=== PATIENT | female | born 1960 | race Caucasian/White ===

== ENCOUNTER → 2016-10-29 | Outpatient (CLI) | payer OTHER ==
--- NOTE | 2016-10-29 12:28 | XR ---
EXAMINATION TYPE: XR KUB DATE OF EXAM: 10/29/2016 12:15 PM CLINICAL HISTORY: Left-sided flank pain. History of bilateral kidney stones. TECHNIQUE: 2 supine KUB images of the abdomen are obtained. COMPARISON: CT abdomen and pelvis November 24, 2015. FINDINGS: Multiple bilateral renal calculi are redemonstrated with at least 15 calculi noted bilatera lly varying in sizes and shapes predominantly small all measuring under 5 mm. Rounded densities in bi lateral pelvis are consistent with phleboliths, right greater than left. There is overall nonobstructive bowel gas pattern. Visualized osseous structures are intact. Visualiz ed lung bases are clear. IMPRESSION: Extensive bilateral nephrolithiasis redemonstrated.
== END | disposition home or self-care (01) ==
LOC: RADXRMAIN 11:59
PROVIDERS: ATTEND Urology
DX: N20.0 Calculus of kidney (principal)
CPT/HCPCS: 74000

== ENCOUNTER → 2017-02-15 | Outpatient (CLI) | payer OTHER ==
[2017-02-15 12:25] LABS: Appearance,Urine Clear (Clear); Bilirubin,Urine Negative (Negative); Glucose,Urine (UA) Negative (Negative); Ketones,Urine Negative (Negative); Leukocyte Esterase,Urine Large (Negative); Mucus,Urine Rare /hpf; Nitrite,Urine Negative (Negative); PH, Urine 6.5 (5.0-8.0); Particle Count 1079; Protein,Urine Negative (Negative); RBC,Urine 18 /hpf (0-5); UA Billing (MACRO vs. MICRO) MICRO; Urobilinogen,Urine <2.0 mg/dL (<2.0); WBC,Urine 44 /hpf (0-5)
--- NOTE | 2017-02-18 09:32 | XR ---
EXAMINATION TYPE: XR abdomen 1V DATE OF EXAM ORDERED: 02/15/2017 HISTORY: N20.0 kidney stones. COMPARISON: Previous study dated 10/29/2016. FINDINGS: There is extensive nephrolithiasis present bilaterally. These are not as well-visualized as on the previous examination. The largest on the left measures approximately 4 cm. All other remainin g stones appear smaller than this. There are multiple phleboliths within the pelvis. The abdominal ga s pattern is normal.. IMPRESSION: STABLE, EXTENSIVE NEPHROLITHIASIS.
== END | disposition home or self-care (01) ==
LOC: LABWHC1 11:06
PROVIDERS: ATTEND Urology
DX: N20.0 Calculus of kidney (principal)
CPT/HCPCS: 74000; 81001

== ENCOUNTER → 2017-05-19 | Outpatient (CLI) | payer OTHER ==
[2017-05-19 10:24] LABS: Basophils % (A) 0 %; Eosinophils # (A) 0.3 k/uL (0-0.7); Eosinophils % (A) 4 %; HCT 43.9 % (34.0-46.0); HDW 2.52; HGB 14.3 gm/dL (11.4-16.0); Luc # (Auto) 0.11; Luc % (Auto) 2; Lymphocytes # (A) 1.8 k/uL (1.0-4.8); Lymphocytes % (A) 29 %; MCH 30.7 pg (25.0-35.0); MCHC 32.6 g/dL (31.0-37.0); MCV 94.4 fL (80.0-100.0); Mean Platelet Volume 9.4; Monocytes # (A) 0.4 k/uL (0-1.0); Monocytes % (A) 7 %; Neutrophils # (A) 3.6 k/uL (1.3-7.7); Neutrophils % (A) 58 %; RBC 4.66 m/uL (3.80-5.40); RDW 12.9 % (11.5-15.5); WBC 6.2 k/uL (3.8-10.6); WBC (Perox) 6.54
[2017-05-19 10:42] LABS: ALT 35 U/L (9-52); AST 20 U/L (14-36); Alkaline Phosphatase 78 U/L (38-126); Anion Gap 6 mmol/L; Blood Urea Nitrogen 16 mg/dL (7-17); Calcium 9.9 mg/dL (8.4-10.2); Carbon Dioxide 30 mmol/L (22-30); Chloride 107 mmol/L (98-107); Cholesterol 213 mg/dL (<200); Glucose 97 mg/dL (74-99); HDL Cholesterol 59 mg/dL (40-60); Non-African American GFR(MDRD) >60 (>60 ml/min/1.73 sqM); Potassium 5.7 mmol/L (3.5-5.1); Sodium 143 mmol/L (137-145); Total Bilirubin 0.5 mg/dL (0.2-1.3); Total Protein 6.6 g/dL (6.3-8.2)
--- NOTE | 2017-05-20 10:57 | MM ---
Reason for exam: additional evaluation requested from prior study. Last mammogram was performed 3 years and 5 months ago. History: Patient has history of breast cancer at age 50. Family history of breast cancer in maternal cousin at age 40. Malignant left breast needle localization of both breasts, November 04, 2010. Malignant left breast needle localization of both breasts, November 04, 2010. Mastectomy of the left breast. Physical Findings: Nurse did not find any significant physical abnormalities on exam. MG Diagnostic Mammo RT w CAD CC and MLO view(s) were taken of the right breast. Prior study comparison: December 03, 2013, right diagnostic mammogram w/CAD. December 01, 2012, right diagnostic mammogram w/CAD. The breast tissue is heterogeneously dense. This may lower the sensitivity of mammography. There is no discrete abnormality. No significant new findings when compared with previous films. These results were verbally communicated with the patient and result sheet given to the patient on 05/19/17. ASSESSMENT: Negative, BI-RAD 1 RECOMMENDATION: Follow-up diagnostic mammogram of the right breast in 1 year.
== END | disposition home or self-care (01) ==
LOC: RADMAMWWP 09:07
PROVIDERS: ATTEND Family Medicine
DX: Z08 Encounter for follow-up examination after completed treatment for malignant neoplasm (principal); Z85.3 Personal history of malignant neoplasm of breast; Z00.00 Encounter for general adult medical examination without abnormal findings
CPT/HCPCS: 80061; 80053; 84443; 85025; 82306; 36415; G0206

== ENCOUNTER → 2017-05-26 | Outpatient (CLI) | payer OTHER ==
--- NOTE | 2017-05-26 11:44 | US ---
EXAMINATION TYPE: US kidneys/renal and bladder DATE OF EXAM: 05/26/2017 COMPARISON: CT abdomen and pelvis November 24, 2015 CLINICAL HISTORY: N20.0 Kidney stone. History of kidney stones EXAM MEASUREMENTS: Right Kidney: 9.5 x 3.2 x 3.6 cm Left Kidney: 10.6 x 4.9 x 4.3 cm Right Kidney: cystic area upper pole = 1.0 x 0.7 x 1.0cm appears simple, possibly new from recent CTS was not identified, multiple dense echogenic areas (stones) noted Left Kidney: multiple dense echogenic areas noted (stones) Bladder: appears wnl Bilateral Jets seen: yes There is no evidence for hydronephrosis at this point in time. No nephrolithiasis is seen. No frandy s are identified. The urinary bladder is anechoic. Bilateral ureteral jets are seen. IMPRESSION: Persistent multiple renal calculi bilaterally without hydronephrosis. Underlying medullary nephrocalc inosis is likely present. Clinical correlation advised.
== END | disposition home or self-care (01) ==
LOC: RADUSWWP 09:02
PROVIDERS: ATTEND Family Medicine
DX: N20.0 Calculus of kidney (principal)
CPT/HCPCS: 76770

== ENCOUNTER → 2017-12-26 | Outpatient (CLI) | payer OTHER ==
--- NOTE | 2017-12-26 14:05 | US ---
EXAMINATION TYPE: US abdomen complete DATE OF EXAM: 12/26/2017 COMPARISON: CT 08/11/2016 CLINICAL HISTORY: 57-year-old female RUQ Pain R10.11. Pt states liver lesion seen on CT, pt following -up/ States LUQ pain, history of renal stones Technique: Multiple sonographic images of the abdomen are obtained. FINDINGS: Liver Length: 16.9 cm Gallbladder Wall: 0.1 cm CBD: 0.4 cm Spleen: 9.1 cm Right Kidney: 9.4 x 3.3 x 4.4 cm Left Kidney: 10.6 x 4.2 x 4.2 cm Pancreas: Tail obscured by overlying bowel gas; visualized portions show no gross abnormality. Liver: Two echogenic lesions within right lobe of liver, 1)= anterior to right kidney 2.5 x 1.3 x 2. 5 cm 2)= at dome= 2.5 x 2.3 x 2.0 cm Gallbladder: wnl Evidence for sonographic Li's sign: No CBD: wnl Spleen: wnl Right Kidney: No evidence of hydro, multiple renal calculi as seen on previous, Cyst upper pole as s een on previous= 1.2 x 1.0 x 1.0 cm. Cortical thinning suggesting underlying chronic medical renal di sease. Left Kidney: No evidence of hydronephrosis. Suggestion of multiple calculi as seen on previous measu ring up to 4 mm. Upper IVC: wnl Abd Aorta: wnl IMPRESSION: 1. 2 echogenic lesions within the right liver lobe measuring 2.5 cm each, relatively stable from the CT of 08/11/2016 and most suggestive of benign hemangiomas. 2. Bilateral nephrolithiasis without hydronephrosis. Atrophic right kidney.
== END | disposition home or self-care (01) ==
LOC: RADUSWWP 13:14
PROVIDERS: ATTEND Family Medicine
DX: N20.0 Calculus of kidney (principal); N26.1 Atrophy of kidney (terminal); K76.9 Liver disease, unspecified
CPT/HCPCS: 76700

== ENCOUNTER → 2018-11-15 | Outpatient (CLI) | payer OTHER ==
--- NOTE | 2018-11-15 14:34 | BD ---
EXAMINATION TYPE: Axial Bone Density DATE OF EXAM: 11/15/2018 COMPARISON: NONE CLINICAL HISTORY: screening Height: 5'2 Weight: 108 FRAX RISK QUESTIONS: History of Fracture in Adulthood: y Secondary Osteoporosis: Current Tobacco Use: n RISK FACTORS HISTORY OF: History of Wrist Fracture: rt When: 2018 Diet low in dairy products/other sources of calcium: y Postmenopausal woman: y MEDICATIONS: Additional History: breast cancer left , 2009. EXAM MEASUREMENTS: Bone mineral densitometry was performed using the [employer] System. Bone mineral density as measured about the Lumbar spine is: ----- L1-L4(G/cm2): 0.781 T Score Values are as follows: ----- L2: -3.4 ----- L3: -3.3 ----- L4: -3.2 ----- L1-L4: -3.3 Bone mineral density about the R hip (g/cm2): 0.726 Bone mineral density about the L hip (g/cm2): 0.711 T Score values are as follows: -----R Neck: -2.2 -----L Neck: -2.4 -----R Total: -2.6 -----L Total: -2.7 IMPRESSION: Osteoporosis (T Score less than -2.5). There is increased fracture risk and therapy is usually indicated based on age. Re-Screen 1-2 years. NOTE: T-SCORE=SD OF THE YOUNG ADULT MEAN.
== END ==
LOC: RADBDWWP 12:42
PROVIDERS: ATTEND Family Medicine
DX: M81.0 Age-related osteoporosis without current pathological fracture (principal)
CPT/HCPCS: 77080

== ENCOUNTER 2019-05-17 23:48 | Emergency (ER) | payer OTHER ==
[2019-05-18 00:54] LABS: Basophils # (A) 0.1 k/uL (0-0.2); Basophils % (A) 1 %; Eosinophils # (A) 0.5 k/uL (0-0.7); Eosinophils % (A) 4 %; HCT 37.9 % (34.0-46.0); Lymphocytes # (A) 2.6 k/uL (1.0-4.8); Lymphocytes % (A) 22 %; MCH 28.8 pg (25.0-35.0); MCHC 31.7 g/dL (31.0-37.0); MCV 91.1 fL (80.0-100.0); Mean Platelet Volume 7.9; Monocytes # (A) 0.5 k/uL (0-1.0); Monocytes % (A) 4 %; Neutrophils # (A) 8.3 k/uL (1.3-7.7); Neutrophils % (A) 69 %; Platelet Count 291 k/uL (150-450); RBC 4.16 m/uL (3.80-5.40); RDW 13.9 % (11.5-15.5); WBC 12.2 k/uL (3.8-10.6)
[2019-05-18 01:00] LABS: Albumin 3.9 g/dL (3.5-5.0); Calcium 9.4 mg/dL (8.4-10.2); Potassium 4.2 mmol/L (3.5-5.1); Total Bilirubin 0.1 mg/dL (0.2-1.3); Total Protein 6.4 g/dL (6.3-8.2)
--- NOTE | 2019-05-18 01:08 | ED ---
Abdominal Pain HPI - General Chief Complaint: Abdominal Pain Stated Complaint: poss kidney stone Time Seen by Provider: 05/18/19 00:13 Source: patient Mode of arrival: ambulatory Limitations: no limitations - History of Present Illness MD Complaint: flank pain Onset/Timin -: month(s) Location: R flank Radiation: RLQ Migration to: no migration Severity: moderate Quality: sharp Consistency: colicky Improves With: nothing Worsens With: nothing Associated Symptoms: denies other symptoms - Related Data Allergies Allergy/AdvReac Type Severity Reaction Status Date / Time No Known Allergies Allergy Verified 05/18/19 00:09 Review of Systems ROS Statement: Those systems with pertinent positive or pertinent negative responses have been documented in the HPI. ROS Other: All systems not noted in ROS Statement are negative. Constitutional: Denies: fever, chills Respiratory: Denies: cough, dyspnea Cardiovascular: Denies: chest pain, palpitations Gastrointestinal: Reports: as per HPI, abdominal pain. Denies: nausea, vomiting, diarrhea, constipation Genitourinary: Denies: dysuria, frequency, hematuria, discharge Musculoskeletal: Denies: back pain Skin: Denies: rash Neurological: Denies: headache Past Medical History Past Medical History: Cancer, Eye Disorder Additional Past Medical History / Comment(s): kidney stones , skin caner, Hepatitis C ( years ago ) History of Any Multi-Drug Resistant Organisms: None Reported Past Surgical History: Breast Surgery Additional Past Surgical History / Comment(s): cyst , lithotripsy, stents placed and removed. Past Psychological History: No Psychological Hx Reported Smoking Status: Former smoker Past Alcohol Use History: None Reported Past Drug Use History: None Reported General Exam Limitations: no limitations General appearance: alert, in no apparent distress Head exam: Present: atraumatic, normocephalic Eye exam: Present: normal appearance. Absent: scleral icterus, conjunctival injection Respiratory exam: Present: normal lung sounds bilaterally. Absent: respiratory distress, wheezes, rales, rhonchi, stridor Cardiovascular Exam: Present: regular rate, normal rhythm, normal heart sounds. Absent: systolic murmur, diastolic murmur, rubs, gallop GI/Abdominal exam: Present: soft. Absent: distended, tenderness, guarding, rebound, rigid, mass Extremities exam: Present: normal inspection, normal capillary refill. Absent: pedal edema, calf tenderness Back exam: Present: normal inspection, CVA tenderness (R). Absent: CVA tenderness (L) Neurological exam: Present: alert, normal gait Skin exam: Present: warm, dry, intact, normal color. Absent: rash Course Vital Signs 05/18/19 05/18/19 05/18/19 00:02 01:39 03:06 Temperature 97.2 F L 98.6 F Pulse Rate 84 65 63 Respiratory 16 18 17 Rate Blood Pressure 158/98 104/70 107/77 O2 Sat by Pulse 98 97 99 Oximetry Medical Decision Making - Medical Decision Making Reviewed the results with the patient, who then requested that we page her urologist Dr. Kulwant Holt from the [facility] urology department. I did speak with the hospital service unit operator and was informed that a doctor Lia is covering tonight and they did page. Discussed further care with the patient, and she states that she does not see the urologist here in town. She would like to follow with her physician and again there patient had not returned call at this point. The patient states she is tired of waiting and would like to go home and rest. We discussed appropriate further care and follow-up. He does state that she started a course of antibiotics today taking the first dose of ciprofloxacin before she came here. She will continue the course, and follow with her urologist. - Lab Data Result diagrams: 05/18/19 00:35 05/18/19 00:35 Lab Results 05/18/19 05/18/19 05/18/19 Range/Units 00:35 00:35 00:43 WBC 12.2 H (3.8-10.6) k/uL RBC 4.16 (3.80-5.40) m/uL Hgb 12.0 (11.4-16.0) gm/dL Hct 37.9 (34.0-46.0) % MCV 91.1 (80.0-100.0) fL MCH 28.8 (25.0-35.0) pg MCHC 31.7 (31.0-37.0) g/dL RDW 13.9 (11.5-15.5) % Plt Count 291 (150-450) k/uL Neutrophils % 69 % Lymphocytes % 22 % Monocytes % 4 % Eosinophils % 4 % Basophils % 1 % Neutrophils # 8.3 H (1.3-7.7) k/uL Lymphocytes # 2.6 (1.0-4.8) k/uL Monocytes # 0.5 (0-1.0) k/uL Eosinophils # 0.5 (0-0.7) k/uL Basophils # 0.1 (0-0.2) k/uL Sodium 141 (137-145) mmol/L Potassium 4.2 (3.5-5.1) mmol/L Chloride 104 (98-107) mmol/L Carbon Dioxide 27 (22-30) mmol/L Anion Gap 10 mmol/L BUN 20 H (7-17) mg/dL Creatinine 0.88 (0.52-1.04) mg/dL Est GFR (CKD-EPI)AfAm 84 (>60 ml/min/1.73 sqM) Est GFR (CKD-EPI)NonAf 73 (>60 ml/min/1.73 sqM) Glucose 123 H (74-99) mg/dL Calcium 9.4 (8.4-10.2) mg/dL Total Bilirubin 0.1 L (0.2-1.3) mg/dL AST 20 (14-36) U/L ALT 16 (9-52) U/L Alkaline Phosphatase 80 (38-126) U/L Total Protein 6.4 (6.3-8.2) g/dL Albumin 3.9 (3.5-5.0) g/dL Amylase 127 H (30-110) U/L Lipase 140 (23-300) U/L Urine Color Yellow Urine Appearance Cloudy H (Clear) Urine pH 6.5 (5.0-8.0) Ur Specific [place] 1.012 (1.001-1.035) Urine Protein Trace H (Negative) Urine Glucose (UA) Negative (Negative) Urine Ketones Negative (Negative) Urine Blood Moderate H (Negative) Urine Nitrite Negative (Negative) Urine Bilirubin Negative (Negative) Urine Urobilinogen <2.0 (<2.0) mg/dL Ur Leukocyte Esterase Large H (Negative) Urine RBC 152 H (0-5) /hpf Urine WBC 168 H (0-5) /hpf Ur Squamous Epith Cells 4 (0-4) /hpf Urine Bacteria Rare H (None) /hpf Urine Mucus Rare H (None) /hpf Disposition Clinical Impression: Kidney stone Disposition: HOME SELF-CARE Condition: Fair Instructions (If sedation given, give patient instructions): Kidney Stones (ED) Is patient prescribed a controlled substance at d/c from ED?: No Referrals: Clint Gallardo MD [Primary Care Provider] - 1-2 days
[2019-05-18 01:09] LABS: Appearance,Urine Cloudy (Clear); Bacteria,Urine Rare /hpf; Bilirubin,Urine Negative (Negative); Blood,Urine Moderate (Negative); Color,Urine Yellow; Glucose,Urine (UA) Negative (Negative); Ketones,Urine Negative (Negative); Leukocyte Esterase,Urine Large (Negative); Mucus,Urine Rare /hpf; Nitrite,Urine Negative (Negative); PH, Urine 6.5 (5.0-8.0); Protein,Urine Trace (Negative); RBC,Urine 152 /hpf (0-5); Specific Gravity,Urine 1.012 (1.001-1.035); Squamous Epithelial Cell,Urine 4 /hpf (0-4); Urobilinogen,Urine <2.0 mg/dL (<2.0); WBC,Urine 168 /hpf (0-5)
--- NOTE | 2019-05-18 02:08 | CT ---
EXAM: CT Abdomen and Pelvis Without Intravenous Contrast CLINICAL HISTORY: Right flank pain. TECHNIQUE: Axial computed tomography images of the abdomen and pelvis without intravenous contrast. CTDI is 6.4 mGy and DLP is 301.2 mGy-cm. This CT exam was performed using one or more of the following dose reduction techniques: automated exposure control, adjustment of the mA and/or kV according to patient size, and/or use of iterative reconstruction technique. COMPARISON: 08/11/2016. FINDINGS: Limitations: Limited evaluation of the viscera due to lack of intravenous contrast administration. Lung bases: Minimal subsegmental atelectasis within the inferior lingula region. Pleural space: No pleural effusions. Heart: Small pericardial effusion. ABDOMEN: Liver: Unremarkable. Gallbladder and bile ducts: Unremarkable. No calcified stones. No ductal dilation. Pancreas: Unremarkable. No ductal dilation. Spleen: Unremarkable. No splenomegaly. Adrenals: Probable 0.6 cm adenoma of the right adrenal gland. Kidneys and ureters: Diffuse and numerous nonobstructing calculi throughout the right kidney is again noted, similar to the previous study. Diffuse nonobstructing calculi throughout the left kidney is noted, again similar to the previous study. No hydronephrosis bilaterally. 0. 65 cm calculus is noted at the junction of the proximal to mid right ureter, best seen on series 201 image 60. 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 Two 0.3 cm nonobstructing calculi in the distal left ureter also noted. Stomach and bowel: Unremarkable. No obstruction. No mucosal thickening. PELVIS: Appendix: No findings to suggest acute appendicitis. Bladder: Unremarkable. No stones. Reproductive: Unremarkable as visualized. ABDOMEN and PELVIS: Intraperitoneal space: Unremarkable. No free air. No significant fluid collection. Bones/joints: Mild to moderate degenerative disc disease of the spinal column. Mild to moderate osteoarthritic changes about the sacroiliac joints. No acute fracture. No dislocation. Soft tissues: Unremarkable. Vasculature: Numerous pelvic phleboliths are noted similar to the previous study. Lymph nodes: Unremarkable. No enlarged lymph nodes. IMPRESSION: No hydronephrosis. Numerous bilateral nonobstructing renal calculi. The possibility of nephrocalcinosis should be considered. Proximal right ureteral calculus as discussed above. Bilateral distal calculi in both ureters. Please see above discussion. The bladder is grossly unremarkable. No inflammatory changes.
[2019-05-18] MEDS: TAMSULOSIN 0.4 MG CAP.ER.24H PO STA (03:03)
[2019-05-18 03:16] VITALS: BP 107/77; PULSE 63; RESP 17; TEMP 98.6
== END 2019-05-18 03:32 | disposition home or self-care (01) ==
LOC: EC 23:48
DX: N20.0 Calculus of kidney (principal); F17.200 Nicotine dependence, unspecified, uncomplicated; Z85.828 Personal history of other malignant neoplasm of skin; Z86.19 Personal history of other infectious and parasitic diseases; Z98.890 Other specified postprocedural states
CPT/HCPCS: 36415; 74176; 80053; 81001; 82150; 83690; 85025; 99284

== ENCOUNTER → 2019-05-25 | Outpatient (CLI) | payer OTHER | END | disposition home or self-care (01) | LOC: LABWHC1 14:46 | PROVIDERS: ATTEND Urology | DX: Z01.812 Encounter for preprocedural laboratory examination (principal); N20.0 Calculus of kidney; N20.1 Calculus of ureter | CPT/HCPCS: 36415; 87086; 93005 ==

== ENCOUNTER → 2019-10-10 | Outpatient (CLI) | payer OTHER ==
[2019-10-10 10:18] VITALS: BP 111/73; PULSE 64; RESP 18; TEMP 98
--- NOTE | 2019-10-10 11:13 | P.HPOB ---
History of Present Illness H&P Date: 10/10/19 Chief Complaint: The patient is here for her routine gynecologic exam and ma mmogram. This is a 59-year-old 032 with an LMP of 2009. The patient is here to reestablish with this office. She is status post tubal ligation. It has been about 5 years since her last pelvic exam. She states she believes she had a yeast infection after taking antibiotics a few weeks ago. She was treated with a pill, but she states she still feels slightly irritated and symptoms are not completely gone. She is otherwise without complaints and denies any postmenopausal bleeding. She recently got back together with her ex- after 2 years of being apart. She states he had been with somebody else during the 2 years apart. Review of Systems The patient's weight has been stable over the last year. She denies respiratory, cardiac, or G.I. problems. Past Medical History Past Medical History: Cancer, Eye Disorder, Renal Disease Additional Past Medical History / Comment(s): Left breast cancer 2009, kidney stones , skin cancer, glaucoma, Hepatitis C (treated years ago), and osteoporosis 2018. 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 History of Any Multi-Drug Resistant Organisms: None Reported Past Surgical History: Breast Surgery Additional Past Surgical History / Comment(s): Right salpingo-oophorectomy 2009(benign), lithotripsy, stents placed and removed for kidney stones. Colonoscopy 2014(next after 5yr per pt). Past Psychological History: No Psychological Hx Reported, Anxiety Smoking Status: Former smoker Past Alcohol Use History: None Reported Additional Past Alcohol Use History / Comment(s): Quit smoking in 2019. Previous heavy alcohol use as a teenager. Past Drug Use History: None Reported Additional History: She has been twice. She has been back with her second ex- on and off. 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 - Past Family History Father Family Medical History: Cancer Additional Family Medical History / Comment(s): Lung cancer. Maternal cousin Family Medical History: Cancer Additional Family Medical History / Comment(s): Breast cancer. Medications and Allergies Home Medications Medication Instructions Recorded Confirmed Type No Known Home Medications 10/10/19 10/10/19 History Allergies Allergy/AdvReac Type Severity Reaction Status Date / Time No Known Allergies Allergy Verified 10/10/19 10:13 Exam Vital Signs Temp Pulse Resp BP Pulse Ox 10/10/19 10:16 98.0 F 64 18 111/73 100 Intake and Output 10/09/19 10/10/19 10/10/19 22:59 06:59 14:59 Other: Weight 49.895 kg Height 5 feet 3 inches, weight 110 pounds, BMI 19.5. This is a well-developed well-nourished white female who is alert and oriented times 3 in no acute distress. HEENT: Within normal limits. NECK: Supple without mass or thyromegaly. CHEST AND LUNGS: Clear to auscultation. HEART: Regular rate and rhythm. BREASTS: Right breast is without mass or discharge. Left side is consistent with previous left mastectomy. There are no masses or tenderness. AXILLARY EXAM: Negative for adenopathy. BACK: Negative for CVA tenderness. ABDOMEN: Soft, nontender, without palpable masses. PELVIC EXAM: Normal external genitalia with mild to moderate atrophy. Cervix and vagina appear normal with mild atrophy. There is no unusual discharge. There is no evidence of prolapse. The uterus is midposition, nongravid size and nontender. There are no palpable adnexal masses or tenderness. RECTAL EXAM: Rectovaginal exam is negative for mass or tenderness and is negative for occult blood. EXTREMITIES: Nontender. IMPRESSION: 1. 59-year-old menopausal female with normal gynecologic exam. 2. Slight vulvar irritation and pruritus after treatment for yeast infection with Diflucan weeks ago without any significant physical findings at this time. Possible residual symptoms or possible persistent Candidiasis. 3. Recent sexual activity with her ex- after she knows that he has been with other sexual partners. High-risk sexual activity. 4. History of osteoporosis per the patient and she is declining medication for this. 5. History of left breast cancer status post mastectomy. No evidence of recurrence on exam today. PLAN: 1. Pap smear was performed. 2. Self breast awareness was discussed with the patient. 3. Diagnostic right mammogram will be done today. 4. GC and Chlamydia testing was obtained from the cervix. Affirm nucleic acid testing was obtained from the vagina. This will include testing for Trichomonas, Gardnerella, and Elise. STD blood testing recommended to the patient and she is declining blood tests. 5. Osteoporosis management was discussed. I have stressed the importance of adequate calcium, vitamin D and regular exercise. Recommended amounts of calcium and vitamin D were also discussed. I have also recommended that she consider treatment for the osteoporosis with medicine. She was offered this by a bone specialist last year when she was diagnosed with osteoporosis. She declined medications at that time and again is declining medications. She understands that she is at an increased risk for bone fracture with the diagnosis of osteoporosis. 6. She believes her colonoscopy is due and have recommended that she proceed having this done. She can have this done through her primary care physician. 7. STD prevention was discussed. I have stressed the importance of limiting sexual partners and to avoid sexual partners who have multiple sexual partners. I have recommended that she use condoms if she is sexually active. 8. She was advised to return in one year for her annual well woman exam.
--- NOTE | 2019-10-10 11:37 | MM ---
Reason for exam: additional evaluation requested from prior study. Last mammogram was performed 2 years and 5 months ago. History: Patient has history of breast cancer at age 50. Family history of breast cancer in maternal cousin at age 40. Malignant left breast needle localization of both breasts, November 04, 2010. Malignant left breast needle localization of both breasts, November 04, 2010. Mastectomy of the left breast. Physical Findings: Dr. Hayes did breast exam. MG Diagnostic Mammo RT w CAD CC and MLO view(s) were taken of the right breast. Prior study comparison: May 19, 2017, right breast MG diagnostic mammo RT w CAD. December 03, 2013, right diagnostic mammogram w/CAD. The breast tissue is heterogeneously dense. This may lower the sensitivity of mammography. No suspicious abnormality. No significant new findings when compared with previous films. These results were verbally communicated with the patient and result sheet given to the patient on 10/10/19. ASSESSMENT: Negative, BI-RAD 1 RECOMMENDATION: Follow-up diagnostic mammogram of the right breast in 1 year.
[2019-10-11 04:38] LABS: Gardnerella Positive (Negative); Source Vagina; Trichomonas Negative (Negative)
[2019-10-11 15:03] LABS: C. trachomatis,PCR Negative (Neg,Equiv); Chlamydia trachomatis Source Cervix; N. gonorrhoeae,PCR Negative (Neg,Equiv); Neisseria Source Cervix
== END ==
LOC: WWCWWP 10:06
PROVIDERS: ATTEND Obstetrics & Gynecology
DX: Z08 Encounter for follow-up examination after completed treatment for malignant neoplasm (principal); L29.2 Pruritus vulvae; Z11.3 Encounter for screening for infections with a predominantly sexual mode of transmission; Z85.3 Personal history of malignant neoplasm of breast
CPT/HCPCS: 77065; 87480; 87491; 87510; 87591; 87660

== ENCOUNTER → 2019-11-16 | Outpatient (CLI) | payer OTHER ==
[2019-11-16 07:13] LABS: Basophils % (A) 0 %; Eosinophils # (A) 0.3 k/uL (0-0.7); Eosinophils % (A) 4 %; HCT 44.2 % (34.0-46.0); HGB 13.8 gm/dL (11.4-16.0); Lymphocytes # (A) 1.9 k/uL (1.0-4.8); Lymphocytes % (A) 27 %; MCH 29.2 pg (25.0-35.0); MCHC 31.1 g/dL (31.0-37.0); MCV 93.8 fL (80.0-100.0); Mean Platelet Volume 10.4; Monocytes # (A) 0.5 k/uL (0-1.0); Monocytes % (A) 7 %; Neutrophils # (A) 4.2 k/uL (1.3-7.7); Neutrophils % (A) 61 %; Platelet Count 159 k/uL (150-450); RBC 4.71 m/uL (3.80-5.40); RDW 12.9 % (11.5-15.5)
[2019-11-16 07:22] LABS: Albumin 4.3 g/dL (3.5-5.0); Calcium 9.4 mg/dL (8.4-10.2); Potassium 4.3 mmol/L (3.5-5.1); Total Bilirubin 0.3 mg/dL (0.2-1.3); Total Protein 6.8 g/dL (6.3-8.2)
--- NOTE | 2019-11-16 08:07 | US ---
EXAMINATION TYPE: US abdomen complete DATE OF EXAM: 11/16/2019 COMPARISON: Abdominal ultrasound dated 12/26/2017 CLINICAL HISTORY: R10.19 Abdominal pain. RUQ pain for 1 month, vomiting EXAM MEASUREMENTS: Liver Length: 12.7 cm Gallbladder Wall: 0.3 cm CBD: 0.4 cm Spleen: 10.6 cm Right Kidney: 9.6 x 3.7 x 4.2 cm Left Kidney: 9.6 x 4.2 x 3.7 cm Pancreas: Tail obscured by overlying bowel gas Liver: Redemonstration of 2 hyperechoic masses are at the first measures 2.6 x 1.9 x 2.0cm (previousl y measured 2.5 x 1.3 x 2.5 cm anterior to the right kidney) and 2.2 x 2.6 x 2.1cm (previously measure d 2.5 x 2.3 x 2.0 cm at the hepatic dome) Gallbladder: no evidence of stones Evidence for sonographic Li's sign: no CBD: wnl Spleen: wnl Right Kidney: multiple stones noted with largest = 1.2cm, cystic areas noted = 1.1cm upper pole and 1.1cm mid Left Kidney: multiple stones noted with largest = 1.0cm Upper IVC: wnl Abd Aorta: wnl The liver contains 2 masses as described above. The intrahepatic portion of the IVC and proximal abdo alberto aorta are within normal limits. There is no evidence of cholelithiasis. Common bile duct is u nremarkable. The visualized portions of the pancreas are homogenous. The spleen is unremarkable. K idneys are symmetric and free of hydronephrosis. No renal lesions are seen. IMPRESSION: 1. There are changes in measurement size of the hyperechoic hepatic masses that could reflect technic al differences and obliquity of imaging. However given some interval growth from the prior of 2018 mo re definitive characterization with three-phase enhanced CT or MR abdomen is recommended. 2. Bilateral renal calculi measuring up to 1.2 cm on the right and 1.0 cm on the left. 3. No sonographic evidence of cholelithiasis nor acute cholecystitis in this patient with right upper quadrant pain and vomiting.
== END | disposition home or self-care (01) ==
LOC: RADUSWWP 06:43
PROVIDERS: ATTEND Family Medicine
DX: N20.0 Calculus of kidney (principal); R16.0 Hepatomegaly, not elsewhere classified; Z00.00 Encounter for general adult medical examination without abnormal findings
CPT/HCPCS: 76700; 80053; 80061; 82306; 85025

== ENCOUNTER → 2020-01-14 | Outpatient (CLI) | payer OTHER ==
--- NOTE | 2020-01-14 19:45 | MR ---
EXAMINATION TYPE: MR liver wo/w con DATE OF EXAM: 01/14/2020 COMPARISON: Ultrasound 11/16/2019 HISTORY: Rt side abdominal pain CONTRAST: Standard multiplanar, multisequence MRI departmental protocol utilizing 5 mL intravenous Gadavist jolynn olinium contrast. FINDINGS: Near the dome of the liver there is a peripherally enhancing lesion noted measuring 2.2 cm which comp letely fills in on delayed images and is compatible with hemangioma. A second lesion near the central portion of the liver left hepatic lobe medial segment demonstrates similar characteristics although does not completely fill in and is also felt to reflect cavernous hemangioma. Additional 8.5 mm lesio n is noted within the periphery of the posterior segment right hepatic lobe. No additional lesions se en with certainty. The gallbladder is free of cholelithiasis. Pancreas spleen and adrenal glands are unremarkable. Renal cysts are noted bilaterally. IMPRESSION: Findings compatible with hepatic cavernous hemangiomas.
== END | disposition home or self-care (01) ==
LOC: RADMRIMAIN 14:36
PROVIDERS: ATTEND Internal Medicine Gastroenterology
DX: K76.9 Liver disease, unspecified (principal)
CPT/HCPCS: 74183; A9585

== ENCOUNTER → 2021-07-22 | Outpatient (CLI) | payer OTHER ==
--- NOTE | 2021-07-22 12:09 | MM ---
Reason for exam: additional evaluation requested from prior study. Last mammogram was performed 1 year and 9 months ago. History: Patient is postmenopausal, has history of breast cancer at age 50, and history of other cancer. Family history of breast cancer in maternal cousin at age 40. Malignant left breast needle localization of both breasts, November 04, 2010. Malignant left breast needle localization of both breasts, November 04, 2010. Mastectomy of the left breast. Took hormonal contraceptives for 1 year. Physical Findings: Nurse did not find any significant physical abnormalities on exam. MG Diagnostic Mammo RT w CAD CC, MLO, LM, and spot compression CC view(s) were taken of the right breast. Prior study comparison: October 10, 2019, right breast MG diagnostic mammo RT w CAD. May 19, 2017, right breast MG diagnostic mammo RT w CAD. The breast tissue is heterogeneously dense. This may lower the sensitivity of mammography. Lateral asymmetric density appear more defined but disperses on additional views. These results were verbally communicated with the patient and result sheet given to the patient on 07/22/21. ASSESSMENT: Benign, BI-RAD 2 RECOMMENDATION: Routine screening mammogram of the right breast in 1 year.
== END | disposition home or self-care (01) ==
LOC: RADMAMWWP 11:06
PROVIDERS: ATTEND Family Medicine
DX: N64.89 Other specified disorders of breast (principal); Z85.3 Personal history of malignant neoplasm of breast
CPT/HCPCS: 77065

== ENCOUNTER 2021-11-28 14:18 | Emergency (ER) | payer OTHER ==
[2021-11-28 14:46] VITALS: BP 142/77; PULSE 56; RESP 18; TEMP 97.6
[2021-11-28] MEDS ORDERED: ORPHENADRINE 30 MG/ML 2 ML VIAL IM STA (17:06)
--- NOTE | 2021-11-28 17:14 | ED ---
General Adult HPI - General Chief complaint: Neck Pain/Injury Stated complaint: Headache Time Seen by Provider: 11/28/21 17:00 Source: patient, RN notes reviewed, old records reviewed Mode of arrival: ambulatory Limitations: no limitations - History of Present Illness Initial comments: 61-year-old female presents ambulatory with complaints of left sided neck pain that radiates up into the back of her head. She states has been present for 1 day. No pain yesterday. Denies any fevers, no nausea vomiting or diarrhea. She does have history of breast cancer over 15 years ago in complete remission. She is a smoker. -: days(s) (1) Location: neck (posterior and left trapezius) Radiation: proximal (occiput) Quality: constant, other (tightness) Consistency: constant Improves with: none Worsens with: movement Associated Symptoms: denies other symptoms Treatments Prior to Arrival: none - Related Data Home Medications Medication Instructions Recorded Confirmed Calcium Carbonate [Calcium] 600 mg PO DAILY 11/28/21 11/28/21 Cholecalciferol [Vitamin D3 (25 25 mcg PO DAILY 11/28/21 11/28/21 Mcg = 1000 Iu)] Tamsulosin [Flomax] 0.4 mg PO DAILY 11/28/21 11/28/21 Previous Rx's Medication Instructions Recorded Cyclobenzaprine [Flexeril] 5 mg PO TID PRN 3 Days #9 tablet 11/28/21 Ibuprofen [Motrin] 400 mg PO Q8HR PRN #30 tab 11/28/21 Lidocaine 5% Patch [Lidoderm 5% 1 patch TOPICAL DAILY PRN #7 patch 11/28/21 Patch] Allergies Allergy/AdvReac Type Severity Reaction Status Date / Time heparin (porcine) Allergy Swelling Verified 11/28/21 17:50 Review of Systems ROS Statement: Those systems with pertinent positive or pertinent negative responses have been documented in the HPI. ROS Other: All systems not noted in ROS Statement are negative. Past Medical History Past Medical History: Cancer, Eye Disorder, Renal Disease Additional Past Medical History / Comment(s): Left breast cancer 2009, kidney stones , skin cancer, glaucoma, Hepatitis C (treated years ago), and osteoporosis 2018. 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 History of Any Multi-Drug Resistant Organisms: None Reported Past Surgical History: Breast Surgery Additional Past Surgical History / Comment(s): Right salpingo-oophorectomy 2010(benign), lithotripsy, stents placed and removed for kidney stones. Colonoscopy 2015(next after 5yr per pt). Past Psychological History: No Psychological Hx Reported, Anxiety Past Alcohol Use History: None Reported Past Drug Use History: None Reported - Past Family History Father Family Medical History: Cancer Additional Family Medical History / Comment(s): Lung cancer. Maternal cousin Family Medical History: Cancer Additional Family Medical History / Comment(s): Breast cancer. General Exam Limitations: no limitations General appearance: alert, in no apparent distress Head exam: Present: atraumatic, normocephalic, normal inspection Eye exam: Present: normal appearance ENT exam: Present: mucous membranes moist, other (Tonsil stone right side) Expanded Throat exam: negative: tonsillar erythema, tonsillar exudate, R peritonsillar mass, L peritonsillar mass Neck exam: Present: normal inspection, tenderness (Trapezius), full ROM. Absent: meningismus, lymphadenopathy, thyromegaly Respiratory exam: Present: normal lung sounds bilaterally. Absent: respiratory distress, wheezes, rales, rhonchi, stridor, accessory muscle use, decreased elida th sounds Cardiovascular Exam: Present: bradycardia, normal heart sounds Back exam: Absent: tenderness Neurological exam: Present: alert, oriented X3, normal gait Psychiatric exam: Present: normal affect, normal mood Skin exam: Present: warm, dry, normal color. Absent: cyanosis, diaphoretic Course Vital Signs 11/28/21 14:44 Temperature 97.6 F Pulse Rate 56 L Respiratory 18 Rate Blood Pressure 142/77 O2 Sat by Pulse 95 Oximetry - Reevaluation(s) Reevaluation #1: 11/28/21 18:13 Patient states that she has a "kidney stone stuck" in her and wants to know if her urine is clear. UA was ordered. She denies dysuria, pain or fevers. Time: 18:13 Medical Decision Making - Medical Decision Making Patient complaining of left-sided neck pain worse with movement of the head to the right. She describes the pain as tight and states that she can feel a knot which is not palpable. She denies any injury. She has no fevers no nausea vomiting or diarrhea. Patient does have pain with palpation along the left sternocleidomastoideus muscle. She has no focal neurological deficits she denies headache. She is ambulatory with a steady gait. She was given Norflex and a Lidoderm patch in the emergency room. She was offered Toradol and declined. I instructed her to follow-up with her primary care doctor and return to the emergency room with any new or concerning symptoms. I did tell her that this pain may take a week or more to resolve and she used anti-inflammatories and medications as prescribed. Patient did request that we check her urine for concerns because of a recently diagnosed kidney stone. Patient left prior to results being back. Disposition Clinical Impression: Strain of neck muscle Disposition: HOME SELF-CARE Condition: Good Instructions (If sedation given, give patient instructions): Cervical Strain (ED) Additional Instructions: Use Lidoderm patches, Flexeril and Motrin as prescribed. Follow-up with your primary care doctor on Tuesday. You can also use heat to help relax your neck muscles. Return to the emergency room with any new or concerning symptoms. Prescriptions: Cyclobenzaprine [Flexeril] 5 mg PO TID PRN 3 Days #9 tablet PRN Reason: Pain Lidocaine 5% Patch [Lidoderm 5% Patch] 1 patch TOPICAL DAILY PRN #7 patch PRN Reason: Pain Ibuprofen [Motrin] 400 mg PO Q8HR PRN #30 tab PRN Reason: Pain Is patient prescribed a controlled substance at d/c from ED?: No Referrals: Edison Stroud MD [Primary Care Provider] - 1-2 days Time of Disposition: 19:19
[2021-11-28] MEDS ORDERED: LIDOCAINE 5% PATCH TOPICAL SCH (17:15)
[2021-11-28] MEDS ORDERED: KETOROLAC 15 MG/ML 1 ML VIAL IM STA (18:34)
[2021-11-28 20:23] LABS: Appearance,Urine Clear (Clear); Bacteria,Urine Rare /hpf; Bilirubin,Urine Negative (Negative); Blood,Urine Small (Negative); Color,Urine Light Yellow; Glucose,Urine (UA) Negative (Negative); Hyaline Casts,Urine 1 /lpf (0-2); Ketones,Urine Negative (Negative); Leukocyte Esterase,Urine Small (Negative); Mucus,Urine Rare /hpf; Nitrite,Urine Negative (Negative); Protein,Urine Negative (Negative); RBC,Urine 1 /hpf (0-5); Specific Gravity,Urine 1.007 (1.001-1.035); Urobilinogen,Urine <2.0 mg/dL (<2.0); WBC,Urine 5 /hpf (0-5)
== END 2021-11-28 19:12 | disposition home or self-care (01) ==
LOC: EC 14:18
DX: S16.1XXA Strain of muscle, fascia and tendon at neck level, initial encounter (principal); Z88.8 Allergy status to other drugs, medicaments and biological substances; X58.XXXA Exposure to other specified factors, initial encounter
CPT/HCPCS: 81001; 99284; 96372; J2360

== ENCOUNTER → 2021-12-04 | Outpatient (CLI) | payer OTHER ==
--- NOTE | 2021-12-04 07:39 | XR ---
EXAMINATION TYPE: XR abdomen 1V DATE OF EXAM: 12/04/2021 7:33 AM CLINICAL HISTORY: Kidney stones TECHNIQUE: Single supine KUB image of the abdomen is obtained. COMPARISON: CT abdomen and pelvis 2019. FINDINGS: Innumerable small bilateral renal calculi are redemonstrated. Overall nonobstructive bowel gas pattern. Moderate fecal prominence in the cecum. Visualized lung bas es are clear. Scattered bilateral pelvic phleboliths redemonstrated greater on the right. Osseous str uctures are intact. IMPRESSION: As above.
== END | disposition home or self-care (01) ==
LOC: RADXRMAIN 07:05
PROVIDERS: ATTEND Urology
DX: N20.0 Calculus of kidney (principal); I87.8 Other specified disorders of veins
CPT/HCPCS: 74018

== ENCOUNTER → 2021-12-04 | Outpatient (CLI) | payer OTHER ==
--- NOTE | 2021-12-04 08:37 | CT ---
EXAMINATION TYPE: CT brain wo con DATE OF EXAM: 12/04/2021 HISTORY: Lymphadenopathy. Headache with dizziness per patient. CT DLP: 1142.57 mGycm. Automated Exposure Control for Dose Reduction was Utilized. TECHNIQUE: CT scan of the head is performed without contrast. COMPARISON: None. FINDINGS: There is no acute intracranial hemorrhage or midline shift identified. Ventricles and sul ci within normal limits in size for patient's age. Some scattered areas of low attenuation throughout the deep and periventricular white matter. The globes are intact and the visualized sinuses are henok ar. Nasal septum deviated to right of midline. IMPRESSION: No acute intracranial hemorrhage or midline shift. There is [id number] nonspecifi c white matter change is favored a basis of product of chronic small vessel ischemic change in patien t of this age.
--- NOTE | 2021-12-04 19:45 | CT ---
EXAMINATION TYPE: CT soft tissue neck wo con CT DLP: 316.35 mGycm, Automated exposure control for dose reduction was used. DATE OF EXAM: 12/04/2021 7:45 AM COMPARISON: MRI neck 10/06/2011. CLINICAL INDICATION:Female, 61 years old with history of R59.0 lymphadenopathy; TECHNIQUE: Standard enhanced CT of the neck following intravenous administration of 100 cc of Isovue 300. Axial sections with coronal and sagittal reformats were obtained. FINDINGS: Brain: Visualized portions are grossly unremarkable. Orbits: Unremarkable Sinuses: Grossly unremarkable. Spaces of the neck: Clear and symmetric. Musculoskeletal: No acute osseous pathology. Mild degenerative changes throughout the cervical spine spine. Lymph nodes: Multiple nonenlarged lymph nodes are seen along both anterior chains of the neck. Vascular structures: Minimal atherosclerotic calcifications of the left carotid bifurcation. Thoracic Inlet/airway: Airway is patent. Scattered groundglass opacities are visualized in the upper lung examples include: 1Right upper lobe groundglass opacity measuring 9 mm as well as within the lef t upper lobe measuring 7 mm. Soft tissues/Thyroid: Thyroid and remainder of the soft tissues are unremarkable. IMPRESSION 1. No definite evidence for lymphadenopathy, abscess or significant abnormality. 2. Scattered ground glass opacities within the upper lungs attention on short-term follow-up imaging in 3-6 months to ensure resolution/stability.
== END | disposition home or self-care (01) ==
LOC: RADCTMAIN 06:53
PROVIDERS: ATTEND Family Medicine
DX: R91.8 Other nonspecific abnormal finding of lung field (principal); R51.9 Headache, unspecified; R42 Dizziness and giddiness; R59.0 Localized enlarged lymph nodes
CPT/HCPCS: 70450; 70490

== ENCOUNTER → 2022-04-14 | Outpatient (CLI) | payer OTHER ==
--- NOTE | 2022-04-14 19:06 | US ---
EXAMINATION TYPE: US kidneys/renal and bladder DATE OF EXAM: 04/14/2022 COMPARISON: MRI 01/14/2020 CLINICAL HISTORY: 62-year-old female R10.9 abd pel pain, Z87.442 Hx kidney stones. Pain. Hx kidney st ones, renal cyst. TECHNIQUE: Multiple sonographic images of the kidneys and bladder are obtained. FINDINGS: EXAM MEASUREMENTS: Right Kidney: 10.0 x 4.6 x 3.3 cm Left Kidney: 11.0 x 5.1 x 3.8 cm Right Kidney: Round hypoechoic lesion at the midpole measuring 2.0 cm. Round hypoechoic lesion lower pole measuring 1.5 cm. Either mild pelviectasis versus an extrarenal pelvis. No calyceal dilatation to suggest hydronephrosi s. Multiple hyperechoic foci seen, largest at upper pole: 1.2 x 1.0 x 0.5 cm. Left Kidney: Mild pelviectasis versus an extrarenal pelvis. No calyceal dilatation to suggest hydronephrosis. Tiny benign lower pole cortical cyst measuring 9 mm. Multiple echogenic foci, largest 2 measuring 8 mm each. Bladder: Appears anechoic. Bilateral Jets seen: Yes IMPRESSION: 1. Numerous bilateral renal calculi measuring up to 1.2 cm. 2. No evident hydronephrosis. 3. A couple indeterminate cortical lesions within the right kidney measuring 2.0 and 1.5 cm. These ar e round and hypoechoic, suspected cysts with internal echoes representing debris or artifact. Reasses s in 6 months.
== END | disposition home or self-care (01) ==
LOC: RADUSWWP 15:23
PROVIDERS: ATTEND Family Medicine
DX: N20.0 Calculus of kidney (principal)
CPT/HCPCS: 76770

== ENCOUNTER → 2022-05-13 | Outpatient (CLI) | payer OTHER ==
--- NOTE | 2022-05-13 16:27 | CT ---
EXAMINATION TYPE: CT abdomen pelvis wo con CT DLP: 495 mGycm, Automated exposure control for dose reduction was used. DATE OF EXAM: 05/13/2022 4:04 PM COMPARISON: Renal ultrasound 04/14/2022, CT abdomen pelvis 05/18/2019. CLINICAL INDICATION:Female, 62 years old with history of N20.0 kidney stone; Right flank pain TECHNIQUE: Standard CT of the abdomen and pelvis without IV or oral contrast. Lack of IV or oral co ntrast limits evaluation of solid and hollow organ viscera. Coronal and sagittal reformats were perfo rmed. FINDINGS: LOWER CHEST: Marginal increase in size of 6 mm right lower lobe pulmonary nodule (series 4, image 12) , previously 4 mm in 2019. Small pericardial effusion. ABDOMEN LIVER: Two stable hypoattenuating 2 cm lesions within the right hepatic lobe from 2019 and considered benign. GALLBLADDER AND BILE DUCTS: Unremarkable. PANCREAS: Unremarkable noncontrast appearance. SPLEEN: Unremarkable noncontrast appearance. ADRENAL GLANDS: Stable subcentimeter nodularity to the right adrenal gland. The left adrenal glands u nremarkable. KIDNEYS AND URETERS: No hydronephrosis. Multiple nonobstructive bilateral renal calculi redemonstrate d. Largest within the right superior pole measures up to 6 mm. Largest in the left inferior pole mauri ures up to 6 mm. No definitive ureteral calculi. Stable right renal cyst. PELVIS BLADDER: Incompletely distended but grossly unremarkable. REPRODUCTIVE: Unremarkable. ABDOMEN & PELVIS STOMACH AND BOWEL: Stomach and duodenum are unremarkable. No focal wall thickening or surrounding inf lammatory changes. Stool is present throughout the colon. No evidence of bowel obstruction. PERITONEUM: No evidence of pneumoperitoneum or free fluid. VASCULATURE: Mild atherosclerotic calcifications are present throughout the abdominal aorta and its b ranches. No evidence of aortic aneurysm. Multiple pelvic phleboliths. MUSCULOSKELETAL: No acute osseous abnormalities. Mild retrolisthesis of L1 on L2. Degenerative change s of the visualized spine most pronounced at L5-S1. No aggressive osseous lesions. LYMPH NODES: No gross evidence for lymphadenopathy. SOFT TISSUE/ABDOMINAL WALL: Small fat filled umbilical hernia. IMPRESSION: 1. No evidence for obstructive uropathy. 2. Multiple nonobstructive bilateral renal calculi redemonstrated. 3. Marginal increase in size of right lower lobe 6 mm pulmonary nodule. Follow-up CT chest examinatio n in 1 year is recommended.
== END | disposition home or self-care (01) ==
LOC: RADCTMAIN 15:46
PROVIDERS: ATTEND Urology
DX: N20.0 Calculus of kidney (principal); R91.1 Solitary pulmonary nodule
CPT/HCPCS: 74176

== ENCOUNTER → 2022-07-23 | Outpatient (CLI) | payer OTHER ==
--- NOTE | 2022-07-26 07:16 | MM ---
Reason for Exam: Screening (asymptomatic). Last screening mammogram was performed 12 month(s) ago. Patient History: Menarche at age 15. First Full-Term at age 30. Right ovary removed at age 39. Postmenopausal. Breast cancer, age 50. Other cancer. Patient used Hormonal Contraceptives for 1 year. 2011, Mastectomy on the Left side. 11/04/2010, Bilateral Malignant Excisional Biopsy. 11/04/2010, Bilateral Malignant Excisional Biopsy. Maternal cousin had breast cancer, age 40. Prior Study Comparison: 05/19/2017 Right Diagnostic Mammogram, [facility]. 10/10/2019 Right Diagnostic Mammogram, [facility]. 07/22/2021 Right Diagnostic Mammogram, [facility]. Tissue Density: Right: There are scattered fibroglandular densities. Findings: Analyzed By CAD. Single benign-appearing round calcification right breast. There is no suspicious group of microcalcifications or new suspicious mass in the right breast. Overall Assessment: Benign, BI-RAD 2 Management: Screening Mammogram of the right breast in 1 year. A clinical breast exam by your physician is recommended on an annual basis and results should be correlated with mammographic findings. Electronically signed and approved by: Juan Diego Pelaez M.D.
== END | disposition home or self-care (01) ==
LOC: RADMAMWWP 11:07
PROVIDERS: ATTEND Family Medicine
DX: Z12.31 Encounter for screening mammogram for malignant neoplasm of breast (principal); Z78.0 Asymptomatic menopausal state; Z80.3 Family history of malignant neoplasm of breast; Z90.721 Acquired absence of ovaries, unilateral
CPT/HCPCS: 77067

== ENCOUNTER 2023-10-14 04:44 | Inpatient (IN) | payer OTHER ==
[2023-10-14] MEDS: SODIUM CHLORIDE 0.9% 500 ML 500 ML IV SCH ×3 (05:04→05:48)
--- NOTE | 2023-10-14 05:24 | XR ---
EXAMINATION TYPE: XR chest 2V DATE OF EXAM: 10/14/2023 COMPARISON: Chest CT 2010 HISTORY: Fever TECHNIQUE: Frontal and lateral views of the chest are obtained. FINDINGS: There is increased opacity involving anterior-inferior right upper lobe. Left lung is pati r. No pleural effusion or pneumothorax seen. The cardiac silhouette size remains within normal limit s. The osseous structures are intact. IMPRESSION: Anterior-inferior right upper lung pneumonic infiltrate. Due to slightly masslike appear ance advised follow-up after treatment to exclude underlying mass or nodule.
[2023-10-14 05:25] LABS: ALT 26 U/L (4-34); AST 32 U/L (14-36); African American GFR (CKD) 60 (>60 ml/min/1.73 sqM); Albumin 4.1 g/dL (3.5-5.0); Alkaline Phosphatase 104 U/L (38-126); Anion Gap 11 mmol/L; Blood Urea Nitrogen 22 mg/dL (7-17); Calcium 9.8 mg/dL (8.4-10.2); Carbon Dioxide 23 mmol/L (22-30); Chloride 105 mmol/L (98-107); Glucose 151 mg/dL (74-99); Non-African American GFR(CKD) 52 (>60 ml/min/1.73 sqM); Potassium 3.8 mmol/L (3.5-5.1); Sodium 139 mmol/L (137-145); Total Bilirubin 0.5 mg/dL (0.2-1.3); Total Protein 6.9 g/dL (6.3-8.2)
[2023-10-14] MEDS ORDERED: AZITHROMYCIN 500 MG in SODIUM CHLORIDE 0.9% 250 ML IVPB STA (05:30)
[2023-10-14] MEDS ORDERED: cefTRIAXone IN SWFI 1,000 MG/10 ML SYRINGE IVP STA (05:30)
[2023-10-14 05:34] LABS: Prothrombin Time 10.6 sec (10.0-12.5)
[2023-10-14] MEDS ORDERED: RX INFO: IV CONTRAST WAS GIVEN 1 EACH MISC MISCELLANE PRN (05:35)
[2023-10-14] MEDS ORDERED: ONDANSETRON 4 MG/2 ML VIAL IVP STA (05:35)
[2023-10-14] MEDS ORDERED: PNEUMONIA PROTOCOL UTILIZED 1 EACH MISC PO PRN (05:51)
[2023-10-14] MEDS ORDERED: IPRATROPIUM-ALBUTEROL 3 ML NEB INHALATION PRN (05:51)
--- NOTE | 2023-10-14 06:03 | ED ---
General Adult HPI - General Chief complaint: Chest Pain Stated complaint: Chest Pain Time Seen by Provider: 10/14/23 04:56 Source: EMS Mode of arrival: EMS Limitations: no limitations - History of Present Illness Initial comments: Yvette is a 63-year-old female with a history of breast cancer. She is a former smoker had [id number] smoking history but quit smoking 6 months ago. Patient presents to the ER today for evaluation of pleuritic chest pain and a productive cough for 3 days. Patient reports that she started signing Dr. Stroud approximately 3 months ago and advised him that she has a chronic cough she had a chest x-ray at that time was told she had a pneumonia and was given antibiotics. She did improve for quite a while. Patient states that on Tuesday she thought she had influenza she had fever body aches and a nonproductive cough. However by Tuesday her cough became quite productive she is now coughing up thick green sputum she feels somewhat short of breath and has pain with inspiration. Patient was concerned that she is getting worse which prompted her to come to the ER for evaluation. - Related Data Home Medications Medication Instructions Recorded Confirmed Calcium Carbonate [Calcium] 600 mg PO DAILY 11/28/21 11/28/21 Cholecalciferol [Vitamin D3 (25 25 mcg PO DAILY 11/28/21 11/28/21 Mcg = 1000 Iu)] Tamsulosin [Flomax] 0.4 mg PO DAILY 11/28/21 11/28/21 Previous Rx's Medication Instructions Recorded Cyclobenzaprine [Flexeril] 5 mg PO TID PRN 3 Days #9 tablet 11/28/21 Ibuprofen [Motrin] 400 mg PO Q8HR PRN #30 tab 11/28/21 Lidocaine 5% Patch [Lidoderm 5% 1 patch TOPICAL DAILY PRN #7 patch 11/28/21 Patch] Allergies Allergy/AdvReac Type Severity Reaction Status Date / Time heparin (porcine) Allergy Swelling Verified 11/28/21 17:50 Review of Systems ROS Statement: Those systems with pertinent positive or pertinent negative responses have been documented in the HPI. ROS Other: All systems not noted in ROS Statement are negative. Past Medical History Past Medical History: Cancer, Eye Disorder, Renal Disease Additional Past Medical History / Comment(s): Left breast cancer 2009, kidney stones , skin cancer, glaucoma, Hepatitis C (treated years ago), and osteoporosis 2019. 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 History of Any Multi-Drug Resistant Organisms: None Reported Past Surgical History: Breast Surgery Additional Past Surgical History / Comment(s): Right salpingo-oophorectomy 2010(benign), lithotripsy, stents placed and removed for kidney stones. Colonoscopy 2014(next after 5yr per pt). Past Psychological History: No Psychological Hx Reported, Anxiety Past Alcohol Use History: None Reported Past Drug Use History: None Reported - Past Family History Father Family Medical History: Cancer Additional Family Medical History / Comment(s): Lung cancer. Maternal cousin Family Medical History: Cancer Additional Family Medical History / Comment(s): Breast cancer. General Exam - General Exam Comments Initial Comments: Physical Exam GENERAL: Chronically ill-appearing Appears dehydrated HENT: Normocephalic, Atraumatic. EYES: PERRL, EOMI PULMONARY: Tachypnea, decreased breath sounds on the right CARDIOVASCULAR: There is a regular rate and rhythm ABDOMEN: Soft and nontender with normal bowel sounds. SKIN: Skin is clear with no lesions or rashes and otherwise unremarkable. : Deferred NEUROLOGIC: Patient is alert and oriented x3. Moving all extremities spontaneously MUSCULOSKELETAL: Normal extremities with adequate strength and full range of motion. No lower extremity swelling or edema. No calf tenderness. PSYCHIATRIC: Normal psychiatric evaluation. Limitations: no limitations Course Vital Signs 10/14/23 10/14/23 10/14/23 04:49 05:04 05:40 Temperature 98.9 F Pulse Rate 64 75 71 Respiratory 18 18 18 Rate Blood Pressure 137/103 98/79 95/80 O2 Sat by Pulse 93 L 95 96 Oximetry 10/14/23 06:05 Temperature Pulse Rate 80 Respiratory 18 Rate Blood Pressure 130/80 O2 Sat by Pulse 95 Oximetry EKG Findings - EKG Comments: EKG Findings:: EKG was obtained due to complaint of chest pain, EKG was obtained at 4:52 AM, rate is 68 rhythm is sinus normal axis, normal intervals, [place] 135, QRS 87, QTc 345 there are no acute ST elevations or depressions there is no evidence of ischemia or infarction. Procedures - Sepsis Sepsis Focused Exam #1 Sepsis Focused Exam Date: 10/14/23 Sepsis Focused Exam Time: 06:22 Sepsis Focused Exam Complete: Yes Vital Signs & RN Notes Reviewed: Yes Capillary Refill: < 2 Seconds: Fingers, Toes Peripheral Pulses: Normal: Radial (R), Radial (L) Skin Color: Normal for Patient Respiratory Exam: decreased breath sounds (RIGHT) Cardiovascular Exam: regular rate, normal rhythm Medical Decision Making - Medical Decision Making Was pt. sent in by a medical professional or institution (, SANIA, TEACHER OF THE HEARING IMPAIRED, urgent ca re, hospital, or usp...) When possible be specific @ -No Did you speak to anyone other than the patient for history (EMS, parent, family, police, friend...)? What history was obtained from this source @ -EMS Did you review nursing and triage notes (agree or disagree)? Why? @ -I reviewed and agree with nursing and triage notes Were old charts reviewed (outside hosp., previous admission, EMS record, old EKG, old radiological studies, urgent care reports/EKG's, usp records)? Report findings @ -Previous records were reviewed Differential Diagnosis (chest pain, altered mental status, abdominal pain women, abdominal pain men, vaginal bleeding, weakness, fever, dyspnea, syncope, headache, dizziness, GI bleed, back pain, seizure, CVA, palpatations, mental health)? @ -Differential Dyspnea: Coronary syndrome, arrhythmia, tamponade, asthma, COPD, pulmonary embolism, pneu monia, pneumothorax, pulmonary effusion, anaphylaxis, diabetic ketoacidosis, flailed chest, pulmonary contusion, diaphragmatic rupture, anemia, neuromuscular, this is not meant to be an all-inclusive list. EKG interpreted by me (3pts min.). @ -As above X-rays interpreted by me (1pt min.). @ -Right middle lobe consolidation CT interpreted by me (1pt min.). @ -CT chest with right middle lobe consolidation U/S interpreted by me (1pt. min.). @ -None done What testing was considered but not performed or refused? (CT, X-rays, U/S, labs)? Why? @ -None What meds were considered but not given or refused? Why? @ -None Did you discuss the management of the patient with other professionals (prof joseph i.e. SANIA Mohamud, TEACHER OF THE HEARING IMPAIRED, lab, RT, psych nurse, forensic social worker, laborer plumbing, teacher, tourist information officer, casework specialist)? Give summary @ -No Was smoking cessation discussed for >3mins.? @ -No Was critical care preformed (if so, how long)? @ -No Were there social determinants of health that impacted care today? How? (Homelessness, low income, unemployed, alcoholism, drug addiction, transportation, low edu. Level, literacy, decrease access to med. care, [facility], rehab)? @ -No Was there de-escalation of care discussed even if they declined (Discuss DNR or withdrawal of care, Hospice)? DNR status @ -No What co-morbidities impacted this encounter? (DM, HTN, Smoking, COPD, CAD, Cancer, CVA, ARF, Chemo, Hep., AIDS, mental health diagnosis, sleep apnea, morbid obesity)? @ -Previous breast cancer, COPD Was patient admitted / discharged? Hospital course, mention meds given and route, prescriptions, significant lab abnormalities, going to OR and other pertinent info. @ -Admit The patient was seen and evaluated, history is obtained from the patient. 63-year-old former smoker with persistent cough for 1 week now productive, patient is febrile. Septic workup was initiated chest x-ray concerning for right middle lobe consolidation. 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 This plan was discussed with Dr. Stroud who agrees with plan for admission. CT of the chest was ordered upon admission to rule out any underlying mass or abscess as the patient has apparently had a right-sided pneumonia on x-ray in office 3 months ago. Undiagnosed new problem with uncertain prognosis? @ -No Drug Therapy requiring intensive monitoring for toxicity (Heparin, Nitro, Insulin, Cardizem)? @ -No Were any procedures done? @ -No Diagnosis/symptom? @ -Right middle lobe pneumonia Acute, or Chronic, or Acute on Chronic? @ -Acute Uncomplicated (without systemic symptoms) or Complicated (systemic symptoms)? @ -Complicated Side effects of treatment? @ -No Exacerbation, Progression, or Severe Exacerbation? @ -No Poses a threat to life or bodily function? How? (Chest pain, [place], [place], pneumonia, PE, COPD, DKA, ARF, appy, cholecystitis, CVA, Diverticulitis, Homicidal, Suicidal, threat to staff... and all critical care pts) @ -Yes, can advance to sepsis, septic shock and respiratory failure Diagnosis/symptom? @ -Sepsis Acute, or Chronic, or Acute on Chronic? @ -Acute Uncomplicated (without systemic symptoms) or Complicated (systemic symptoms)? @ -Complicated Side effects of treatment? @ -None Exacerbation, Progression, or Severe Exacerbation] @ -No Poses a threat to life or bodily function? @ -Yes can advance to septic shock and - Lab Data Result diagrams: 10/14/23 05:01 Lab Results 10/14/23 10/14/23 10/14/23 Range/Units 05:01 05:01 05:01 Sodium 139 (137-145) mmol/L Potassium 3.8 (3.5-5.1) mmol/L Chloride 105 (98-107) mmol/L Carbon Dioxide 23 (22-30) mmol/L Anion Gap 11 mmol/L BUN 22 H (7-17) mg/dL Creatinine 1.13 H (0.52-1.04) mg/dL Est GFR (CKD-EPI)AfAm 60 (>60 ml/min/1.73 sqM) Est GFR (CKD-EPI)NonAf 52 (>60 ml/min/1.73 sqM) Glucose 151 H (74-99) mg/dL Plasma Lactic Acid Travon 1.2 (0.7-2.0) mmol/L Calcium 9.8 (8.4-10.2) mg/dL Total Bilirubin 0.5 (0.2-1.3) mg/dL AST 32 (14-36) U/L ALT 26 (4-34) U/L Alkaline Phosphatase 104 (38-126) U/L Total Protein 6.9 (6.3-8.2) g/dL Albumin 4.1 (3.5-5.0) g/dL Influenza Type A (PCR) Not Detected (Not Detectd) Influenza Type B (PCR) Not Detected (Not Detectd) RSV (PCR) Not Detected (Not Detectd) SARS-CoV-2 (PCR) Not Detected (Not Detectd) Disposition Clinical Impression: CAP (community acquired pneumonia), Lung nodule seen on imaging study Disposition: ADMITTED IP TO [facility] Condition: Serious Is patient prescribed a controlled substance at d/c from ED?: No
--- NOTE | 2023-10-14 06:13 | CT ---
EXAMINATION TYPE: CT chest w con DATE OF EXAM: 10/14/2023 COMPARISON: Chest x-ray earlier today. CT abdomen and pelvis May 13, 2022 HISTORY: Pt. states she has been sick recently with possible flu. Pt. c/o chest discomfort from incre ased coughing- states pain feels muscular. Pt. reports increased coughing with sputum- green/yellow i n color, nausea with vomiting. Symptoms have been present x1 week. H/O LT breast CA, renal disease, s kin cancer, hepatitis C, breast surgery CT DLP: 203.2 mGycm. Automated Exposure Control for Dose Reduction was Utilized. TECHNIQUE: CT scan of the thorax is performed following with IV Contrast, patient injected with 80 m L of Isovue 300. FINDINGS: LUNGS: There are multifocal groundglass opacities in the right upper lobe with additional areas of tr iangular shaped consolidation anterior inferior right upper lobe that has air bronchograms measuring approximately 7.7 x 5.8 cm axial image 31. Some additional patchy groundglass opacities throughout th e right middle lobe are present. There is 8 x 5 mm right lower lobe nodule or less likely nodular con solidation axial image 47. This is larger from prior study. There is 3 mm posterior left basilar nodu le axial image 56. No pleural effusion or pneumothorax seen bilaterally. MEDIASTINUM: A few prominent lymph nodes in the right hilar region in the peritracheal lung with righ t tracheobronchial region are identified. There is small to moderate sized pericardial effusion measu ring up to 2.3 cm in thickness axial image 38. This is similar to most recent prior. No cardiomegaly is seen. OTHER:. There is 1.8 cm hypodense lesion in the right hepatic dome with peripheral nodular enhancemen t. There is additional 2.8 cm low dense lesion axial Image 64. Correlate with old CT abdomen and pelv is studies. Multiple small bilateral renal calculi are redemonstrated. Persistent disc space narrowin g with endplate sclerosis at the right L2-L3 level. IMPRESSION: 1. Multifocal acute infectious process is suspected as detailed above. Most dense focal consolidation with air bronchograms anterior-inferior right upper lobe is noted. Active thoracic adenopathy is see n. 2. Slowly Enlarging 8 x 5 mm right lower lobe pulmonary nodule. Follow-up advised as per Fleischner S ociety recommendations.
[2023-10-14 06:27] LABS: Basophils # (A) 0.1 k/uL (0-0.2); Basophils % (A) 1 %; Eosinophils # (A) 0.2 k/uL (0-0.7); Eosinophils % (A) 2 %; HCT 43.4 % (34.0-46.0); Lymphocytes # (A) 1.6 k/uL (1.0-4.8); Lymphocytes % (A) 16 %; MCH 31.4 pg (25.0-35.0); MCHC 34.5 g/dL (31.0-37.0); Mean Platelet Volume 10.6; Monocytes % (A) 10 %; Neutrophils % (A) 71 %; Platelet Count 208 k/uL (150-450); RBC 4.77 m/uL (3.80-5.40); RDW 12.8 % (11.5-15.5)
[2023-10-14 06:39] LABS: Partial Thromboplastin Time 18.1 sec (22.0-30.0)
[2023-10-14] MEDS: LACTATED RINGERS 1,000 ML IV SCH ×2 (08:50→20:05)
--- NOTE | 2023-10-14 11:56 | P.CNPUL ---
History of Present Illness Consult date: 10/14/23 Requesting physician: Edison Stroud Reason for consult: dyspnea, COPD Chief complaint: Nausea, vomiting, shortness of breath History of present illness: This is a very pleasant 63-year-old female patient with a known history of chronic and ongoing tobacco dependence of 50 years, stating she quit 6 months ago and suspected chronic obstructive pulmonary disease. She has a 5-day history of increasing shortness of breath cough congestion green productive sputum nausea vomiting flulike symptoms. She was not feeling much better and presented here to the emergency room early this morning for the same. X-ray revealed anteriorinferior right upper lung pneumonic infiltrate. Slightly ma sslike appearance. CT scan of the chest revealed multifocal acute infectious process with most dense focal consolidation with air bronchograms in the anterior inferior right upper lobe. Active thoracic adenopathy is seen. Slowly enlarging 8 x 5 mm right lower lobe pulmonary nodule. White count 10.0. Hemoglobin 15.0. Platelets 208. Sodium 139. Potassium 3.8. Bicarb 23. BUN 22. Creatinine 1.13. Glucose 151. Influenza, RSV and COVID-19 screens negative. She is seen today in consultation on the regular medical floor. She is apparently laying fairly comfortably in bed. She is still nauseated. She still has a loose productive cough. She has been initiated on ceftriaxone and azithromycin. She is maintaining good O2 saturations in the 90s on room air. No IV fluids. Review of Systems REVIEW OF SYSTEMS: CONSTITUTIONAL: Denies any recent significant weight loss or weight gain. EYES: Denies change in vision. EARS, NOSE, MOUTH, THROAT: Denies headaches, denies sore throat. CARDIOVASCULAR: Denies chest pain, palpitations or syncopal episodes. RESPIRATORY: Positive for shortness of breath, cough, congestion no hemoptysis. GASTROINTESTINAL: Positive for nausea, vomiting, abdominal pain GENITOURINARY: Denies hematuria, denies infections. MUSKULOSKELETAL: Denies pain, denies swelling. INTEGUMENTARY: Denies rash, denies eczema. NEUROLOGICAL: Denies recent memory loss, no recent seizure activity. PSYCHIATRIC: Denies anxiety, denies depression. HEMATOLOGIC/LYMPHATIC: Denies anemia, denies enlarged lymph nodes. Past Medical History Past Medical History: Cancer, Eye Disorder, Renal Disease Additional Past Medical History / Comment(s): Left breast cancer 2009, kidney stones , skin cancer, glaucoma, Hepatitis C (treated years ago), and osteoporosis 2018. 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 History of Any Multi-Drug Resistant Organisms: None Reported Past Surgical History: Breast Surgery Additional Past Surgical History / Comment(s): Right salpingo-oophorectomy 2009(benign), lithotripsy, stents placed and removed for kidney stones. Colonoscopy 2014(next after 5yr per pt). Past Psychological History: No Psychological Hx Reported, Anxiety Smoking Status: Former smoker Past Alcohol Use History: None Reported Additional Past Alcohol Use History / Comment(s): Quit smoking in 2019. [facility]. Past Drug Use History: None Reported - Past Family History Father Family Medical History: Cancer Additional Family Medical History / Comment(s): Lung cancer. Maternal cousin Family Medical History: Cancer Additional Family Medical History / Comment(s): Breast cancer. Medications and Allergies Home Medications Medication Instructions Recorded Confirmed Type Budesonide-Formot 160-4.5 Mcg 2 puff INHALATION RT-BID 10/14/23 10/14/23 History [Symbicort 160-4.5 Mcg Inhaler] Allergies Allergy/AdvReac Type Severity Reaction Status Date / Time heparin (porcine) Allergy Swelling Verified 10/14/23 07:12 Physical Exam Vitals: Vital Signs Temp Pulse Pulse Resp BP BP Pulse Ox 10/14/23 08:30 98.4 F 87 16 117/66 93 L 10/14/23 07:00 80 18 129/93 94 L 10/14/23 06:05 80 18 130/80 95 10/14/23 05:40 71 18 95/80 96 10/14/23 05:04 75 18 98/79 95 10/14/23 04:49 98.9 F 64 18 137/103 93 L Intake and Output 10/13/23 10/14/23 10/14/23 22:59 06:59 14:59 Other: Weight 46.72 kg 46.72 kg GENERAL EXAM: Alert, pleasant 63-year-old female, edentulous, on room air, fairly comfortable in no apparent distress. HEAD: Normocephalic. EYES: Normal reaction of pupils, equal size. NOSE: Clear with pink turbinates. THROAT: No erythema or exudates. NECK: No masses, no JVD. CHEST: No chest wall deformity. LUNGS: Equal air entry with scattered rhonchi more so on the right lung. CVS: S1 and S2 normal with no audible murmur, regular rhythm. ABDOMEN: No hepatosplenomegaly, normal bowel sounds, no guarding or rigidity. SPINE: No scoliosis or deformity SKIN: No rashes CENTRAL NERVOUS SYSTEM: No focal deficits, tone is normal in all 4 extremities. EXTREMITIES: There is no peripheral edema. No clubbing, no cyanosis. Peripheral pulses are intact. Results - Laboratory Findings CBC and BMP: 10/14/23 05:01 10/14/23 05:01 PT/INR, D-dimer PT 10.6 sec (10.0-12.5) 10/14/23 05:01 INR 1.0 (<1.2) 10/14/23 05:01 Abnormal lab findings: Abnormal Labs 10/14/23 10/14/23 05:01 05:01 APTT 18.1 L BUN 22 H Creatinine 1.13 H Glucose 151 H - Diagnostic Findings Chest x-ray: image reviewed CT scan - chest: image reviewed Assessment and Plan Assessment: Acute hypoxemic respiratory failure secondary to an acute community-acquired pneumonia. Dense focal consolidation with air bronchograms in the anteriorinferior right upper lobe. Active thoracic adenopathy seen Right lower lobe pulmonary nodule slowly enlarging measuring 8 x 5 mm. Will require follow-up in the outpatient setting Acute exacerbation of chronic obstructive pulmonary disease secondary to above Chronic and ongoing tobacco dependence of greater than 50 years, quit 6 months ago Plan: The patient was seen and evaluated CT scan of the chest, chest x-ray, labs and medications reviewed Add lactated Ringer's at 100 MLS per hour Add DuoNeb inhalations as needed Continue ceftriaxone and Rocephin Will need outpatient follow-up including PFTs and follow-up CT scans of the chest We will continue to follow and make further recommendations based on her clinical status I have personally seen and examined the patient, performed the documentation and the assessment and plan as written. Number of minutes spent on the visit: 20.
[2023-10-14 15:07] VITALS: BMI 18.2
--- NOTE | 2023-10-14 19:46 | HP ---
HISTORY AND PHYSICAL CHIEF COMPLAINT: Shortness of breath and right-sided chest pain. HISTORY OF PRESENT ILLNESS: This is another admission for this 63-year-old white female with a history of COPD. She also has a right upper lobe atelectasis and suspected mass. She presented to the emergency room with chest pain and shortness of breath. She has had no hemoptysis, fever, chills, etc. REVIEW OF SYSTEMS: Otherwise unremarkable. She has had a fairly good appetite. Past medical history, family history, and personal and social histories are all otherwise unremarkable and noncontributory except that she is allergic to statins, Repatha, and Ultram. CURRENT MEDICATIONS: 1. Singulair. 2. Symbicort. 3. Albuterol. 4. Ibuprofen. She has had a history of breast cancer and she no longer smokes. PHYSICAL EXAMINATION: VITAL SIGNS: She is afebrile. Blood pressure is 118/74 with a pulse 78. GENERAL: She appeared to be pale, slight, and chronically ill. HEAD, EARS, EYES, NOSE, MOUTH AND THROAT: Normal. CHEST: Demonstrated decreased breath sounds due to her emphysema. There are scattered rales and rhonchi. CARDIAC: Demonstrated tachycardia. ABDOMEN: Soft, nontender. EXTREMITIES: Normal. NEUROLOGIC: She is intact. ASSESSMENT: She is admitted to the hospital with diagnoses of: 1. Chest pain. 2. Chronic obstructive pulmonary disease. 3. Right upper lobe pneumonitis. 4. Probable right upper lobe neoplasm. PLAN: 1. Bedrest. 2. IV fluids. 3. Antibiotics. 4. Updrafts. 5. Repeat CT of the chest. MMODL / IJN: [id number] /
[2023-10-14] MEDS: ACETAMINOPHEN TAB 325 MG TAB PO PRN (20:04)
[2023-10-15] MEDS: LACTATED RINGERS 1,000 ML IV SCH ×2 (02:41→16:18)
--- NOTE | 2023-10-15 10:14 | P.PN ---
Subjective Progress Note Date: 10/15/23 This is a very pleasant 63-year-old female patient with a known history of chronic and ongoing tobacco dependence of 50 years, stating she quit 6 months ago and suspected chronic obstructive pulmonary disease. She has a 5-day history of increasing shortness of breath cough congestion green productive spu latha nausea vomiting flulike symptoms. She was not feeling much better and presented here to the emergency room early this morning for the same. X-ray revealed anteriorinferior right upper lung pneumonic infiltrate. Slightly masslike appearance. CT scan of the chest revealed multifocal acute infectious process with most dense focal consolidation with air bronchograms in the anterior inferior right upper lobe. Active thoracic adenopathy is seen. Slowly enlarging 8 x 5 mm right lower lobe pulmonary nodule. White count 10.0. Hemoglobin 15.0. Platelets 208. Sodium 139. Potassium 3.8. Bicarb 23. BUN 22. Creatinine 1.13. Glucose 151. Influenza, RSV and COVID-19 screens negative. She is seen today in consultation on the regular medical floor. She is apparently laying fairly comfortably in bed. She is still nauseated. She still has a loose productive cough. She has been initiated on ceftriaxone and azithromycin. She is maintaining good O2 saturations in the 90s on room air. No IV fluids. The patient is seen today October 15, 2023 in follow-up on the regular medical floor. She is currently resting comfortably in bed. Awake and alert in no acute distress. She is maintaining good O2 saturations in the 90s on room air. Her procalcitonin was 3.63. She is continued on azithromycin and ceftriaxone. She has lactated Ringer's at 100 MLS per hour. She has a loose productive cough. Sputum cultures pending. No new labs today. Objective - Vital Signs Vital signs: Vital Signs Temp 98.3 F 10/15/23 07:00 Pulse 64 10/15/23 07:00 Resp 16 10/15/23 07:00 BP 116/64 10/15/23 07:00 Pulse Ox 96 10/15/23 10:04 FiO2 Intake & Output 10/14/23 10/15/23 10/15/23 18:59 06:59 18:59 Intake Total 222 Balance 222 Weight 46.72 kg Intake: Oral 222 Other: # Voids 1 - Exam GENERAL EXAM: Alert, pleasant 63-year-old female, on room air, comfortable in no apparent distress. HEAD: Normocephalic. EYES: Normal reaction of pupils, equal size. NOSE: Clear with pink turbinates. THROAT: No erythema or exudates. NECK: No masses, no JVD. CHEST: No chest wall deformity. LUNGS: Equal air entry with bilateral scattered rhonchi. CVS: S1 and S2 normal with no audible murmur, regular rhythm. ABDOMEN: No hepatosplenomegaly, normal bowel sounds, no guarding or rigidity. SPINE: No scoliosis or deformity SKIN: No rashes CENTRAL NERVOUS SYSTEM: No focal deficits, tone is normal in all 4 extremities. EXTREMITIES: There is no peripheral edema. No clubbing, no cyanosis. Peripheral pulses are intact. - Labs CBC & Chem 7: 10/14/23 05:01 10/14/23 05:01 Labs: Abnormal Lab Results - Last 24 Hours (Table) 10/14/23 Range/Units 05:01 Procalcitonin 3.63 H (0.02-0.09) ng/mL Assessment and Plan Assessment: Acute hypoxemic respiratory failure secondary to an acute community-acquired pneumonia. Procalcitonin 3.63. Dense focal consolidation with air bronchograms in the anteriorinferior right upper lobe. Active thoracic adenopathy seen Right lower lobe pulmonary nodule slowly enlarging measuring 8 x 5 mm. Will require follow-up in the outpatient setting Acute exacerbation of chronic obstructive pulmonary disease secondary to above Chronic and ongoing tobacco dependence of greater than 50 years, quit 6 months ago Plan: The patient was seen and evaluated Medications reviewed Continue the current treatment plan Follow-up chest x-ray in a.m. We will continue to follow I have personally seen and examined the patient, performed the documentation and the assessment and plan as written. Number of minutes spent on the visit: 10.
[2023-10-15] MEDS ORDERED: guaiFENesin-DM 100-10MG/5ML 10 ML CUP PO PRN (10:43)
[2023-10-15] MEDS: AZITHROMYCIN 500 MG in SODIUM CHLORIDE 0.9% 250 ML IVPB SCH (11:28)
[2023-10-15] MEDS: HYDROCORTISONE 1% CREAM 454 GM JAR TOPICAL SCH ×3 (11:28→20:06)
--- NOTE | 2023-10-15 12:46 | P.CONS ---
History of Present Illness - Reason for Consult Consult date: 10/15/23 lung nodule Requesting physician: Edison Stroud - Chief Complaint SOB - History of Present Illness Ms. Small is a very pleasant 63 yo female with long standing history of smoking who is here for increased SOB and productive cough for the past 5 days. Work up [facility] CXR and CT lung showed RUL opacity consistent for pneumonia. Labs including CBC/CMP with normal CBC, WBC 10, Cr 1.13, and procalcitonin elevation. COVID/flu/RSV negative. CT also with slightly increased RLL nodule at 8x5mm now [place] 6mm [place] [address] AP, 4mm in 2019 [address] AP, and not mentioned on report of CT AP from 2013. No prior CT chest on file. we were consulted for further evaluation of her growing lung nodule. Patient has been doing relatively well up until about a week ago when she started having nausea, vomiting, fevers, and productive cough. She eventually presented to the hospital for worsening shortness of breath in addition to her symptoms. Feeling slightly better on antibiotics however continues to have vomiting. Admits to significant weight loss, 1020 pounds over the last week. Prior to a week ago she has felt well without any specific complaints. No prior episodes of pneumonia. No prior CTs of the chest. She does have a history of left-sided breast cancer status post lumpectomy with lymph node resection in . States she did not receive chemotherapy or radiation. She is not following with oncology at this time however had her surgery at [facility] and was following there for a few years after her surgery. No current smoking. She does have a history of smoking for 50 years, quit about 6 months ago. She says that she is due for her mammogram and Pap smear however she is up-to-date on her colonoscopy which was negative. She was getting her mammograms regularly. Denies any routine breast exams. She does have a significant family history of malignancy however she does not know the types of malignancies. Her father, paternal grandfather, and paternal grandmother had some type of cancer that spread to the bones. She also has cousins that she thinks have cancer. She does not know the details of these malignancies however. Past Medical History Past Medical History: Cancer, Eye Disorder, Renal Disease Additional Past Medical History / Comment(s): Left breast cancer 2009, kidney stones , skin cancer, glaucoma, Hepatitis C (treated years ago), and oste oporosis 2018. PAST [employer] HISTORY: She has no history of STDs. History of Any Multi-Drug Resistant Organisms: None Reported Past Surgical History: Breast Surgery Additional Past Surgical History / Comment(s): Right salpingo-oophorectomy 2010(benign), lithotripsy, stents placed and removed for kidney stones. Colonoscopy 2014(next after 5yr per pt). Past Psychological History: No Psychological Hx Reported, Anxiety Smoking Status: Former smoker Past Alcohol Use History: None Reported Additional Past Alcohol Use History / Comment(s): Quit smoking in 2019. Previous heavy alcohol use as a teenager. Past Drug Use History: None Reported - Past Family History Father Family Medical History: Cancer Additional Family Medical History / Comment(s): Lung cancer. Maternal cousin Family Medical History: Cancer Additional Family Medical History / Comment(s): Breast cancer. Medications and Allergies Home Medications Medication Instructions Recorded Confirmed Type Budesonide-Formot 160-4.5 Mcg 2 puff INHALATION RT-BID 10/14/23 10/14/23 History [Symbicort 160-4.5 Mcg Inhaler] Allergies Allergy/AdvReac Type Severity Reaction Status Date / Time heparin (porcine) Allergy Swelling Verified 10/14/23 07:12 Physical Exam Vitals: Vital Signs Temp Pulse Resp BP Pulse Ox 10/15/23 10:04 96 10/15/23 07:00 98.3 F 64 16 116/64 92 L 10/15/23 05:51 96 10/15/23 02:00 98.5 F 77 16 111/64 94 L 10/14/23 19:50 99.8 F H 87 16 112/72 93 L 10/14/23 15:00 99.6 F 96 16 106/63 93 L Patient appears to be in no acute distress. No jaundice. No respiratory distress. She does seem a little nauseous however and was sitting up on the side of the bed with her trash can next to her. She did appear more comfortable after our discussion. Results CBC & Chem 7: 10/14/23 05:01 10/14/23 05:01 Labs: Abnormal Lab Results - Last 24 Hours (Table) 10/14/23 Range/Units 05:01 Procalcitonin 3.63 H (0.02-0.09) ng/mL Chest x-ray: report reviewed CT scan - chest: report reviewed Assessment and Plan Assessment: Pneumonia COPD exacerbation Lung nodule, growing Plan: Ms. Small is a very pleasant 63 yo female with long standing history of smoking who is here for increased SOB and productive cough for the past 5 days. Work up [facility] CXR and CT lung showed RUL opacity consistent for pneumonia and slightly increased lung nodule. - History of breast cancer, treated in at [facility], per patient with surgery alone in no chemotherapy or radiation; will need to obtain records of this - Increasing lung nodule, need to rule out early stage malignancy - Recommend PET scan OP after pt's acute illness resolves, in 1 month, to assess nodule activity - Pulmonary evaluation, biopsy if active on PET - Counseled on smoking cessation and praised on stopping 6 months ago, encouraged to continue to abstain from this - Encouraged her to proceed with her screening mammogram and Pap smear that are due - Doubt that her acute illness for the past week including her weight loss is related to malignancy however more likely to be related to pneumonia and infection Discussed with pt and she is agreeable. All questions answered.
--- NOTE | 2023-10-15 19:34 | PN ---
PROGRESS NOTE DATE OF SERVICE: 10/15/2023 CHIEF COMPLAINT: Pneumonitis and possible right upper lobe neoplasm. HISTORY OF PRESENT ILLNESS: This lady is doing fairly well, but she has had a lot of difficulty with coughing. She has had no hemoptysis, fever, chills, etc. PHYSICAL EXAMINATION: CHEST: Fairly clear with decreased breath sounds in the right upper lobe anteriorly and posteriorly. She is pale. CARDIAC: Normal. ABDOMEN: Soft. Nontender. IMPRESSION: 1. Right upper lobe pneumonitis. 2. Possible right upper lobe neoplasm. 3. Left lower lobe lung mass. 4. Chronic obstructive pulmonary disease. PLAN: 1. Consult with Oncology. 2. Cough syrup or cough suppressants. 3. Hydrocortisone cream for her rash. MMODL / IJN: [id number] /
[2023-10-15] MEDS: SYMBICORT 160-4.5 MCG INHALER INHALATION SCH (20:17)
[2023-10-16] MEDS: LACTATED RINGERS 1,000 ML IV SCH ×3 (00:49→20:20)
--- NOTE | 2023-10-16 07:55 | XR ---
EXAMINATION TYPE: XR chest 1V portable DATE OF EXAM: 10/16/2023 HISTORY: Shortness of breath. COMPARISON: October 14, 2023 TECHNIQUE: Single view of the chest is submitted. FINDINGS: Demonstrated are scattered senescent parenchymal change. Slight progression of infiltrate right midlung zone with air bronchograms seen. The heart is stable. Hilar and mediastinal structures are within normal limits. Degenerative changes are seen of the dorsal spine. IMPRESSION: 1. Slight progression of infiltrate right midlung zone with air bronchograms seen.
--- NOTE | 2023-10-16 08:21 | P.PN ---
Subjective Progress Note Date: 10/16/23 Principal diagnosis: Shortness of breath. This is a very pleasant 63-year-old female patient with a known history of chronic and ongoing tobacco dependence of 50 years, stating she quit 6 months ago and suspected chronic obstructive pulmonary disease. She has a 5-day history of increasing shortness of breath cough congestion green productive sputum nausea vomiting flulike symptoms. She was not feeling much better and presented here to the emergency room early this morning for the same. X-ray revealed anteriorinferior right upper lung pneumonic infiltrate. Slightly mas slike appearance. CT scan of the chest revealed multifocal acute infectious process with most dense focal consolidation with air bronchograms in the anterior inferior right upper lobe. Active thoracic adenopathy is seen. Slowly enlarging 8 x 5 mm right lower lobe pulmonary nodule. White count 10.0. Hemoglobin 15.0. Platelets 208. Sodium 139. Potassium 3.8. Bicarb 23. BUN 22. Creatinine 1.13. Glucose 151. Influenza, RSV and COVID-19 screens negative. She is seen today in consultation on the regular medical floor. She is apparently laying fairly comfortably in bed. She is still nauseated. She still has a loose productive cough. She has been initiated on ceftriaxone and azithromycin. She is maintaining good O2 saturations in the 90s on room air. No IV fluids. The patient is seen today October 15, 2023 in follow-up on the regular medical floor. She is currently resting comfortably in bed. Awake and alert in no acute distress. She is maintaining good O2 saturations in the 90s on room air. Her procalcitonin was 3.63. She is continued on azithromycin and ceftriaxone. She has lactated Ringer's at 100 MLS per hour. She has a loose productive cough. Sputum cultures pending. No new labs today. Progress note dated October 16, 2023. The patient is seen today in room 616. The patient feels like she is improved. She is currently on room air. She is getting lactated Ringer's at 100 cc an hour. Thus far, all culture data is negative. Her chest x-ray is the same or slightly worse. I did mention to her that sometimes her chest x-ray will lag behind the clinical improvement of the patient. The patient continues on antibiotics. I did mention to the patient, that she will need to follow-up with me in the office, for a follow-up chest x-ray, and pulmonary function testing. She has never seen a lung doctor before. No new labs today. Chest x-ray from today is reviewed. Objective - Vital Signs Vital signs: Vital Signs Temp 98.6 F 10/16/23 07:00 Pulse 57 L 10/16/23 07:00 Resp 15 10/16/23 07:00 BP 117/69 10/16/23 07:00 Pulse Ox 93 L 10/16/23 07:00 FiO2 Intake & Output 10/15/23 10/16/23 10/16/23 18:59 06:59 18:59 Other: # Voids 2 1 # Bowel Movements 0 - Exam No acute distress, oriented 3. Currently on room air. HEENT examination is grossly unremarkable. Mucous membranes are moist. No oral lesions. Neck supple. Full range of motion. No adenopathy thyromegaly or neck vein distention. Cardiovascular examination reveals regular rhythm rate. S1-S2 normal. No S3 or S4. No discernible murmur noted. Heart rate 57 bpm. Lungs reveal scattered bilateral rhonchi, right greater than left. No wheezes or crackles. Breath sounds equal. Room air saturation is 93%. Abdomen soft bowel sounds are heard. No masses or tenderness. Extremities are intact. No cyanosis clubbing or edema. Skin is without rash or lesion. Neurologic examination is brief but nonfocal. - Labs CBC & Chem 7: 10/14/23 05:01 10/14/23 05:01 Labs: Microbiology - Last 24 Hours (Table) 10/15/23 09:33 Gram Stain - Preliminary Sputum 10/14/23 05:01 Blood Culture - Preliminary Blood 10/14/23 04:40 Blood Culture - Preliminary Blood Assessment and Plan Assessment: Acute hypoxemic respiratory failure secondary to an acute community-acquired pneumonia. Procalcitonin 3.63. Dense focal consolidation with air bronchograms in the anteriorinferior right upper lobe. Right lower lobe pulmonary nodule slowly enlarging measuring 8 x 5 mm. Acute exacerbation of chronic obstructive pulmonary disease secondary to above. Chronic and ongoing tobacco dependence of greater than 50 years, quit 6 months ago. Plan: Plan dated October 16, 2023. The patient will require at least another day here in the hospital. After hospitalization, the patient will follow-up in the office, for a follow-up chest x-ray, and pulmonary function testing. The patient's chest x-ray, today, is a bit worse, but I did mention to the patient, that sometimes the x-ray will lag behind the clinical improvement of the patient. The patient quit smoking 6 months ago. Labs, x-rays, and medications are reviewed. She is on appropriate medications. Will continue to follow make recommendations along the way. Prognosis is guarded. Time with Patient: Less than 30
[2023-10-16] MEDS: HYDROCORTISONE 1% CREAM 454 GM JAR TOPICAL SCH ×4 (09:21→20:21)
[2023-10-16] MEDS: ACETAMINOPHEN TAB 325 MG TAB PO PRN (09:59)
[2023-10-16] MEDS: AZITHROMYCIN 500 MG in SODIUM CHLORIDE 0.9% 250 ML IVPB SCH (10:00)
[2023-10-16] MEDS: SYMBICORT 160-4.5 MCG INHALER INHALATION SCH ×2 (10:03→20:37)
--- NOTE | 2023-10-16 22:55 | PN ---
PROGRESS NOTE DATE OF SERVICE: 10/16/2023 CHIEF COMPLAINT: Right upper lobe pneumonitis. HISTORY OF PRESENT ILLNESS: This lady is feeling a little bit better. She is a little bit less short of breath. Coughing less. PHYSICAL EXAMINATION: CHEST: Demonstrates fairly good breath sounds with scattered rales and rhonchi. IMPRESSION: 1. Right upper lobe pneumonitis with possible underlying neoplasm. 2. Left lower lobe nodule. PLAN: Continue to manage pneumonitis. Oncology and Pulmonology will work her up further for her lung abnormalities after she is discharged. MMODL / IJN: [id number] /
[2023-10-17] MEDS: LACTATED RINGERS 1,000 ML IV SCH (05:41)
[2023-10-17] MEDS: SYMBICORT 160-4.5 MCG INHALER INHALATION SCH (08:00)
[2023-10-17] MEDS: HYDROCORTISONE 1% CREAM 454 GM JAR TOPICAL SCH (08:14)
[2023-10-17 08:49] VITALS: BP 112/67; PULSE 54; RESP 16; TEMP 98.7
[2023-10-17] MEDS: AZITHROMYCIN 500 MG in SODIUM CHLORIDE 0.9% 250 ML IVPB SCH (09:37)
[2023-10-17] MEDS: ACETAMINOPHEN TAB 325 MG TAB PO PRN (10:11)
--- NOTE | 2023-10-17 12:57 | XR ---
EXAMINATION TYPE: XR chest 1V portable DATE OF EXAM: 10/17/2023 12:45 PM CLINICAL INDICATION:Female, 63 years old with history of pneumonia; [facility] COMPARISON: Chest radiographs from 10/16/2023. TECHNIQUE: XR chest 1V portable Frontal view of the chest. FINDINGS: Lungs/Pleura: Right midlung airspace opacities. There is no evidence of pleural effusion, left focal consolidation, or pneumothorax. Pulmonary vascularity: Unremarkable. Heart/mediastinum: Cardiomediastinal silhouette is unremarkable. Musculoskeletal: No acute osseous pathology. Other findings: None IMPRESSION: Right midlung airspace opacities. Not significantly changed from 10/16/2023.
--- NOTE | 2023-10-17 15:54 | P.PN ---
Subjective Progress Note Date: 10/17/23 This is a very pleasant 63-year-old female patient with a known history of chronic and ongoing tobacco dependence of 50 years, stating she quit 6 months ago and suspected chronic obstructive pulmonary disease. She has a 5-day history of increasing shortness of breath cough congestion green productive sp utum nausea vomiting flulike symptoms. She was not feeling much better and presented here to the emergency room early this morning for the same. X-ray revealed anteriorinferior right upper lung pneumonic infiltrate. Slightly masslike appearance. CT scan of the chest revealed multifocal acute infectious process with most dense focal consolidation with air bronchograms in the anterior inferior right upper lobe. Active thoracic adenopathy is seen. Slowly enlarging 8 x 5 mm right lower lobe pulmonary nodule. White count 10.0. Hemoglobin 15.0. Platelets 208. Sodium 139. Potassium 3.8. Bicarb 23. BUN 22. Creatinine 1.13. Glucose 151. Influenza, RSV and COVID-19 screens negative. She is seen today in consultation on the regular medical floor. She is apparently laying fairly comfortably in bed. She is still nauseated. She still has a loose productive cough. She has been initiated on ceftriaxone and azithromycin. She is maintaining good O2 saturations in the 90s on room air. No IV fluids. The patient is seen today October 15, 2023 in follow-up on the regular medical f lisa. She is currently resting comfortably in bed. Awake and alert in no acute distress. She is maintaining good O2 saturations in the 90s on room air. Her procalcitonin was 3.63. She is continued on azithromycin and ceftriaxone. She has lactated Ringer's at 100 MLS per hour. She has a loose productive cough. Sputum cultures pending. No new labs today. On today's evaluation of 10/17/2022, the patient is feeling well. No specific complaints. She is on room air oxygen. Note that the patient was hospitalized for a right lung pneumonia the patient had an extensive right midlung airspace opacity that has not shown any significant change on today's chest x-ray compared to the chest x-ray that was obtained earlier. Nevertheless, the patient is clinically improved.Cultures are negative the white cell count at time of admission was 10 and procalcitonin level is at 3.6. The patient was treated with broad-spectrum antibiotics and the patient is going to be discharged today on oral antibiotics. The patient will be offered Keflex. The patient is a chronic smoker. Outpatient follow-up will be needed regarding the right lung consolidation. Based on the CAT scan findings, this is most consistent with pneumonia over malignancy. Objective - Vital Signs Vital signs: Vital Signs Temp 98.7 F 10/17/23 07:00 Pulse 74 10/17/23 08:09 Resp 16 10/17/23 07:00 BP 112/67 10/17/23 07:00 Pulse Ox 93 L 10/17/23 07:00 FiO2 Intake & Output 10/16/23 10/17/23 10/17/23 18:59 06:59 18:59 Intake Total 237 Balance 237 Intake: Oral 237 Other: # Voids 3 1 # Bowel Movements 1 - Exam No acute distress, oriented 3. Currently on room air. HEENT examination is grossly unremarkable. Mucous membranes are moist. No oral lesions. Neck supple. Full range of motion. No adenopathy thyromegaly or neck vein di stention. Cardiovascular examination reveals regular rhythm rate. S1-S2 normal. No S3 or S4. No discernible murmur noted. Heart rate 57 bpm. Lungs reveal scattered bilateral rhonchi, right greater than left. No wheezes or crackles. Breath sounds equal. Room air saturation is 93%. Abdomen soft bowel sounds are heard. No masses or tenderness. Extremities are intact. No cyanosis clubbing or edema. Skin is without rash or lesion. Neurologic examination is brief but nonfocal. - Labs CBC & Chem 7: 10/14/23 05:01 10/14/23 05:01 Labs: Microbiology - Last 24 Hours (Table) 10/15/23 09:33 Gram Stain - Final Sputum Sputum Culture - Final 10/14/23 05:01 Blood Culture - Preliminary Blood 10/14/23 04:40 Blood Culture - Preliminary Blood Assessment and Plan Plan: Acute hypoxemic respiratory failure secondary to an acute community-acquired pneumonia. Procalcitonin 3.63. Dense focal consolidation with air bronchograms in the anteriorinferior right upper lobe. Right lower lobe pulmonary nodule slowly enlarging measuring 8 x 5 mm. Acute exacerbation of chronic obstructive pulmonary disease secondary to above. Chronic and ongoing tobacco dependence of greater than 50 years, quit 6 months ago. Plan Clinically the patient is improved. The patient is being discharged today by medicine to be treated on an outpatient basis with oral antibiotics. The patient will need a follow-up x-ray in 2 to 3 weeks to assess progression/improvement of the right lung consolidation. If no improvement, bronchoscopy would be indicated. The patient has made a commitment not to smoke patient is currently on room air oxygen. Rates are being done to discharge the patient with an outpatient follow-up.
[2023-10-17] MEDS ORDERED: CEPHALEXIN 500 MG CAP PO SCH (16:00)
--- NOTE | 2023-10-17 20:18 | DS ---
DISCHARGE SUMMARY CHIEF COMPLAINT: Fever and chills, cough, and right upper lobe pneumonitis. HISTORY OF PRESENT ILLNESS AND PHYSICAL EXAM: Details of this lady's history and physical can be found in the initial workup. COURSE IN THE HOSPITAL: After admission, she was placed on bedrest, started intravenous fluids, updrafts, and IV inhaled steroids as well as antibiotics. Her chest slowly improved and her cough subsided along with her shortness of breath. While in the hospital, she was seen by Oncology because of possible neoplasm on the right upper lobe and a nodule in the left lower lobe. She was doing well and felt she could be discharged on the and she will be set up with a nebulizer at home. She will come into the office in next few days and she will also be referred to Oncology for followup as well. FINAL DIAGNOSES: 1. Right upper lobe pneumonitis. 2. Possible neoplasm of the right upper lobe. 3. Left lower lobe nodule. 4. Chronic obstructive pulmonary disease. OPERATIONS: None. CONSULTATIONS: Oncology and Pulmonology. She is improved. MMODL / AMBROSEN: [id number] /
[2023-10-18] MEDS ORDERED: methylPREDNISolone 4 MG TAB TAPER PO SCH (09:00)
== END 2023-10-17 14:05 | disposition home or self-care (01) | DRG 139 ==
LOC: EC 04:44 → 6NMEDSUR 05:51 → OBSVTOIN 10-17 08:12
PROVIDERS: ADMIT Family Medicine; ATTEND Family Medicine
DX: J18.9 Pneumonia, unspecified organism (principal); J44.0 Chronic obstructive pulmonary disease with (acute) lower respiratory infection; J44.1 Chronic obstructive pulmonary disease with (acute) exacerbation; J96.01 Acute respiratory failure with hypoxia; J98.11 Atelectasis; Z87.891 Personal history of nicotine dependence; C34.11 Malignant neoplasm of upper lobe, right bronchus or lung; R59.0 Localized enlarged lymph nodes; Z90.79 Acquired absence of other genital organ(s); H40.9 Unspecified glaucoma; Z90.721 Acquired absence of ovaries, unilateral; M81.0 Age-related osteoporosis without current pathological fracture; Z79.51 Long term (current) use of inhaled steroids; Z80.1 Family history of malignant neoplasm of trachea, bronchus and lung; Z80.3 Family history of malignant neoplasm of breast; Z85.3 Personal history of malignant neoplasm of breast; Z85.828 Personal history of other malignant neoplasm of skin; Z87.442 Personal history of urinary calculi; Z86.19 Personal history of other infectious and parasitic diseases; Z79.899 Other long term (current) drug therapy; Z88.5 Allergy status to narcotic agent; Z88.8 Allergy status to other drugs, medicaments and biological substances; Z92.21 Personal history of antineoplastic chemotherapy; Z92.3 Personal history of irradiation
CPT/HCPCS: 36415; 71045; 71046; 71260; 80053; 83605; 84145; 85025; 85610; 85730; 87040; 87070; 87205; 87636; 93005; 94640; 94760; 96365; 96375; 99285

== ENCOUNTER → 2023-11-17 | Outpatient (CLI) | payer OTHER ==
--- NOTE | 2023-11-21 15:19 | PE ---
EXAMINATION TYPE: PET CT fusion skull to thigh DATE OF EXAM: 11/17/2023 COMPARISON: CT abdomen and pelvis May 13, 2022. Chest CT October 14, 2023 HISTORY: Solitary pulmonary nodule TECHNIQUE: Following the intravenous administration of 12.14 mCi of F-18 FDG, whole body images are performed from the skull base to the midthigh. Images are reviewed on the computer in the coronal, a xial, and sagittal planes. Reconstructed rotating images are created on independent workstation and reviewed on the computer. A localization and attenuation correction CT is performed in conjunction with the PET scan. Blood glucose level equals 96. SCAN: Initial Scan FINDINGS: SKULL BASE AND NECK: No areas of abnormally increased hypermetabolic uptake CHEST, MEDIASTINUM, AND HILAR REGION: Persistent masslike consolidation in the anterior right midlung has mild hypermetabolic uptake, Max SUV is 4.38. Areas of groundglass opacity adjacent to this are r edemonstrated. Persistent 1.2 x 0.5 cm right upper lobe pulmonary nodule axial image 73 with max SUV of 5.03. Stable 6 mm right lower lobe pulmonary nodule axial image 117 without abnormal hypermetaboli c uptake. Some hypermetabolic uptake right hilar region corresponding to subcentimeter lymph node axial image 8 7, max SUV is 5.29. Enlarged right tracheobronchial 1.5 cm lymph node axial image 81 with max SUV of 6.03. No additional areas of abnormal hypermetabolic uptake. ABDOMEN AND PELVIS: No hypermetabolic adrenal masses. Normal excretion. No areas of abnormal hypermet abolic uptake. OSSEOUS STRUCTURES: No areas of abnormal hypermetabolic uptake. OTHER CT: Nasal septum is deviated to right of midline. Small to moderate-size pericardial effusion i s redemonstrated. Left breast is surgically absent. Surgical clips in the left axilla are again seen. Multiple renal calculi redemonstrated bilaterally. There is disc space narrowing at L1-L2 and L5-S1 levels redemonstrated. IMPRESSION: Findings are nonspecific but neoplastic process cannot be excluded. Abnormal right lung h ypermetabolic uptake with abnormal hypermetabolic uptake in the mediastinum and right hilar region.
== END | disposition home or self-care (01) ==
LOC: RADPETMAIN 07:37
PROVIDERS: ATTEND Internal Medicine Hematology & Oncology
DX: R91.1 Solitary pulmonary nodule (principal)
CPT/HCPCS: 78815; A9552

== ENCOUNTER → 2024-01-03 | Outpatient (CLI) | payer OTHER ==
[2024-01-03 14:59] VITALS: BP 129/76; PULSE 79; RESP 17; TEMP 97.9
--- NOTE | 2024-01-03 15:06 | P.HPOB ---
History of Present Illness H&P Date: 01/03/24 Chief Complaint: The patient is here for her routine gynecologic exam and ma mmogram. This is a 63-year-old -0-3-2 with an LMP of 2009. Patient is without gynecologic complaints. Denies any postmenopausal bleeding. Review of Systems She has gained about 6 pounds since she was last here in 2020. She denies respiratory or, cardiac, or GI problems. : She states she has a kidney stone and has a doctor she sees for this. Past Medical History Past Medical History: Cancer, Eye Disorder, Renal Disease Additional Past Medical History / Comment(s): Left breast cancer 2009, kidney stones , skin cancer, glaucoma, Hepatitis C (treated years ago), and osteoporosis 2019. Followed for a pulmonary nodule. 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 History of Any Multi-Drug Resistant Organisms: None Reported Past Surgical History: Breast Surgery Additional Past Surgical History / Comment(s): Right salpingo-oophorectomy 2009(benign), lithotripsy, stents placed and removed for kidney stones. Colonoscopy 2014(next after 5yr per pt). Past Psychological History: No Psychological Hx Reported, Anxiety Smoking Status: Former smoker Past Alcohol Use History: Rare (0-2 drinks per year.) Additional Past Alcohol Use History / Comment(s): Quit smoking in 2019. Previous heavy alcohol use as a teenager. Past Drug Use History: None Reported Additional History: She has been twice. She periodically sees her second ex- on and off. 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 - Past Family History Father Family Medical History: Cancer Additional Family Medical History / Comment(s): Lung cancer. Maternal cousin Family Medical History: Cancer Additional Family Medical History / Comment(s): Breast cancer. Medications and Allergies Home Medications Medication Instructions Recorded Confirmed Type Budesonide-Formot 160-4.5 Mcg 2 puff INHALATION RT-BID 10/14/23 01/03/24 History [Symbicort 160-4.5 Mcg Inhaler] Ipratropium-Albuterol Nebulize 3 ml INHALATION RT-Q4H PRN #120 10/17/23 01/03/24 Rx [Duoneb 0.5 mg-3 mg/3 ml Soln] each Allergies Allergy/AdvReac Type Severity Reaction Status Date / Time heparin (porcine) Allergy Swelling Verified 01/03/24 14:14 Exam Vital Signs Temp Pulse Resp BP Pulse Ox 01/03/24 14:15 97.9 F 79 17 129/76 96 Intake and Output 01/02/24 01/03/24 01/03/24 22:59 06:59 14:59 Other: Weight 52.617 kg Height 5 feet 3 inches, weight 116 pounds, BMI 20.5. This is a well-developed well-nourished white female who is alert and oriented times 3 in no acute distress. HEENT: Within normal limits. NECK: Supple without mass or thyromegaly. CHEST AND LUNGS: Clear to auscultation. HEART: Regular rate and rhythm. BREASTS: Are without mass or discharge. Left chest is consistent with previous left mastectomy. This is well-healed and there are no masses or tenderness. AXILLARY EXAM: Negative for adenopathy. BACK: Negative for CVA tenderness. ABDOMEN: Soft, nontender, without palpable masses. PELVIC EXAM: Normal external genitalia with mild to moderate atrophy. Cervix and vagina appear normal with mild to moderate atrophy. There is no unusual discharge. There is no evidence of prolapse. The uterus is midposition, nongravid size and nontender. There are no palpable adnexal masses or tenderness. RECTAL EXAM: Rectovaginal exam is negative for mass or tenderness and is negative for occult blood. EXTREMITIES: Nontender. IMPRESSION: 1. 63-year-old menopausal female status post previous RSO for benign reasons, with normal gynecologic exam. 2. History of osteoporosis and the patient has refused treatment for this in the past. 3. History of left breast cancer status post mastectomy, with no evidence of recurrence on exam today. PLAN: 1. Pap smear cotest was performed. 2. Self breast awareness was discussed with the patient. We have also discussed symptoms associated with inflammatory breast cancer. 3. Screening mammogram was done today. 4. Osteoporosis management was discussed. I have stressed the importance of adequate calcium, vitamin D and regular exercise. Recommended amounts of calcium and vitamin D were also discussed. She has refused treatment for osteoporosis in the past. We have discussed how she is at a significantly greater risk for bone fracture and how medication can strengthen bones and decrease the risk for bone fracture. She is still not interested in taking medication for this. She was given information on osteoporosis and on Fosamax. If she changes her mind, she was instructed to call to let me know, or to discuss this with her PCP. At this time I do not find that repeating the bone density test will give any additional useful information. I am recommending that she take prescription medication for her osteoporosis. She is to also try to do what ever she can to avoid falling. 5. She was advised to return in one year for her annual well woman exam.
== END ==
LOC: WWCWWP 13:15
PROVIDERS: ATTEND Obstetrics & Gynecology
DX: Z12.31 Encounter for screening mammogram for malignant neoplasm of breast (principal); Z78.0 Asymptomatic menopausal state; Z81.0 Family history of intellectual disabilities; Z90.89 Acquired absence of other organs; Z88.8 Allergy status to other drugs, medicaments and biological substances; Z87.891 Personal history of nicotine dependence
CPT/HCPCS: 77063; 77067

== ENCOUNTER → 2024-03-01 | Outpatient (CLI) | payer OTHER ==
--- NOTE | 2024-03-03 18:43 | CT ---
EXAMINATION TYPE: CT chest wo con DATE OF EXAM: 03/01/2024 COMPARISON: CT chest 10/14/2023 HISTORY: lung nodule CT DLP: 290 mGycm, Automated exposure control for dose reduction was used. CONTRAST: Performed injected with 0 mL of Isovue 300. TECHNIQUE: Axial images were obtained at 1 mm thick sections. Reconstructed images are reviewed on [employer] computer in the coronal plane. FINDINGS: Portion of the thyroid visualized is normal. 1.1 cm nodules in the upper right lobe. Series 3 image 145. There is a consolidation in the right mid dle lobe. There is a 1.5 cm pretracheal lymph node present. Additional 1.3 cm pretracheal node is present. Naylor bcarinal lymph node is present measuring 1.2 cm. The ascending aorta diameter at the level of the justo n pulmonary artery is 3.4 cm. The main pulmonary artery diameter at the bifurcation is 2.5 cm. A mod erate pericardial effusion is present. Limited CT sections are obtained through the upper abdomen. Extensive cortical calcifications are wit hin the bilateral kidneys. Obstructing not identified within the [id number]. IMPRESSION: 1. Consolidation right middle lobe present previously. Neoplasm should be considered. 2. Nodule right upper lobe. 3. Enlarged pretracheal lymphadenopathy and subcarinal lymphadenopathy
== END | disposition home or self-care (01) ==
LOC: RADCTMAIN 12:40
PROVIDERS: ATTEND Internal Medicine Critical Care Medicine
DX: R91.1 Solitary pulmonary nodule (principal); R59.1 Generalized enlarged lymph nodes
CPT/HCPCS: 71250

== ENCOUNTER → 2024-03-07 | Outpatient (CLI) | payer OTHER ==
--- NOTE | 2024-03-07 13:07 | XR ---
EXAMINATION TYPE: XR KUB DATE OF EXAM: 03/07/2024 HISTORY: Pain Comparison: None.Single KUB is submitted for interpretation. Findings: Right renal calculi: Innumerable right-sided renal calculi seen the largest identified within the low er pole measuring 7 mm. Right ureteral calculi: None Visualized. Left renal calculi: Innumerable left-sided renal calculi seen the largest identified within the lowe r pole measuring 8 mm. Left ureteral calculi: None Visualized. Pelvic calcifications: Multiple Bowel gas pattern is unremarkable. No free air. No mass effects. IMPRESSION: 1. As above
[2024-03-07 15:25] LABS: Appearance,Urine Clear (Clear); Bilirubin,Urine Negative (Negative); Blood,Urine Large (Negative); Color,Urine Yellow (Yellow); Ketones,Urine Negative (Negative); Nitrite,Urine Negative (Negative); PH, Urine 5.5; Specific Gravity,Urine 1.013 (1.001-1.030); Urobilinogen,Urine 0.2 E.U./DL
[2024-03-07 15:35] LABS: Bacteria,Urine None Seen (None Seen)
== END | disposition home or self-care (01) ==
LOC: RADXRMAIN 10:31
PROVIDERS: ATTEND Urology
DX: N20.0 Calculus of kidney (principal)
CPT/HCPCS: 74018; 81001; 87086

== ENCOUNTER 2024-05-03 12:00 | Day surgery (SDC) | payer OTHER ==
[2024-05-03] MEDS ORDERED: PROPOFOL 10 MG/ML 20 ML VIAL IV ONE (12:20)
[2024-05-03] MEDS ORDERED: SUCCINYLCHOLINE CHLORIDE 200 MG/10 ML VIAL IV ONE (12:20)
[2024-05-03] MEDS ORDERED: LACTATED RINGERS 1,000 ML BAG ONE (12:20)
[2024-05-03] MEDS ORDERED: LIDOCAINE 4% LTA KIT (4 ML) TOPICAL ONE (12:20)
[2024-05-03] MEDS ORDERED: NEOSTIGMINE 1 MG/ML 10 ML VIAL ONE (12:20)
[2024-05-03] MEDS ORDERED: LIDOCAINE 1% INJ 10MG/ML (20 ML MDV) ONE (12:20)
[2024-05-03] MEDS ORDERED: GLYCOPYRROLATE 0.2 MG/ML 2 ML VIAL ONE (12:20)
[2024-05-03] MEDS ORDERED: ROCURONIUM 10 MG/ML (5 ML VIAL) IV ONE (12:20)
[2024-05-03] MEDS ORDERED: PHENYLEPHRINE 10 MG/ML VIAL ONE (12:20)
[2024-05-03] MEDS ORDERED: ONDANSETRON 4 MG/2 ML VIAL ONE (14:47)
[2024-05-03] MEDS ORDERED: ACETAMINOPHEN TAB 500 MG TAB ONE (15:41)
--- NOTE | 2024-05-22 13:08 | CT ---
Patient: Yvette Marin M Ordering Physician: Sven Dubois ID: [id number] Phone, Pager: Phone: Pager: : [phone] Age/Gender: 64Y, F Primary Location: [facility] Procedure: CT CHEST WO CONTRAST S deidra Date: 03/01/2024 1:01:16 PM EXAMINATION TYPE: CT Chest wo con Veran Protocol DATE OF EXAM: 05/03/2024 COMPARISON: 03/01/2024 HISTORY: Solitary pulmonary nodule, history of pneumonia CT DLP: 311.22 mGycm, Automated exposure control for dose reduction was used. CONTRAST: Performed injected with 0 mL of Isovue 300. TECHNIQUE: Axial images were obtained at 1 mm thick sections. Reconstructed images are reviewed on [employer] computer in the coronal plane. FINDINGS: Thyroid appears atrophic. Scattered punctate nodules are present. Some larger nodules with irregular margins include right post erior lung apex measuring 1.9 x 1.0 cm, series 3 image 72. A 1.5 x 2.2 cm spiculated nodule anterior right upper lung field. Series 3 image 83. There is an irregular density in the right lower lobe jose manuel suring 1.3 x 0.8 cm series 3 image 24. Some groundglass opacity and/or some pulmonary fibrosis is within the anterior right middle lobe. Thi s extends towards the lung base. Groundglass opacities in the inferior medial right lung base. There is an enlarged 1.9 cm pretracheal lymph node present. An additional right peribronchial enlarg ed lymph node appears to be present near the cj measuring 1.9 cm. The ascending aorta diameter at the level of the main pulmonary artery is 8.3 cm. The main pulmonary artery diameter at the bifurcation is 2.7 cm. There is a moderately large pericardial effusion. Limited CT sections are obtained through the upper abdomen. A vague hypodensity measuring 2.1 cm cyst within the right lobe liver. Series 2 image 499. There may be some hypodensity in the right lobe mike er adjacent to the ligamentum teres. Incidental note is made of multiple bilateral nonobstructing renal stones. IMPRESSION: 1. Suspicious spiculated masses right lung. Pulmonary fibrosis and/or lymphangitic metastasis may be within the right middle lobe. 2. Enlarged mediastinal lymph nodes suspicious for metastasis. 3. Hypodense mass may be within the mid right lobe liver suspicious for metastasis.
--- NOTE | 2024-05-24 10:06 | XR ---
EXAMINATION TYPE: XR chest 1V DATE OF EXAM: 05/03/2024 HISTORY: Shortness of breath. COMPARISON: 10/17/2023 TECHNIQUE: Single view of the chest is submitted. FINDINGS: Demonstrated are scattered senescent parenchymal change. Masslike opacity is again noted within the right hilar region. The findings are suspicious for neopla sm. CT of the chest is recommended. Additional area of nodular infiltrate right suprahilar region. Th e left lung appears clear. Suggestion of mediastinal adenopathy. The heart is stable. Degenerative changes are seen of the dorsal spine. IMPRESSION: 1. Masslike opacity is again noted within the right hilar region. The findings are suspicious for ne oplasm. CT of the chest is recommended. Additional area of nodular infiltrate right suprahilar region . The left lung appears clear. Suggestion of mediastinal adenopathy.
--- NOTE | 2024-05-31 15:54 | P.PCN ---
Date of Procedure: 05/03/24 Operative Findings: Preoperative Diagnosis: Right upper lobe pulmonary nodule measuring 2.2 x 1.5 cm in size, target #1 Right upper lobe lung pulmonary nodule measuring 1.9 x 1.0 cm in size, target #2 Right upper lobe consolidation Mediastinal lymphadenopathy Postoperative Diagnosis: Right upper lobe pulmonary nodule measuring 2.2 x 1.5 cm in size, target #1 Right upper lobe lung pulmonary nodule measuring 1.9 x 1.0 cm in size, target #2 Right upper lobe consolidation Mediastinal lymphadenopathy Procedure(s) Performed: Flexible bronchoscopy Robotic-assisted bronchoscopy and addition to radial ultrasound evaluation of the right upper lobe mass #1 and right upper lobe mass #2 Robotic-assisted transbronchial transbronchial needle aspirate, transbronchial biopsies and transbronchial brushing endobronchial lavage of the right upper lobe pulmonary nodule #1 Robotic assisted transbronchial needle aspirate, transbronchial biopsy, transbronchial brushing endobronchial lavage of pulmonary nodule #2 Robotic-assisted transbronchial transbronchial biopsy of a right upper lobe area of pulmonary consolidation. Endobronchial ultrasound Transbronchial needle aspirate of station 4R lymph node. Anesthesia: SANDRAA Surgeon: Sven Dubois Estimated Blood Loss (ml): 0 Pathology: other Condition: stable Disposition: same day Operative Findings: A physical exam was performed. Informed consent was obtained from the patient after explaining all the risks (pneumothorax, life threatening bleeding, infection and adverse effects due to medications), benefits and alternatives to the procedure which the patient appeared to understand and so stated. The patient was connected to the monitoring devices. General anesthesia was induced and the patient was intubated by anesthesia. A final timeout was performed and the procedure confirmed by the attending staff bronchoscopist. The bronchoscope was inserted and the airway examined. Airway examination shows that the distal trachea, Right upper lobe and middle lobe and lower lobe bronchi was all within normal limits. Patient left mainstem bronchus is within normal limits. Examination of left lower lobe was within normal limits. The left upper lobe bronchus and the lingular segment was also patent within normal limits. The flexible bronchoscope was removed and the robotic bronchoscope was inserted. Registration was completed. I next guided the robotic bronchoscope using the navigation system into the right upper lobe pulmonary nodule #1. Once in proper position, the bronchoscope was frozen. The radial EBUS probe was placed through the bronchoscope and confirmed abnormal u/s images vs normal lung. A needle was placed through the working channel and another fluoroscopic guidance, we sampled the area in the right upper lobe nodule #1 where the opacity was present. We then used a cloud biopsy pattern with ultrasound confirmation for 2 additional passes with the needle. Following that, a forceps were next introduced through working channel and extended the appropriate distance and 3 transbronchial biopsies were performed using fluoroscopic guidance. The u/s probe was then reinserted to confirm location. When confirmed this process was repeated for a total of 8-10 transbronchial biopsies. After reassessment with EBUS, a brush was placed through the extendable working channel for 1 pass with fluoroscopic guidance. U/S evaluation was then used to confirm location. Following that, a bronchial lavage of right upper lobe pulmonary nodule #1 was performed with a total of 20 cc of saline was infused and 5 cc of saline was aspirated. The aspirate was bloody I next guided the robotic bronchoscope using the navigation system into the right upper lobe pulmonary nodule #2. Once in proper position, the bronchoscope was frozen. A needle was placed through the working channel and under fluoroscopic guidance, we sampled the right upper lobe pulmonary nodule #2. We then used a clot biopsy pattern with ultrasound confirmation for 2 additional passes with the needle. The radial EBUS probe was placed through the bronchoscope and confirmed abnormal u/s images vs normal lung. U/S evaluation was then used to reconfirm location. Forceps were next introduced through working channel and extended the appropriate distance and 3 transbronchial biopsies were performed using fluoroscopic guidance. The u/s probe was then reinserted to confirm location. When confirmed this process was repeated for a total of 8-10 transbronchial biopsies. Following that, a brush was placed through the extendable working channel for a 1 pass with fluoroscopic guidance. Subsequently, a bronchial lavage with the right upper lobe pulmonary nodule 2 was done with a total of 20 ml of saline was then instilled into the area of the lesion. 10 ml of effluent from the BAL was collected. The aspirate was bloody. Flex. bronchoscope was inserted and regular suctioning was done. At the completion of the procedure, no residual secretions or bloody material within the airway. The bronchoscope was removed. Subsequently, the endobronchial ultrasound was inserted. A complete evaluation of the various mediastinal stations was done using the endobronchial ultrasound. Of significance was a station 4R mediastinal lymph node that was measuring 1.5 cm in size. Using a 22-gauge with a sharp needle, transbronchial needle aspirate of the station 4R lymph node was done and a total of 5 passes was taken without any complications. Endobronchial ultrasound was subsequently removed. FINDINGS: 1.The airways appeared normal 2 Successful navigation, ultrasonographic identification, and biopsies of right upper lobe pulmonary nodule #1, pulmonary nodule #2, right upper lobe consolidation 3.The the radial ultrasound view was concentric 4 endobronchial ultrasound RECOMMENDATIONS: Await pathology and cytology results The referring physician will be alerted to the results when available. The patient was advised to follow up with the referring physician with the biopsy results Patient will be called with results.
--- NOTE | 2024-06-12 18:21 | FL ---
EXAMINATION TYPE: FL bronchoscopy DATE OF EXAM: 05/22/2024 8:59 AM COMPARISON: Pre Operative Images if available both CT/MRI or plain film CLINICAL INDICATION: Female, 64 years old with history of ION BRONCH WITH FLUORO LUNG NODULE; TECHNIQUE: FL bronchoscopy, multiple fluoroscopic images provided for procedure. Total fluoroscopy time: 1.26 minutes Total submitted images to PACS: 3 DAP: 1.3520 mGym2 Gycm2 uGym2 cGycm2 or equivalent. FINDINGS: ION bronchoscopy images demonstrate bronchoscope terminating in the lung. No immediate complications identified, no pneumothorax identified. IMPRESSION: 1. No evidence for intraoperative complication. 2. Please see the operative/procedural note for further details. [facility], , 06/12/2024 6:19 PM
== END 2024-05-03 16:20 ==
LOC: ORWHC2ENDO 12:00
PROVIDERS: ATTEND Internal Medicine Critical Care Medicine
DX: C34.11 Malignant neoplasm of upper lobe, right bronchus or lung (principal); J44.0 Chronic obstructive pulmonary disease with (acute) lower respiratory infection; J18.9 Pneumonia, unspecified organism; B18.2 Chronic viral hepatitis C; R59.0 Localized enlarged lymph nodes; F17.200 Nicotine dependence, unspecified, uncomplicated; Z79.51 Long term (current) use of inhaled steroids; Z79.899 Other long term (current) drug therapy; Z85.3 Personal history of malignant neoplasm of breast; Z87.891 Personal history of nicotine dependence; Z80.1 Family history of malignant neoplasm of trachea, bronchus and lung
CPT/HCPCS: 31623; 31624; 31625; 31627; 31628; 31629; 31633; 31652; 31654; 71045; 71250; 87070; 87102; 87116; 87205; 87206; 88305; 88341; 88342

== ENCOUNTER → 2024-05-21 | Outpatient (CLI) | payer OTHER ==
--- NOTE | 2024-05-21 12:52 | XR ---
EXAMINATION TYPE: XR KUB DATE OF EXAM: 05/21/2024 HISTORY: 03/07/2024 Comparison: None.Single KUB is submitted for interpretation. Findings: Right renal calculi: Innumerable right-sided renal calculi seen the largest identified within the low er pole measuring 7 mm. Right ureteral calculi: None Visualized. Left renal calculi: Innumerable left-sided renal calculi seen the largest identified within the lowe r pole measuring 7 mm. Left ureteral calculi: None Visualized. Pelvic calcifications: Multiple pelvic calcifications could reflect phlebolith formation. Bowel gas pattern is unremarkable. No free air. No mass effects. IMPRESSION: 1. As above
== END | disposition home or self-care (01) ==
LOC: RADXRMAIN 12:29
PROVIDERS: ATTEND Urology
DX: N20.0 Calculus of kidney (principal)
CPT/HCPCS: 74018

== ENCOUNTER 2024-06-10 23:10 | Emergency (ER) | payer OTHER ==
[2024-06-10 23:18] VITALS: TEMP 98.4
--- NOTE | 2024-06-10 23:38 | ED ---
SOB HPI - General Chief Complaint: Shortness of Breath Stated Complaint: CP, Nausea Time Seen by Provider: 06/10/24 23:22 Source: patient Mode of arrival: wheelchair Limitations: no limitations - History of Present Illness Initial Comments: This patient is a 64-year-old woman who presents to have evaluation for chest pressure that had come on yesterday in the morning. Patient states that it was worse this evening so she presents to have evaluation. She describes it as a pressure in the substernal and left chest area. She does have some associated vomiting but she is also having diarrhea. She attributes this to having a few days of constipation related to having a urinary stent. She states that she took the stent out today. She started having diarrhea. She states that this is usual for her as she can never have a bowel movement with urinary stent in place. The patient has not noted fever or chills. Cough is nonproductive. The patient did have bronchoscopy on May 03 for biopsy of a "spot" on her lung. The patient reports that she was diagnosed with lung cancer based on the bronchoscopy. She has not had any treatment yet. MD Complaint: shortness of breath, chest pain Onset/Timin -: days(s) Severity: moderate Quality: other (Pressure) Consistency: constant Improves With: nothing Worsens With: nothing Associated Symptoms: nausea/vomiting Treatments Prior to Arrival: none - Related Data Home Oxygen Therapy: No Home Medications Medication Instructions Recorded Confirmed Budesonide-Formot 160-4.5 Mcg 2 puff INHALATION RT-BID 10/14/23 01/03/24 [Symbicort 160-4.5 Mcg Inhaler] Previous Rx's Medication Instructions Recorded Ipratropium-Albuterol Nebulize 3 ml INHALATION RT-Q4H PRN #120 10/17/23 [Duoneb 0.5 mg-3 mg/3 ml Soln] each Azithromycin [Zithromax] 0 mg PO DIRECTED #6 tab 06/11/24 HYDROcodone/APAP 5-325MG [[place]ail 1 tab PO Q4HR PRN 3 Days #18 tab 06/11/24 5-325] Allergies Allergy/AdvReac Type Severity Reaction Status Date / Time heparin (porcine) Allergy Swelling Verified 06/10/24 23:15 Review of Systems ROS Statement: Those systems with pertinent positive or pertinent negative responses have been documented in the HPI. ROS Other: All systems not noted in ROS Statement are negative. Constitutional: Denies: fever, chills, weakness Respiratory: Reports: cough, dyspnea, wheezes Cardiovascular: Reports: chest pain. Denies: palpitations, orthopnea, edema, syncope Gastrointestinal: Reports: nausea, vomiting, diarrhea. Denies: abdominal pain, melena, hematochezia Genitourinary: Denies: dysuria, hematuria Musculoskeletal: Denies: back pain Skin: Denies: rash Neurological: Denies: headache, weakness Past Medical History Past Medical History: Cancer, Eye Disorder, Renal Disease Additional Past Medical History / Comment(s): Left breast cancer 2010, kidney stones , skin cancer, glaucoma, Hepatitis C (treated years ago), and osteoporosis 2019. Followed for a pulmonary nodule. 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 History of Any Multi-Drug Resistant Organisms: None Reported Past Surgical History: Breast Surgery Additional Past Surgical History / Comment(s): Right salpingo-oophorectomy 2009(benign), lithotripsy, stents placed and removed for kidney stones. Colonoscopy 2014(next after 5yr per pt). stent placed 06/05 renal Past Psychological History: Anxiety Smoking Status: Former smoker Past Alcohol Use History: Rare Past Drug Use History: None Reported - Past Family History Father Family Medical History: Cancer Additional Family Medical History / Comment(s): Lung cancer. Maternal cousin Family Medical History: Cancer Additional Family Medical History / Comment(s): Breast cancer. General Exam Limitations: no limitations General appearance: alert, in no apparent distress Head exam: Present: atraumatic, normocephalic Eye exam: Present: normal appearance. Absent: scleral icterus, conjunctival injection ENT exam: Present: normal oropharynx Neck exam: Present: normal inspection Respiratory exam: Present: wheezes. Absent: respiratory distress, rales, rhonc hi, stridor, chest wall tenderness, accessory muscle use Cardiovascular Exam: Present: regular rate, normal rhythm, normal heart sounds. Absent: systolic murmur, diastolic murmur, rubs, gallop GI/Abdominal exam: Present: soft. Absent: distended, tenderness, guarding, rebound, rigid, mass Extremities exam: Present: normal inspection, normal capillary refill. Absent: pedal edema, calf tenderness Back exam: Present: normal inspection. Absent: CVA tenderness (R), CVA tenderness (L) Neurological exam: Present: alert Skin exam: Present: warm, dry, intact, normal color. Absent: rash Course Vital Signs 06/10/24 06/10/24 06/11/24 23:15 23:47 00:00 Temperature 98.4 F Pulse Rate 102 H 93 Respiratory 18 18 20 Rate Blood Pressure 162/92 136/101 O2 Sat by Pulse 92 L 92 L Oximetry 06/11/24 03:55 Temperature Pulse Rate 95 Respiratory 18 Rate Blood Pressure 118/88 O2 Sat by Pulse 94 L Oximetry Medical Decision Making - Medical Decision Making The patient had chest x-ray that I interpreted as showing infiltrate consistent with pneumonia. The patient had CT scan of the chest which I interpreted as negative for acute pulmonary embolism. Lung mass is visualized as well as pneumonia Was pt. sent in by a medical professional or institution ([facility], [employer], urgent care, hospital, or [place] health care facility...) When possible be specific @ -[No] Did you speak to anyone other than the patient for history (EMS, parent, family, police, friend...)? What history was obtained from this source @ -[No] Did you review nursing and triage notes (agree or disagree)? Why? @ -[I reviewed and agree with nursing and triage notes] Were old charts reviewed (outside hosp., previous admission, EMS record, old EKG, old radiological studies, urgent care reports/EKG's, [place] health care facility records)? Report findings @ -[Yes, old charts were reviewed] Differential Diagnosis (chest pain, altered mental status, abdominal pain women, abdominal pain men, vaginal bleeding, weakness, fever, dyspnea, syncope, headache, dizziness, GI bleed, back pain, seizure, CVA, palpatations, mental health, musculoskeletal)? @ -[Differential Chest Pain: Stable Angina, Unstable Angina, STEMI, NSTEMI Aortic Dissection, Pneumothorax, Musculoskeletal, Esophageal Spasm GERD, Cholecystitis, Pancreatitis, Zoster, this is not meant to be an all-inclusive list. EKG interpreted by me (3pts min.). @ -[I interpreted as above X-rays interpreted by me (1pt min.). @ -[I interpreted as above CT interpreted by me (1pt min.). @ -[None done] U/S interpreted by me (1pt. min.). @ -[None done] What testing was considered but not performed or refused? (CT, X-rays, U/S, labs)? Why? @ -[None] What meds were considered but not given or refused? Why? @ -[None] Did you discuss the management of the patient with other professionals (professionals i.e. , PA, [employer]PER[employer], lab, RT, psych nurse, social media campaign manager, digital associate media director, teacher, disability hearing officer, case sealer)? Give summary @ -[No] Was smoking cessation discussed for >3mins.? @ -[No] Was critical care preformed (if so, how long)? @ -[No] Were there social determinants of health that impacted care today? How? (Homelessness, low income, unemployed, alcoholism, drug addiction, transportation, low edu. Level, literacy, decrease access to med. care, alf, rehab)? @ -[No] Was there de-escalation of care discussed even if they declined (Discuss DNR or withdrawal of care, Hospice)? DNR status @ -[No] What co-morbidities impacted this encounter? (DM, HTN, Smoking, COPD, CAD, Cancer, CVA, ARF, Chemo, Hep., AIDS, mental health diagnosis, sleep apnea, morbid obesity)? @ -[Lung cancer Was patient admitted / discharged? Hospital course, mention meds given and route, prescriptions, significant lab abnormalities, going to OR and other pertinent info. @ -[Patient is 64-year-old woman presenting with chest pain and on the x-rays she does appear to have infiltrate consistent with pneumonia. The patient is started on antibiotic therapy. Discussed admission but at this point the patient would prefer outpatient course of medication. We discussed the appropriate further care and follow-up as well as return parameters. Undiagnosed new problem with uncertain prognosis? @ -[No] Drug Therapy requiring intensive monitoring for toxicity (Heparin, Nitro, Insulin, Cardizem)? @ -[No] Were any procedures done? @ -[No] Diagnosis/symptom? @ -[Acute pneumonia Lung cancer Acute, or Chronic, or Acute on Chronic? @ -[Acute Uncomplicated (without systemic symptoms) or Complicated (systemic symptoms)? @ -[Uncomplicated Side effects of treatment? @ -[No] Exacerbation, Progression, or Severe Exacerbation? @ -[No] Poses a threat to life or bodily function? How? (Chest pain, USA, ND, pneumonia, PE, COPD, DKA, ARF, appy, cholecystitis, CVA, Diverticulitis, Homicidal, Suicidal, threat to staff... and all critical care pts) @ -[There is risk of progression, patient is given strict return parameters - Lab Data Result diagrams: 06/10/24 23:58 06/10/24 23:58 Lab Results 06/10/24 06/10/24 06/10/24 Range/Units 23:58 23:58 23:58 WBC 9.6 (3.8-10.6) k/uL RBC 4.74 (3.80-5.40) m/uL Hgb 14.0 (11.4-16.0) gm/dL Hct 43.2 (34.0-46.0) % MCV 91.1 (80.0-100.0) fL MCH 29.6 (25.0-35.0) pg MCHC 32.5 (31.0-37.0) g/dL RDW 13.4 (11.5-15.5) % Plt Count 245 (150-450) k/uL MPV 8.5 Neutrophils % 74 % Lymphocytes % 15 % Monocytes % 7 % Eosinophils % 2 % Basophils % 0 % Neutrophils # 7.1 (1.3-7.7) k/uL Lymphocytes # 1.5 (1.0-4.8) k/uL Monocytes # 0.7 (0-1.0) k/uL Eosinophils # 0.2 (0-0.7) k/uL Basophils # 0.0 (0-0.2) k/uL PT 11.8 (10.0-12.5) sec INR 1.1 (<1.2) APTT 24.5 (22.0-30.0) sec D-Dimer 4.10 H (<0.60) mg/L FEU Sodium 139 (137-145) mmol/L Potassium 4.0 (3.5-5.1) mmol/L Chloride 108 H (98-107) mmol/L Carbon Dioxide 22 (22-30) mmol/L Anion Gap 9 mmol/L BUN 22 H (7-17) mg/dL Creatinine 0.92 (0.52-1.04) mg/dL Est GFR (CKD-EPI)AfAm 77 (>60 ml/min/1.73 sqM) Est GFR (CKD-EPI)NonAf 67 (>60 ml/min/1.73 sqM) Glucose 120 H (74-99) mg/dL Plasma Lactic Acid Travon (0.7-2.0) mmol/L Calcium 9.9 (8.4-10.2) mg/dL Total Bilirubin 0.8 (0.2-1.3) mg/dL AST 50 H (14-36) U/L ALT 36 H (4-34) U/L Alkaline Phosphatase 113 (38-126) U/L Troponin I (0.000-0.034) ng/mL Total Protein 6.8 (6.3-8.2) g/dL Albumin 4.4 (3.5-5.0) g/dL 06/10/24 06/10/24 Range/Units 23:58 23:58 WBC (3.8-10.6) k/uL RBC (3.80-5.40) m/uL Hgb (11.4-16.0) gm/dL Hct (34.0-46.0) % MCV (80.0-100.0) fL MCH (25.0-35.0) pg MCHC (31.0-37.0) g/dL RDW (11.5-15.5) % Plt Count (150-450) k/uL MPV Neutrophils % % Lymphocytes % % Monocytes % % Eosinophils % % Basophils % % Neutrophils # (1.3-7.7) k/uL Lymphocytes # (1.0-4.8) k/uL Monocytes # (0-1.0) k/uL Eosinophils # (0-0.7) k/uL Basophils # (0-0.2) k/uL PT (10.0-12.5) sec INR (<1.2) APTT (22.0-30.0) sec D-Dimer (<0.60) mg/L FEU Sodium (137-145) mmol/L Potassium (3.5-5.1) mmol/L Chloride (98-107) mmol/L Carbon Dioxide (22-30) mmol/L Anion Gap mmol/L BUN (7-17) mg/dL Creatinine (0.52-1.04) mg/dL Est GFR (CKD-EPI)AfAm (>60 ml/min/1.73 sqM) Est GFR (CKD-EPI)NonAf (>60 ml/min/1.73 sqM) Glucose (74-99) mg/dL Plasma Lactic Acid Travon 0.9 (0.7-2.0) mmol/L Calcium (8.4-10.2) mg/dL Total Bilirubin (0.2-1.3) mg/dL AST (14-36) U/L ALT (4-34) U/L Alkaline Phosphatase (38-126) U/L Troponin I <0.012 (0.000-0.034) ng/mL Total Protein (6.3-8.2) g/dL Albumin (3.5-5.0) g/dL - EKG Data -: EKG Interpreted by Me EKG shows normal: sinus rhythm, axis (Normal), intervals (Normal), QRS complexes (Normal), ST-T waves (Normal) Rate: normal (Rate 98 bpm) Interpretation: other (Possible left atrial enlargement) Disposition Clinical Impression: Chest pain, Pneumonia Disposition: HOME SELF-CARE Condition: Fair Instructions (If sedation given, give patient instructions): Pneumonia (ED) Prescriptions: HYDROcodone/APAP 5-325MG [[place] 5-325] 1 tab PO Q4HR PRN 3 Days #18 tab PRN Reason: Pain Azithromycin [Zithromax] 0 mg PO DIRECTED #6 tab Is patient prescribed a controlled substance at d/c from ED?: Yes Referrals: Edison Stroud MD [Primary Care Provider] - 1-2 days
[2024-06-11] MEDS: ONDANSETRON 4 MG/2 ML VIAL IVP STA (00:25)
[2024-06-11] MEDS: MORPHINE SULFATE 4 MG/ML SYRINGE IV STA (00:26)
[2024-06-11] MEDS: ASPIRIN 81 MG PO STA (00:28)
[2024-06-11 00:30] LABS: Basophils % (A) 0 %; Eosinophils # (A) 0.2 k/uL (0-0.7); Eosinophils % (A) 2 %; HCT 43.2 % (34.0-46.0); Lymphocytes # (A) 1.5 k/uL (1.0-4.8); Lymphocytes % (A) 15 %; MCH 29.6 pg (25.0-35.0); MCHC 32.5 g/dL (31.0-37.0); MCV 91.1 fL (80.0-100.0); Mean Platelet Volume 8.5; Monocytes # (A) 0.7 k/uL (0-1.0); Monocytes % (A) 7 %; Neutrophils # (A) 7.1 k/uL (1.3-7.7); Neutrophils % (A) 74 %; Platelet Count 245 k/uL (150-450); RBC 4.74 m/uL (3.80-5.40); RDW 13.4 % (11.5-15.5); WBC 9.6 k/uL (3.8-10.6)
[2024-06-11 00:52] LABS: INR 1.1 (<1.2); Partial Thromboplastin Time 24.5 sec (22.0-30.0); Prothrombin Time 11.8 sec (10.0-12.5)
[2024-06-11 00:53] LABS: ALT 36 U/L (4-34); AST 50 U/L (14-36); African American GFR (CKD) 77 (>60 ml/min/1.73 sqM); Albumin 4.4 g/dL (3.5-5.0); Alkaline Phosphatase 113 U/L (38-126); Anion Gap 9 mmol/L; Blood Urea Nitrogen 22 mg/dL (7-17); Calcium 9.9 mg/dL (8.4-10.2); Carbon Dioxide 22 mmol/L (22-30); Chloride 108 mmol/L (98-107); Glucose 120 mg/dL (74-99); Non-African American GFR(CKD) 67 (>60 ml/min/1.73 sqM); Sodium 139 mmol/L (137-145); Total Bilirubin 0.8 mg/dL (0.2-1.3); Total Protein 6.8 g/dL (6.3-8.2)
--- NOTE | 2024-06-11 01:55 | CT ---
ADDENDUM - Added by Vicky Edwards M.D. on 06/11/2024 2:01 AM (-04:00) Mild emphysematous changes. EXAM: CT Angiography Chest With Intravenous Contrast CLINICAL HISTORY: ITS.REASON CT Reason: chest pain, possible PE. Pt presents with MERA, chest pain for the past month since being released from here. Elevated dimer 4.10. Right salpingo-oophorectomy 2009(benign), lithotripsy, stents placed and removed for kidney stones. Colonoscopy 2014(next after 5yr per pt). stent placed 06/05 renal. TECHNIQUE: Axial computed tomographic angiography images of the chest with intravenous contrast. CTDI is 16.4 mGy and DLP is 205.5 mGy-cm. This CT exam was performed using one or more of the following dose reduction techniques: automated exposure control, adjustment of the mA and/or kV according to patient size, and/or use of iterative reconstruction technique. MIP reconstructed images were created and reviewed. COMPARISON: CT chest on 05/04/2024 FINDINGS: Pulmonary arteries: Unremarkable. No pulmonary embolus identified. Aorta: No acute findings. No aortic aneurysm or dissection. Lungs: Spiculated nodule in the right upper lobe measuring 1.4 cm, concerning for neoplasm. Other small nodules bilaterally raise concern for pulmonary metastases. Patchy consolidations in the right upper lobe and right middle lobe and patchy groundglass opacities throughout the right lung, concerning for infectious/inflammatory process. Right-sided bronchial wall thickening may represent bronchitis versus neoplasm. Pleural space: Unremarkable. No significant effusion. No pneumothorax. Heart: Moderate pericardial effusion. No cardiomegaly. No evidence of RV dysfunction. Thyroid: Hypodense nodule in the right thyroid lobe could be further evaluated with ultrasound if clinically indicated. Bones/joints: Degenerative changes of the spine. No acute fracture. No dislocation. Soft tissues: Unremarkable. Lymph nodes: Mass in the pretracheal region measuring approximately 3. 9 x 2.3 x 2.4 cm. This narrows the right upper lobe pulmonary artery and is concerning for neoplasm/neoplastic lymph node. Liver: Probable hemangiomas in the liver. This could be further evaluated with triple phase CT or MRI to confirm. Kidneys and ureters: Bilateral medullary nephrocalcinosis and renal stones. Renal cysts. No further follow-up necessary. IMPRESSION: 1. No pulmonary embolus identified. 2. No aortic aneurysm or dissection. 3. Slightly increased size of the mass in the pretracheal region measuring approximately 3.9 x 2.3 x 2.4 cm. This narrows the right upper lobe pulmonary artery and is concerning for neoplasm/neoplastic lymph node. 4. Similar spiculated nodule in the right upper lobe measuring 1.4 cm, concerning for neoplasm. Other small nodules bilaterally raise concern for pulmonary metastases. 5. Patchy consolidations in the right upper lobe and right middle lobe and increased patchy groundglass opacities throughout the right lung, concerning for infectious/inflammatory process. 6. Right-sided bronchial wall thickening may represent bronchitis versus neoplasm. 7. Similar moderate pericardial effusion. 8. Probable hemangiomas in the liver. This could be further evaluated with triple phase CT or MRI to confirm.
--- NOTE | 2024-06-11 02:01 | XR ---
EXAM: XR Chest, 2 Views CLINICAL HISTORY: ITS.REASON XR Reason: difficulty breathing TECHNIQUE: Frontal and lateral views of the chest. COMPARISON: Chest radiograph on 05/11/2024 FINDINGS: Hardware: None. Lungs/pleura: Increased opacities throughout the right lung. No pleural effusion or pneumothorax. Hyperinflation of the lungs. Heart/mediastinum: Normal. No cardiomegaly. Soft tissues: Unremarkable. Bones: No acute fracture. Upper abdomen: Normal. IMPRESSION: Increased opacities throughout the right lung, concerning for infectious/inflammatory process versus edema. Please see recent CT chest for more details.
[2024-06-11] MEDS: AZITHROMYCIN 500 MG TAB PO STA (03:10)
[2024-06-11 03:57] VITALS: BP 118/88; PULSE 95; RESP 18
== END 2024-06-11 04:00 | disposition home or self-care (01) ==
LOC: EC 23:10
CPT/HCPCS: 36415; 71046; 71275; 80053; 83605; 84484; 85025; 85379; 85610; 85730; 93005; 96365; 96375; 99285

== ENCOUNTER → 2024-06-14 | Outpatient (CLI) | payer OTHER ==
--- NOTE | 2024-06-15 17:37 | PE ---
EXAMINATION TYPE: PET CT fusion skull to thigh DATE OF EXAM: 06/14/2024 CLINICAL INDICATION:Female, 64 years old with history of R91.8 OTHER NONSPECIFIC ABNORMAL FINDING OF LUNG F; TECHNIQUE: Following the intravenous administration of 13.5 mCi of F-18 FDG, whole body images are performed from the skull base to the midthigh. Images are reviewed on the computer in the coronal, a xial, and sagittal planes. Reconstructed rotating images are created on independent workstation and reviewed on the computer. A non-contrast CT is performed in conjunction with the PET scan. Glucose level 97 mg/dL CT DLP: 158.24 mGycm, Automated exposure control for dose reduction was used. COMPARISON: CT 06/11/2024, 05/03/2024, 03/01/2024, 10/14/2023, PET/CT 11/17/2023, MRI: None FINDINGS: Mediastinal SUV mean is 1.9. Hepatic parenchyma SUV mean is 2.1. SKULL BASE AND NECK: No suspicious radiotracer activity. Physiologic uptake within the vocal cords. CHEST, MEDIASTINUM, AND HILAR REGION: Right upper lobe 1.9 cm spiculated nodule which is increased from prior PET/CT measuring 1.2 cm but i s stable from most recent CT. Demonstrates a maximum SUV of 7.9, previously 5.0. Linear posterior right upper lobe consolidative opacity with maximum SUV of 3.9. Stable from prior CT but new from prior PET/CT. Stable right lower lobe 9 mm pulmonary nodule which is again not FDG avid. Redemonstration several left upper lung subcentimeter pulmonary nodules from prior CT but new from pr ior PET/CT. These are too small for sensitivity of PET/CT with the largest measuring up to 4 mm. There is again patchy consolidative and groundglass opacities throughout the right and middle lobes a nd to a lesser degree within the right lower lobe. Overall these are similar to most recent CT 024 however this is increase from prior PET/CT. Demonstrates a maximum SUV of 2.0, previously 4.4. Enlarged 3.8 x 3.4 cm right paratracheal mass with hyperdense central 1.3 cm component. Overall stabl e size to most recent CT 06/11/2024 but has significantly increased in size from prior PET CT when it measured 1.5 cm. Demonstrates peripheral radiotracer uptake with a maximum SUV of 9.8. Previously 6.0 . Enlarged subcarinal lymph node measuring 1.4 cm short axis with maximum SUV of. Previously no signifi cant FDG uptake. Right paratracheal stripe 1.3 cm short axis lymph node with maximum SUV of 5.2. No significant FDG up take on prior exam. ABDOMEN AND PELVIS: No suspicious radiotracer activity. MUSCULOSKELETAL STRUCTURES: No suspicious radiotracer activity. OTHER CT: Nasal septal deviation to the right. Left carotid bulb calcification. Small to moderate siz e pericardial effusion redemonstrated. Left breast is surgically absent. Surgical clips in the left a xilla are again seen. Bilateral renal calculi redemonstrated and may represent medullary calcinosis. Right renal cyst redemonstrated. This space narrowing at L1-L2 and L5-S1 redemonstrated. Mild hyposta tic calcification of the aorta. Pelvic phleboliths. IMPRESSION: 1. Progression of disease from prior PET/CT 11/17/2023 with peripheral FDG avid mediastinal 3.8 cm mas s. Additional FDG avid enlarged metastatic mediastinal lymph nodes. Mildly increase in size and FDG a ctivity of spiculated 1.9 cm right upper lobe pulmonary nodule. Additional new subcentimeter nodules within the left upper lung from prior PET/CT but too small for PET/CT sensitivity. Concerning for met astasis. 2. Increased patchy and groundglass opacities throughout the right lung from prior PET CT with mild FDG uptake above background. This is indeterminate and can be seen with infectious/inflammatory proce ss versus neoplasm. [facility], , 06/15/2024 5:34 PM
== END | disposition home or self-care (01) ==
LOC: RADPETMAIN 06:47
PROVIDERS: ATTEND Internal Medicine Critical Care Medicine
DX: R91.8 Other nonspecific abnormal finding of lung field (principal)
CPT/HCPCS: 78815; A9552

== ENCOUNTER → 2024-07-13 | Outpatient (CLI) | payer OTHER ==
--- NOTE | 2024-07-13 20:46 | MR ---
EXAMINATION TYPE: MR brain wo/w con DATE OF EXAM: 07/13/2024 8:17 PM COMPARISON: None. CLINICAL INDICATION: Female, 64 years old with history of [id number] LUNG CANCER; [facility], Lung cancer TECHNIQUE: Multi planar, multi sequence imaging was performed through the brain including: T1, T2, In version recovery, susceptibility weighted imaging and gradient echo imaging and Diffusion weighted im aging. The patient was then given intravenous contrast and multi planar, T1 fat-saturation images wer e obtained. IV Contrast: 5 cc Gadobutrol FINDINGS: The lin-white junctions, ventricular system, basal cisterns appear unremarkable. Diffusion-weighted imaging shows no evidence of restricted diffusion to suggest acute/subacute infarct. Intracranial ar terial flow voids are maintained. Midline structures show no abnormality. Scattered foci of high T2 s ignal intensity are seen within the periventricular white matter. The susceptibility weighted images do not reveal any evidence for micro-hemorrhage. After administration of gadolinium, no abnormal enha ncement is seen. The bone marrow signal is within normal limits. Paranasal sinuses and mastoid air cells: No significant paranasal sinus disease. Visualized orbits: Orbital contents are intact. IMPRESSION: 1. No evidence of intracranial mass, acute/subacute infarct, or abnormal enhancement. 2. Nonspecific white matter changes, likely related to small vessel ischemic disease. [facility], , 07/13/2024 8:44 PM
== END | disposition home or self-care (01) ==
LOC: RADMRIMAIN 19:45
PROVIDERS: ATTEND Internal Medicine
DX: C34.90 Malignant neoplasm of unspecified part of unspecified bronchus or lung (principal); R90.82 White matter disease, unspecified
CPT/HCPCS: 70553; A9585

== ENCOUNTER → 2024-07-18 | Outpatient (CLI) | payer OTHER ==
--- NOTE | 2024-07-18 09:49 | MR ---
EXAMINATION TYPE: MR abdomen wo/w con DATE OF EXAM: 07/18/2024 8:45 AM INDICATION: Patient age:Female; 64 years old; Reason for study: C34.80 LUNG CANCER; [facility]. COMPARISON: PET CT 06/14/2024, CTA chest 06/11/2024, 05/21/2024, CT abdomen and pelvis 05/13/2022, MR liver 01/14/2020 TECHNIQUE: Multiplanar multi-sequence imaging was performed without and with IV contrast. The patien t was given 5 ccs of Gadavist intravenously and dynamic imaging was performed. Post IV contrast subtr action images were also submitted for review. FINDINGS: LOWER CHEST: Known lung cancer is better appreciated on recent PET/CT. Postsurgical changes from left mastectomy. ABDOMEN Liver: Noncirrhotic morphology. No fatty infiltration.. Couple of small T2 hyperintense thin-walled n onenhancing cysts identified. There is a T2 hyperintense 2.9 cm lesion within the central right hepat ic lobe (series 701, image 24). Additional T2 hyperintense right hepatic dome 1.7 cm lesion (series 7 01, image 56). These two lesions demonstrate peripheral nodular discontinuous enhancement with centri petal fill in. No significant change from prior MRI. Couple of 1 cm enhancing lesions identified with in the periphery of the liver. No significant change from prior MRI 2019. Gallbladder and Bile ducts: Unremarkable. Pancreas: Unremarkable. Spleen: Unremarkable. Adrenal glands: Unremarkable. Kidneys: No hydronephrosis. Bilateral T2 hyperintense thin-walled nonenhancing renal cysts measuring up to 1.8 cm redemonstrated. Stomach and Bowel: Unremarkable as visualized. Peritoneum: No evidence of pneumoperitoneum, free fluid, or adenopathy. Vasculature: Unremarkable. No aortic aneurysm. Abdominal wall: Unremarkable. Musculoskeletal: The osseous structures appear intact. Levocurvature of the thoracolumbar spine. IMPRESSION: There are 2 stable lesions within the liver compatible with benign hemangiomas. Additional few enhanc ing small foci are stable from prior MRI and are most consistent with benign hemangiomas versus vascu lar shunts. No new suspicious hepatic lesion. [facility], , 07/18/2024 9:47 AM
== END | disposition home or self-care (01) ==
LOC: RADMRIMAIN 08:00
PROVIDERS: ATTEND Internal Medicine
DX: C34.81 Malignant neoplasm of overlapping sites of right bronchus and lung (principal)
CPT/HCPCS: 74183; A9585

== ENCOUNTER 2024-08-02 09:28 | Emergency (ER) | payer OTHER ==
[2024-08-02 09:37] VITALS: RESP 18
[2024-08-02 10:04] LABS: Basophils % (A) 0 %; Eosinophils # (A) 0.2 k/uL (0-0.7); Eosinophils % (A) 2 %; HCT 38.2 % (34.0-46.0); HGB 12.2 gm/dL (11.4-16.0); Lymphocytes # (A) 0.9 k/uL (1.0-4.8); Lymphocytes % (A) 12 %; MCH 29.3 pg (25.0-35.0); MCV 91.7 fL (80.0-100.0); Mean Platelet Volume 9.1; Monocytes # (A) 0.4 k/uL (0-1.0); Monocytes % (A) 5 %; Neutrophils # (A) 5.7 k/uL (1.3-7.7); Neutrophils % (A) 79 %; Platelet Count 205 k/uL (150-450); RBC 4.16 m/uL (3.80-5.40); RDW 13.2 % (11.5-15.5); WBC 7.3 k/uL (3.8-10.6)
[2024-08-02 10:19] LABS: ALT 14 U/L (4-34); AST 19 U/L (14-36); African American GFR (CKD) 77 (>60 ml/min/1.73 sqM); Alkaline Phosphatase 108 U/L (38-126); Anion Gap 8 mmol/L; Blood Urea Nitrogen 15 mg/dL (7-17); Calcium 9.4 mg/dL (8.4-10.2); Carbon Dioxide 25 mmol/L (22-30); Chloride 107 mmol/L (98-107); Glucose 109 mg/dL (74-99); Magnesium 1.9 mg/dL (1.6-2.3); Non-African American GFR(CKD) 67 (>60 ml/min/1.73 sqM); Potassium 3.7 mmol/L (3.5-5.1); Sodium 140 mmol/L (137-145); Total Bilirubin 0.6 mg/dL (0.2-1.3); Total Protein 6.5 g/dL (6.3-8.2)
[2024-08-02 10:26] LABS: Partial Thromboplastin Time 23.2 sec (22.0-30.0); Prothrombin Time 10.7 sec (10.0-12.5)
--- NOTE | 2024-08-02 10:27 | XR ---
EXAMINATION TYPE: XR chest 2V DATE OF EXAM: 08/02/2024 CLINICAL HISTORY: Chest pain TECHNIQUE: Frontal and lateral views of the chest are obtained. COMPARISON: 06/11/2024 FINDINGS: Right suprahilar/ right paratracheal mass. Patchy infiltrate about the right hilum as well as right lower lobe which could reflect pneumonia or post obstructive pneumonia. The left lung is henok ar. Hyperinflation compatible with COPD. IMPRESSION: Right suprahilar/ right paratracheal mass. Patchy infiltrate about the right hilum as we ll as right lower lobe which could reflect pneumonia or post obstructive pneumonia. [facility], , 08/02/2024 10:25 AM
--- NOTE | 2024-08-02 11:57 | ED ---
General Adult HPI - General Chief complaint: Chest Pain Stated complaint: CHEST PAIN Time Seen by Provider: 08/02/24 09:35 Source: patient, RN notes reviewed, old records reviewed Mode of arrival: ambulatory Limitations: no limitations - History of Present Illness Initial comments: This is a 64-year-old female who presents to the emergency department co mplaining of being recently diagnosed with cancer. Patient states she saw her primary medical care doctor he did some lab work and he found that her D-dimer was elevated and she stated she was told to come to the emergency department. Patient states that she does have chest pain but she has had it ever since she had a bronchoscopy done at this hospital. Patient states is not new chest pain. Patient denies any worsening shortness of breath. Patient states she did start having some facial swelling on Tuesday and she was treated for an allergic reaction. Patient states the swelling is gone now. Patient denies any fever or chills. Patient denies any cough. Patient Nuys any leg swelling or calf tenderness. Patient is very upset that she has to be here and get any further studies. - Related Data Home Medications Medication Instructions Recorded Confirmed Budesonide-Formot 160-4.5 Mcg 2 puff INHALATION RT-BID 10/14/23 01/03/24 [Symbicort 160-4.5 Mcg Inhaler] Previous Rx's Medication Instructions Recorded Ipratropium-Albuterol Nebulize 3 ml INHALATION RT-Q4H PRN #120 10/17/23 [Duoneb 0.5 mg-3 mg/3 ml Soln] each Azithromycin [Zithromax] 0 mg PO DIRECTED #6 tab 06/11/24 HYDROcodone/APAP 5-325MG [[place]illa 1 tab PO Q4HR PRN 3 Days #18 tab 06/11/24 5-325] Allergies Allergy/AdvReac Type Severity Reaction Status Date / Time heparin (porcine) Allergy Swelling Verified 08/02/24 09:38 Review of Systems ROS Statement: Those systems with pertinent positive or pertinent negative responses have been documented in the HPI. ROS Other: All systems not noted in ROS Statement are negative. Past Medical History Past Medical History: Cancer, Eye Disorder, Renal Disease Additional Past Medical History / Comment(s): Left breast cancer 2009, kidney stones , skin cancer, glaucoma, Hepatitis C (treated years ago), and osteoporosis 2018. Followed for a pulmonary nodule. PAST TIE MAN HISTORY: She has no history of STDs. History of Any Multi-Drug Resistant Organisms: None Reported Past Surgical History: Breast Surgery Additional Past Surgical History / Comment(s): Right salpingo-oophorectomy 2010(benign), lithotripsy, stents placed and removed for kidney stones. Colonoscopy 2014(next after 5yr per pt). stent placed 06/05 renal Past Psychological History: Anxiety Smoking Status: Former smoker Past Alcohol Use History: Rare Past Drug Use History: None Reported - Past Family History Father Family Medical History: Cancer Additional Family Medical History / Comment(s): Lung cancer. Maternal cousin Family Medical History: Cancer Additional Family Medical History / Comment(s): Breast cancer. General Exam - General Exam Comments Initial Comments: GENERAL: Patient is well-developed and well-nourished. Patient is nontoxic and well- hydrated and is in no acute distress. ENT: Neck is soft and supple. No significant lymphadenopathy is noted. Oropharynx i s clear. Moist mucous membranes. Neck has full range of motion without eliciting any pain. EYES: The sclera were anicteric and conjunctiva were pink and moist. Extraocular movements were intact and pupils were equal round and reactive to light. Eyelids were unremarkable. PULMONARY: Unlabored respirations. Good breath sounds bilaterally. No audible rales rhonchi or wheezing was noted. CARDIOVASCULAR: Patient has some bilateral rhonchi ABDOMEN: Soft and nontender with normal bowel sounds. SKIN: Skin is clear with no lesions or rashes and otherwise unremarkable. NEUROLOGIC: Patient is alert and oriented x3. Cranial nerves II through XII are grossly intact. Motor and sensory are also intact. Normal speech, volume and content. Symmetrical smile. MUSCULOSKELETAL: Normal extremities with adequate strength and full range of motion. No lower extremity swelling or edema. No calf tenderness. LYMPHATICS: No significant lymphadenopathy is noted PSYCHIATRIC: Normal psychiatric evaluation. Limitations: no limitations Course Vital Signs 08/02/24 08/02/24 09:31 13:06 Temperature 97.5 F L 97.7 F Pulse Rate 96 85 Respiratory 18 18 Rate Blood Pressure 132/90 133/96 O2 Sat by Pulse 93 L 95 Oximetry Medical Decision Making - Medical Decision Making EKG is interpreted by myself. EKG shows sinus rhythm at [address] was 161 QRS i s 90 QT interval 334 QTc is 385. Patient's EKG shows no ST segment elevation or depression. Was pt. sent in by a medical professional or institution (, [facility], REAL ESTATE SERVICES ADMINISTRATOR, urgent care, hospital, or correction...) When possible be specific @ -No Did you speak to anyone other than the patient for history (EMS, parent, family, police, friend...)? What history was obtained from this source @ -No Did you review nursing and triage notes (agree or disagree)? Why? @ -I reviewed and agree with nursing and triage notes Were old charts reviewed (outside hosp., previous admission, EMS record, old EKG, old radiological studies, urgent care reports/EKG's, correction records)? Report findings @ -No old charts were reviewed Differential Diagnosis? @ -Pulmonary embolism, pneumonia, CT vena cava syndrome this is not an all- inclusive list EKG interpreted by me (3pts min.). @ -As above X-rays interpreted by me (1pt min.). @ -None done CT interpreted by me (1pt min.). @ -CT of the chest shows increased size of the perihilar mass on the right with some compression of the pulmonary veins. U/S interpreted by me (1pt. min.). @ -None done What testing was considered but not performed or refused? (CT, X-rays, U/S, labs)? Why? @ -None What meds were considered but not given or refused? Why? @ -None Did you discuss the management of the patient with other professionals (professionals i.e. , [facility], REAL ESTATE SERVICES ADMINISTRATOR, lab, RT, psych nurse, social research assistant, spring former, teacher, production officer, telehealth case manager)? Give summary @ -I spoke with Dr. Stroud and he wanted the patient to follow-up with his oncologist as scheduled Was smoking cessation discussed for >3mins.? @ -No Was critical care preformed (if so, how long)? @ -No Were there social determinants of health that impacted care today? How? (Homelessness, low income, unemployed, alcoholism, drug addiction, transportation, low edu. Level, literacy, decrease access to med. care, [facility], rehab)? @ -No Was there de-escalation of care discussed even if they declined (Discuss DNR or withdrawal of care, Hospice)? DNR status @ -No What co-morbidities impacted this encounter? (DM, HTN, Smoking, COPD, CAD, Cancer, CVA, ARF, Chemo, Hep., AIDS, mental health diagnosis, sleep apnea, morbid obesity)? @ -None Was patient admitted / discharged? Hospital course, mention meds given and route, prescriptions, significant lab abnormalities, going to OR and other pertinent info. @ -Patient had no new symptoms today but because of the elevated D-dimer she came to the hospital. Patient did not want to stay in the hospital. Patient already has an appointment with her oncologist and will follow-up with them. Patient states she will return if there is any difficulty breathing or any worsening symptoms. Undiagnosed new problem with uncertain prognosis? @ -No Drug Therapy requiring intensive monitoring for toxicity (Heparin, Nitro, Insulin, Cardizem)? @ -No Were any procedures done? @ -No Diagnosis/symptom? @ -Lung cancer Acute, or Chronic, or Acute on Chronic? @ -Chronic Uncomplicated (without systemic symptoms) or Complicated (systemic symptoms)? @ -Complicated Side effects of treatment? @ -No Exacerbation, Progression, or Severe Exacerbation? @ -No Poses a threat to life or bodily function? How? (Chest pain, [place], [place], pneumonia, PE, COPD, DKA, ARF, appy, cholecystitis, CVA, Diverticulitis, Homicidal, Suicidal, threat to staff... and all critical care pts) @ -No - Lab Data Result diagrams: 08/02/24 09:55 08/02/24 09:55 Lab Results 08/02/24 08/02/24 08/02/24 Range/Units 09:55 09:55 09:55 WBC 7.3 (3.8-10.6) k/uL RBC 4.16 (3.80-5.40) m/uL Hgb 12.2 (11.4-16.0) gm/dL Hct 38.2 (34.0-46.0) % MCV 91.7 (80.0-100.0) fL MCH 29.3 (25.0-35.0) pg MCHC 32.0 (31.0-37.0) g/dL RDW 13.2 (11.5-15.5) % Plt Count 205 (150-450) k/uL MPV 9.1 Neutrophils % 79 % Lymphocytes % 12 % Monocytes % 5 % Eosinophils % 2 % Basophils % 0 % Neutrophils # 5.7 (1.3-7.7) k/uL Lymphocytes # 0.9 L (1.0-4.8) k/uL Monocytes # 0.4 (0-1.0) k/uL Eosinophils # 0.2 (0-0.7) k/uL Basophils # 0.0 (0-0.2) k/uL PT 10.7 (10.0-12.5) sec INR 1.0 (<1.2) APTT 23.2 (22.0-30.0) sec D-Dimer 4.88 H (<0.60) mg/L FEU Sodium 140 (137-145) mmol/L Potassium 3.7 (3.5-5.1) mmol/L Chloride 107 (98-107) mmol/L Carbon Dioxide 25 (22-30) mmol/L Anion Gap 8 mmol/L BUN 15 (7-17) mg/dL Creatinine 0.92 (0.52-1.04) mg/dL Est GFR (CKD-EPI)AfAm 77 (>60 ml/min/1.73 sqM) Est GFR (CKD-EPI)NonAf 67 (>60 ml/min/1.73 sqM) Glucose 109 H (74-99) mg/dL Calcium 9.4 (8.4-10.2) mg/dL Magnesium 1.9 (1.6-2.3) mg/dL Total Bilirubin 0.6 (0.2-1.3) mg/dL AST 19 (14-36) U/L ALT 14 (4-34) U/L Alkaline Phosphatase 108 (38-126) U/L Troponin I (0.000-0.034) ng/mL Total Protein 6.5 (6.3-8.2) g/dL Albumin 4.0 (3.5-5.0) g/dL 08/02/24 Range/Units 09:55 WBC (3.8-10.6) k/uL RBC (3.80-5.40) m/uL Hgb (11.4-16.0) gm/dL Hct (34.0-46.0) % MCV (80.0-100.0) fL MCH (25.0-35.0) pg MCHC (31.0-37.0) g/dL RDW (11.5-15.5) % Plt Count (150-450) k/uL MPV Neutrophils % % Lymphocytes % % Monocytes % % Eosinophils % % Basophils % % Neutrophils # (1.3-7.7) k/uL Lymphocytes # (1.0-4.8) k/uL Monocytes # (0-1.0) k/uL Eosinophils # (0-0.7) k/uL Basophils # (0-0.2) k/uL PT (10.0-12.5) sec INR (<1.2) APTT (22.0-30.0) sec D-Dimer (<0.60) mg/L FEU Sodium (137-145) mmol/L Potassium (3.5-5.1) mmol/L Chloride (98-107) mmol/L Carbon Dioxide (22-30) mmol/L Anion Gap mmol/L BUN (7-17) mg/dL Creatinine (0.52-1.04) mg/dL Est GFR (CKD-EPI)AfAm (>60 ml/min/1.73 sqM) Est GFR (CKD-EPI)NonAf (>60 ml/min/1.73 sqM) Glucose (74-99) mg/dL Calcium (8.4-10.2) mg/dL Magnesium (1.6-2.3) mg/dL Total Bilirubin (0.2-1.3) mg/dL AST (14-36) U/L ALT (4-34) U/L Alkaline Phosphatase (38-126) U/L Troponin I <0.012 (0.000-0.034) ng/mL Total Protein (6.3-8.2) g/dL Albumin (3.5-5.0) g/dL Disposition Clinical Impression: Lung cancer Disposition: HOME SELF-CARE Condition: Good Additional Instructions: Patient should return to the emergency department as any difficulty breathing, fever, chest pain that is new, or any new symptoms. Is patient prescribed a controlled substance at d/c from ED?: No Referrals: Edison Stroud MD [Primary Care Provider] - 1-2 days Time of Disposition: 14:22
[2024-08-02 13:08] VITALS: TEMP 97.7
[2024-08-02] MEDS: KETOROLAC 15 MG/ML 1 ML VIAL IVP STA (13:09)
--- NOTE | 2024-08-02 13:12 | CT ---
EXAMINATION TYPE: CT chest angio for PE CT DLP: 200.1 mGycm, Automated exposure control for dose reduction was used. DATE OF EXAM: 08/02/2024 12:50 PM COMPARISON: Chest radiograph from same day. PET CT 06/14/2024, CT chest 05/21/2024, MR abdomen 07/18/2024 CLINICAL INDICATION:Female, 64 years old with history of Elevated D-dimer, difficulty breathing; elev ated d dimer, MERA, recent diagnosis of lung CA TECHNIQUE/CONTRAST: CTA scan of the thorax is performed with IV Contrast, patient injected with 100 mL of Isovue 370, pul monary embolism protocol. MIP images are created and reviewed. FINDINGS: Pulmonary Artery: There is no evidence for a filling defect within the pulmonary vasculature to sugge st acute pulmonary embolism. The main pulmonary artery is of normal size. Right suprahilar mass caus es encasement and significant narrowing of the right upper lobe pulmonary arteries. There is some linette rowing of the right main pulmonary artery. Lungs/Pleura: No pneumothorax. Moderate size right pleural effusion. Increased patchy groundglass opa cities throughout the right lung. Stable 5 mm pulmonary nodule along the medial aspect of the left lo wer lobe (series 406, image 78). Increased size of masslike consolidation within the right superhilar region with encasement of the right upper and middle lobe bronchi. There is some postobstructive ate lectasis. This mass measures now 6.2 x 4.6 cm, previously measured 1.9 cm. New left lower lobe peripheral 4 mm pulmonary nodule (series 406, image 117). Redemonstration of mult iple left apical pulmonary nodules measuring up to 4 mm (series 406, image 19). Relatively stable 4 m m nodule within the segment of the left lower lobe (series 406, image 42). Most subpleural reticular opacity within the medial aspect of the left lower lobe. The remaining left lung is clear. Mild centr ilobular emphysematous changes. Airway: Large airways are patent. Heart: Heart is within normal limits for size.. Small to moderate sized pericardial effusion. Vasculature: No evidence of aortic aneurysm. Mediastinum: Increased confluent mediastinal adenopathy measuring up to 4.4 cm with focal regions of hyperdensity again (series 401, image 53). Demonstrate FDG activity on prior PET/CT. Musculoskeletal: No acute osseous abnormalities. No aggressive osseous lesion. Mild multilevel degene rative disc disease. Soft Tissues: Left breast is surgically absent. Left axillary surgical clips demonstrated. Lower neck: No significant findings. Upper Abdomen: Nonobstructive bilateral renal calculi redemonstrated. Right renal cysts redemonstrate d measuring up to 2.8 cm. Several peripherally enhancing hypodense lesions identified again within th e liver measuring up to 2.3 cm which was not FDG active on prior PET/CT. Consistent with hemangiomas on recent MR. IMPRESSION: 1. No evidence of pulmonary embolism. 2. Progression of disease with increased size of right suprahilar mass and confluent mediastinal brigid opathy related to known lung cancer. Results in narrowing of the right main pulmonary artery and righ t upper lobe pulmonary arteries. Additionally there is encasement and narrowing of the right upper an d middle lobe bronchi. Redemonstration of scattered pulmonary nodules with a few new probable metasta tic pulmonary nodules from prior exam. 3. Moderate size right pleural effusion. 4. Increased patchy groundglass opacity throughout the right lung suspicious for superimposed infecti ous process. 5. Increased small to moderate size pericardial effusion. 6. Nonobstructive bilateral renal calculi. [facility], , 08/02/2024 1:10 PM
[2024-08-02] MEDS: LORazepam 2 MG/ML INJ IV STA (13:13)
[2024-08-02 14:40] VITALS: BP 136/78; PULSE 80
== END 2024-08-02 14:40 | disposition home or self-care (01) ==
LOC: EC 09:28
DX: C34.90 Malignant neoplasm of unspecified part of unspecified bronchus or lung (principal); Z87.891 Personal history of nicotine dependence; Z88.8 Allergy status to other drugs, medicaments and biological substances
CPT/HCPCS: 36415; 93005; 85379; 80053; 83735; 84484; 85025; 85610; 85730; 71046; 71275; 99285; 96374; 96375; J2060; J1885; Q9967

== ENCOUNTER 2024-08-12 12:42 | Emergency (ER) | payer OTHER ==
[2024-08-12] MEDS: MORPHINE SULFATE 4 MG/ML SYRINGE IV STA (13:20)
[2024-08-12 13:22] LABS: Basophils % (A) 0 %; Eosinophils # (A) 0.2 k/uL (0-0.7); Eosinophils % (A) 2 %; HCT 41.8 % (34.0-46.0); HGB 13.5 gm/dL (11.4-16.0); Lymphocytes # (A) 1.1 k/uL (1.0-4.8); Lymphocytes % (A) 10 %; MCHC 32.3 g/dL (31.0-37.0); MCV 89.7 fL (80.0-100.0); Mean Platelet Volume 8.9; Monocytes # (A) 0.6 k/uL (0-1.0); Monocytes % (A) 6 %; Neutrophils # (A) 8.1 k/uL (1.3-7.7); Neutrophils % (A) 80 %; Platelet Count 270 k/uL (150-450); RBC 4.66 m/uL (3.80-5.40); RDW 13.6 % (11.5-15.5); WBC 10.1 k/uL (3.8-10.6)
--- NOTE | 2024-08-12 13:33 | XR ---
EXAMINATION TYPE: XR chest 2V DATE OF EXAM: 08/12/2024 1:27 PM COMPARISON: Chest radiographs from 08/02/[address] CLINICAL INDICATION: Female, 64 years old with history of Chest Pain; TECHNIQUE: XR chest 2V Frontal and lateral views of the chest. FINDINGS: Lungs/Pleura: Right upper lung consolidation/airspace opacities more dense than prior 08/02/2024 radi ograph. There is no evidence of pleural effusion, left focal consolidation, or pneumothorax. Pulmonary vascularity: Unremarkable. Heart/mediastinum: Cardiomediastinal silhouette is unremarkable. Musculoskeletal: No acute osseous pathology. IMPRESSION: Consolidation changes in the right upper lung suspicious for mass with superimposed pneumonia as seen on prior imaging. Findings slightly less well aerated compared to prior [facility], , 08/12/2024 1:30 PM
[2024-08-12 13:35] LABS: INR 1.1 (<1.2); Partial Thromboplastin Time 24.5 sec (22.0-30.0); Prothrombin Time 11.6 sec (10.0-12.5)
[2024-08-12 13:44] LABS: ALT 13 U/L (4-34); AST 22 U/L (14-36); African American GFR (CKD) 55 (>60 ml/min/1.73 sqM); Albumin 4.1 g/dL (3.5-5.0); Alkaline Phosphatase 122 U/L (38-126); Anion Gap 13 mmol/L; Blood Urea Nitrogen 16 mg/dL (7-17); Calcium 10.1 mg/dL (8.4-10.2); Carbon Dioxide 19 mmol/L (22-30); Chloride 108 mmol/L (98-107); Glucose 117 mg/dL (74-99); Magnesium 1.9 mg/dL (1.6-2.3); Non-African American GFR(CKD) 47 (>60 ml/min/1.73 sqM); Potassium 3.6 mmol/L (3.5-5.1); Sodium 140 mmol/L (137-145); Total Bilirubin 0.6 mg/dL (0.2-1.3); Total Protein 6.9 g/dL (6.3-8.2)
--- NOTE | 2024-08-12 13:47 | ED ---
Chest Pain HPI - General Chief Complaint: Chest Pain Stated Complaint: Chest Pain Time Seen by Provider: 08/12/24 12:48 Source: patient, RN notes reviewed Mode of arrival: wheelchair Limitations: no limitations - History of Present Illness Initial Comments: This is 64-year-old female presents emergency department complaint of chest, back and arm pain. Patient states has been worsening over last several weeks she does have known lung cancer states that she is scheduled to start radiation, chemotherapy she is also scheduled to have a port placed tomorrow. She states that her pain has been increasing and was being controlled with ibuprofen and oncology check to continue with this pain control to the point where it is not controlled today. She has been seen emergency department has been seen by her oncologist for this pain. She has been cleared by cardiology states that she has no prior cardiac disease patient denies any fevers chills she states the pain is much better at rest worse with movement. Patient denies any fevers no abdominal complaints. - Related Data Home Medications Medication Instructions Recorded Confirmed Budesonide-Formot 160-4.5 Mcg 2 puff INHALATION RT-BID 10/14/23 01/03/24 [Symbicort 160-4.5 Mcg Inhaler] Previous Rx's Medication Instructions Recorded Ipratropium-Albuterol Nebulize 3 ml INHALATION RT-Q4H PRN #120 10/17/23 [Duoneb 0.5 mg-3 mg/3 ml Soln] each Azithromycin [Zithromax] 0 mg PO DIRECTED #6 tab 06/11/24 HYDROcodone/APAP 5-325MG [Packwood 1 tab PO Q4HR PRN 3 Days #18 tab 06/11/24 5-325] HYDROcodone/APAP 10-325MG [Packwood 1 tab PO Q6HR PRN 3 Days #12 tab 08/12/24 10-325] Ondansetron Odt [Zofran Odt] 4 mg PO Q8HR PRN #14 tab 08/12/24 Allergies Allergy/AdvReac Type Severity Reaction Status Date / Time heparin (porcine) Allergy Swelling Verified 08/12/24 12:44 Review of Systems ROS Statement: Those systems with pertinent positive or pertinent negative responses have been documented in the HPI. ROS Other: All systems not noted in ROS Statement are negative. EKG Findings - EKG Comments: EKG Findings:: EKG performed at 12: 55 sinus tach tachycardia rate of 128 [place] 171 QRS 83 QT/QTc 416/487 - EKG Results: EKG: interpreted by [facility] Past Medical History Past Medical History: Cancer, Eye Disorder, Renal Disease Additional Past Medical History / Comment(s): Left breast cancer 2009, kidney stones , skin cancer, glaucoma, Hepatitis C (treated years ago), and osteoporosis 2019. Followed for a pulmonary nodule. 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 History of Any Multi-Drug Resistant Organisms: None Reported Past Surgical History: Breast Surgery Additional Past Surgical History / Comment(s): Right salpingo-oophorectomy 2009(benign), lithotripsy, stents placed and removed for kidney stones. Colonoscopy 2014(next after 5yr per pt). stent placed 06/05 renal Past Psychological History: Anxiety Smoking Status: Former smoker Past Alcohol Use History: Rare Past Drug Use History: None Reported - Past Family History Father Family Medical History: Cancer Additional Family Medical History / Comment(s): Lung cancer. Maternal cousin Family Medical History: Cancer Additional Family Medical History / Comment(s): Breast cancer. General Exam Limitations: no limitations General appearance: alert, in no apparent distress Head exam: Present: atraumatic, normocephalic, normal inspection Eye exam: Present: normal appearance, PERRL, EOMI. Absent: scleral icterus, conjunctival injection, periorbital swelling ENT exam: Present: normal exam, mucous membranes moist Neck exam: Present: normal inspection. Absent: tenderness, meningismus, lymphadenopathy Respiratory exam: Present: normal lung sounds bilaterally, respiratory distress, chest wall tenderness Cardiovascular Exam: Present: regular rate, normal rhythm, tachycardia, normal heart sounds. Absent: systolic murmur, diastolic murmur, rubs, gallop, clicks GI/Abdominal exam: Present: soft, normal bowel sounds. Absent: distended, tenderness, guarding, rebound, rigid Extremities exam: Present: other (upper And lower extremity pulses equal bilaterally) Course Vital Signs 08/12/24 08/12/24 08/12/24 12:44 13:16 14:07 Temperature 97.7 F Pulse Rate 124 H 104 H 98 Respiratory 20 18 16 Rate Blood Pressure 139/83 136/98 137/90 O2 Sat by Pulse 92 L Oximetry 08/12/24 14:49 Temperature 98.4 F Pulse Rate 94 Respiratory 18 Rate Blood Pressure 143/95 O2 Sat by Pulse 98 Oximetry Chest Pain MDM - MDM Was pt. sent in by a medical professional or institution (, [facility], [employer], urgent care, hospital, or fdc...) When possible be specific @ -No Did you speak to anyone other than the patient for history (EMS, parent, family, police, friend...)? What history was obtained from this source @ -No Did you review nursing and triage notes (agree or disagree)? Why? @ -I reviewed and agree with nursing and triage notes Were old charts reviewed (outside hosp., previous admission, EMS record, old EKG, old radiological studies, urgent care reports/EKG's, fdc records)? Report findings @ -No old charts were reviewed Differential Diagnosis (chest pain, altered mental status, abdominal pain women, abdominal pain men, vaginal bleeding, weakness, fever, dyspnea, syncope, headache, dizziness, GI bleed, back pain, seizure, CVA, palpatations, mental health, musculoskeletal)? @ -Differential Chest Pain: Stable Angina, Unstable Angina, STEMI, NSTEMI Aortic Dissection, Pneumothorax, Musculoskeletal, Esophageal Spasm GERD, Cholecystitis, Pancreatitis, Zoster, this is not meant to be an all-inclusive list. EKG interpreted by me (3pts min.). @ -As above X-rays interpreted by me (1pt min.). @ -[Chest x-ray shows mass with possible obstructive process pneumonia CT interpreted by me (1pt min.). @ -None done U/S interpreted by me (1pt. min.). @ -None done What testing was considered but not performed or refused? (CT, X-rays, U/S, labs)? Why? @ -None What meds were considered but not given or refused? Why? @ -None Did you discuss the management of the patient with other professionals (professionals i.e. , PA, [employer], lab, RT, psych nurse, sexual assault social worker, account support associate, teacher, emergency response officer, rn case manager)? Give summary @ -No Was smoking cessation discussed for >3mins.? @ -No Was critical care preformed (if so, how long)? @ -No Were there social determinants of health that impacted care today? How? (Homelessness, low income, unemployed, alcoholism, drug addiction, transportation, low edu. Level, literacy, decrease access to med. care, nursing home, rehab)? @ -No Was there de-escalation of care discussed even if they declined (Discuss DNR or withdrawal of care, Hospice)? DNR status @ -No What co-morbidities impacted this encounter? (DM, HTN, Smoking, COPD, CAD, Cancer, CVA, ARF, Chemo, Hep., AIDS, mental health diagnosis, sleep apnea, morbid obesity)? @ -[Lung insulin Was patient admitted / discharged? Hospital course, mention meds given and route, prescriptions, significant lab abnormalities, going to OR and other pertinent info. @ -Discharge patient presented for increasing chest wall pain, dyspnea. Patient is scheduled for port placement tomorrow. She does feel improved after analgesics. She was offered admission but states that she would rather have analgesic meds and follow-up with her procedure mildly and oncology she will return if symptoms worsened and uncontrolled. She understands risk of leaving Undiagnosed new problem with uncertain prognosis? @ -No Drug Therapy requiring intensive monitoring for toxicity (Heparin, Nitro, Insulin, Cardizem)? @ -No Were any procedures done? @ -No Diagnosis/symptom? @ -Lung cancer, chest pain Acute, or Chronic, or Acute on Chronic? @ -Acute Uncomplicated (without systemic symptoms) or Complicated (systemic symptoms)? @ -Complicated Side effects of treatment? @ -No Exacerbation, Progression, or Severe Exacerbation? @ -No Poses a threat to life or bodily function? How? (Chest pain, USA, PA, pneumonia, PE, COPD, DKA, ARF, appy, cholecystitis, CVA, Diverticulitis, Homicidal, Suicidal, threat to staff... and all critical care pts) @ -Yes lung cancer Disposition Clinical Impression: Chest wall pain, Lung cancer Disposition: HOME SELF-CARE Condition: Fair Instructions (If sedation given, give patient instructions): Chest Pain (ED) Additional Instructions: Please return to the Emergency Department if symptoms worsen or any other concerns. Prescriptions: HYDROcodone/APAP 10-325MG [Packwood 10-325] 1 tab PO Q6HR PRN 3 Days #12 tab PRN Reason: Nausea Ondansetron Odt [Zofran Odt] 4 mg PO Q8HR PRN #14 tab PRN Reason: Nausea Is patient prescribed a controlled substance at d/c from ED?: No Referrals: Edison Stroud MD [Primary Care Provider] - 1-2 days Time of Disposition: 14:44
[2024-08-12 13:53] LABS: NT-Pro-B-Type Natriuretic Pept 226 pg/mL
[2024-08-12] MEDS: SODIUM CHLORIDE 0.9% 1,000 ML IV ONE (14:06)
[2024-08-12 14:52] VITALS: BP 143/95; PULSE 94; RESP 18; TEMP 98.4
== END 2024-08-12 15:01 | disposition home or self-care (01) ==
LOC: EC 12:42
DX: C34.90 Malignant neoplasm of unspecified part of unspecified bronchus or lung (principal); R00.0 Tachycardia, unspecified; Z87.891 Personal history of nicotine dependence; Z88.8 Allergy status to other drugs, medicaments and biological substances
CPT/HCPCS: 36415; 93005; 83880; 80053; 83735; 84484; 85025; 85610; 85730; 71046; 99285; 96374; 96361; J2270

== ENCOUNTER 2024-08-22 08:49 | Inpatient (IN) | payer OTHER ==
--- NOTE | 2024-08-22 09:49 | ED ---
Weakness HPI - General Chief complaint: Nausea/Vomiting/Diarrhea Stated complaint: vomitting/cancer pt Time Seen by Provider: 08/22/24 09:24 Source: patient, RN notes reviewed Mode of arrival: wheelchair Limitations: no limitations - History of Present Illness Initial comments: This is a 64-year-old female who presents to the emergency department for chest pain, shortness of breath, nausea, vomiting, and weakness. Patient has lung cancer and is currently undergoing radiation treatment. States that she is scheduled to start chemotherapy but has not yet received any treatment. She had a bronchoscopy done here in May and her states that she has essentially been declining since. She continues to have pain in the chest that seems to be getting worse as well as increasing shortness of breath. She does not wear oxygen at home. She has been unable to eat or drink anything as a result of the pain and associated nausea and vomiting. The nausea and vomiting is not controlled with Zofran and the pain is not controlled with the pain medication she has. - Related Data Home Medications Medication Instructions Recorded Confirmed Budesonide-Formot 160-4.5 Mcg 2 puff INHALATION RT-BID PRN 10/14/23 08/22/24 [Symbicort 160-4.5 Mcg Inhaler] Albuterol Inhaler [Ventolin Hfa 2 puff INHALATION RT-QID PRN 08/22/24 08/22/24 Inhaler] Ipratropium-Albuterol Nebulize 3 ml INHALATION RT-QID PRN 08/22/24 08/22/24 [Duoneb 0.5 mg-3 mg/3 ml Soln] Ondansetron Odt [Zofran Odt] 8 mg PO Q8H PRN 08/22/24 08/22/24 Pantoprazole [Protonix] 40 mg PO BID 08/22/24 08/22/24 Previous Rx's Medication Instructions Recorded HYDROcodone/APAP 10-325MG [Collins 1 tab PO Q6HR PRN 3 Days #12 tab 08/12/24 10-325] Allergies Allergy/AdvReac Type Severity Reaction Status Date / Time heparin (porcine) Allergy Swelling Verified 08/22/24 11:44 Review of Systems ROS Statement: Those systems with pertinent positive or pertinent negative responses have been documented in the HPI. ROS Other: All systems not noted in ROS Statement are negative. Past Medical History Past Medical History: Cancer, Eye Disorder, Renal Disease Additional Past Medical History / Comment(s): Left breast cancer 2010, kidney [facility] , skin cancer, glaucoma, Hepatitis C (treated years ago), and osteoporosis 2018. Followed for a pulmonary nodule. 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 Lung Ca History of Any Multi-Drug Resistant Organisms: None Reported Past Surgical History: Breast Surgery Additional Past Surgical History / Comment(s): Right salpingo-oophorectomy 2009(benign), lithotripsy, stents placed and removed for kidney stones. Col onoscopy 2014(next after 5yr per pt). stent placed 06/05 renal Past Psychological History: Anxiety Smoking Status: Former smoker Past Alcohol Use History: Rare Past Drug Use History: None Reported - Past Family History Father Family Medical History: Cancer Additional Family Medical History / Comment(s): Lung cancer. Maternal cousin Family Medical History: Cancer Additional Family Medical History / Comment(s): Breast cancer. General Exam Limitations: no limitations General appearance: alert Head exam: Present: atraumatic, normocephalic, normal inspection Respiratory exam: Present: rhonchi, decreased breath sounds, prolonged expiratory Cardiovascular Exam: Present: normal rhythm, tachycardia GI/Abdominal exam: Present: soft, normal bowel sounds. Absent: distended, tenderness, guarding, rebound, rigid Neurological exam: Present: alert, oriented X3, CN II-XII intact Psychiatric exam: Present: normal affect, normal mood Skin exam: Present: warm, dry, intact, normal color. Absent: rash Course Vital Signs 08/22/24 08/22/24 08/22/24 09:15 11:49 12:00 Temperature 98.2 F Pulse Rate 110 H 96 Respiratory 20 16 Rate Blood Pressure 112/78 118/84 O2 Sat by Pulse 90 L 93 L 96 Oximetry 08/22/24 16:20 Temperature 98.1 F Pulse Rate 99 Respiratory 18 Rate Blood Pressure 120/76 O2 Sat by Pulse 94 L Oximetry Medical Decision Making - Medical Decision Making This is a 64-year-old female who presents to the emergency department for nausea, vomiting, chest pain, and shortness of breath. Was pt. sent in by a medical professional or institution? @ -No Did you speak to anyone other than the patient for history? @ -No Did you review nursing and triage notes? @ -Yes, and I agree, it is accurate with regards to the patient's symptoms. Were old charts reviewed? @ -No Differential Diagnosis? @ -Differential Nausea and Vomiting: Gastroenteritis, cholecystitis, appendicitis, pancreatitis, migraine, benign positional vertigo, food borne illness, pyelonephritis, irritable bowel syndrome, influenza, Covid, GERD, incarcerated hernia, intestinal obstruction, this is not meant to be an all-inclusive list. EKG interpreted by me (3pts min.)? @ -EKG interpreted by me demonstrating the following: Sinus tachycardia. Ventricular rate 103 bpm, AK interval 162 ms, QRS duration 106 ms, QTc 389 ms. X-rays interpreted by me (1pt min.)? @ -Not obtained CT interpreted by me (1pt min.)? @ -CTA of the chest obtained. My interpretation identifies no evidence of a pulmonary embolus. U/S interpreted by me (1pt. min.)? @ -Not obtained What testing was considered but not performed? (CT, X-rays, U/S, labs)? Why? @ -None What meds were considered but not given? Why? @ -None Did you discuss the management of the patient with other professionals? @ -Yes, Dr. Stroud, who accepts the patient for admission. Did you reconcile home meds? @ -No Was smoking cessation discussed for >3mins.? @ -No Was critical care preformed (if so, how long)? @ -No Were there social determinants of health that impacted care today? How? (Homelessness, low income, unemployed, alcoholism, drug addiction, transportation, low edu. Level, literacy, decrease access to med. care, [facility], rehab)? @ -No Was there de-escalation of care discussed even if they declined? (Discuss DNR or withdrawal of care, Hospice)? @ -No What co-morbidities impacted this encounter? (DM, HTN, Smoking, COPD, CAD, Cancer, CVA, Hep., AIDS, mental health diagnosis, sleep apnea, morbid obesity)? @ -Lung cancer Was patient admitted / discharged? @ -Admitted. Lab work demonstrates mild leukocytosis and was otherwise unremarkable. We obtained a CTA of the chest for further evaluation of her ongoing symptoms. No evidence of a pulmonary embolus was identified. She was found to have progression of disease with concern for SVC obstruction from surrounding confluent adenopathy/lung mass. She also has an increased moderate to right size large pleural effusion and similar groundglass opacities throughout the right lung with new patchy groundglass opacities in the left lower lobe concerning for infectious process versus pulmonary edema. BNP only 216. Given concern for superimposed infectious process, she was started on the pneumonia protocol with ceftriaxone and azithromycin. Patient admitted to medicine for failure to thrive/increasing weakness, pneumonia, and SVC obstruction. Consult placed for hem/onc and pulmonology. Case discussed with ED attending Dr. Isbell. Undiagnosed new problem with uncertain prognosis? @ -None Drug Therapy requiring intensive monitoring for toxicity (Heparin, Nitro, Insulin, Cardizem)? @ -None Were any procedures done? @ -None Diagnosis/symptom? @ -Failure to thrive, pneumonia, SVC obstruction Acute, or Chronic, or Acute on Chronic? @ -Acute Uncomplicated (without systemic symptoms) or Complicated (systemic symptoms)? @ -Complicated Side effects of treatment? @ -None Exacerbation, Progression, or Severe Exacerbation] @ -Not applicable Poses a threat to life or bodily function? @ -Yes, can lead to respiratory failure - Lab Data Result diagrams: 08/22/24 09:55 08/22/24 09:55 Lab Results 08/22/24 08/22/24 08/22/24 Range/Units 09:55 09:55 09:55 WBC 11.2 H (3.8-10.6) k/uL RBC 4.23 (3.80-5.40) m/uL Hgb 12.3 (11.4-16.0) gm/dL Hct 38.7 (34.0-46.0) % MCV 91.4 (80.0-100.0) fL MCH 29.1 (25.0-35.0) pg MCHC 31.8 (31.0-37.0) g/dL RDW 13.7 (11.5-15.5) % Plt Count 350 (150-450) k/uL MPV 8.6 Neutrophils % 90 % Lymphocytes % 4 % Monocytes % 5 % Eosinophils % 1 % Basophils % 0 % Neutrophils # 10.1 H (1.3-7.7) k/uL Lymphocytes # 0.4 L (1.0-4.8) k/uL Monocytes # 0.6 (0-1.0) k/uL Eosinophils # 0.1 (0-0.7) k/uL Basophils # 0.0 (0-0.2) k/uL Hypochromasia Slight PT 16.5 H (10.0-12.5) sec INR 1.6 H (<1.2) APTT 28.4 (22.0-30.0) sec Sodium 136 L (137-145) mmol/L Potassium 4.5 (3.5-5.1) mmol/L Chloride 97 L (98-107) mmol/L Carbon Dioxide 26 (22-30) mmol/L Anion Gap 13 mmol/L BUN 22 H (7-17) mg/dL Creatinine 0.90 (0.52-1.04) mg/dL Est GFR (CKD-EPI)AfAm 79 (>60 ml/min/1.73 sqM) Est GFR (CKD-EPI)NonAf 69 (>60 ml/min/1.73 sqM) Glucose 121 H (74-99) mg/dL Plasma Lactic Acid Travon (0.7-2.0) mmol/L Calcium 10.2 (8.4-10.2) mg/dL Magnesium 1.8 (1.6-2.3) mg/dL Total Bilirubin 0.7 (0.2-1.3) mg/dL AST 21 (14-36) U/L ALT 15 (4-34) U/L Alkaline Phosphatase 131 H (38-126) U/L Troponin I (0.000-0.034) ng/mL NT-Pro-B Natriuret Pep 216 pg/mL Total Protein 6.5 (6.3-8.2) g/dL Albumin 4.0 (3.5-5.0) g/dL Amylase 66 (30-110) U/L Lipase 50 (23-300) U/L Influenza Type A (PCR) (Not Detectd) Influenza Type B (PCR) (Not Detectd) RSV (PCR) (Not Detectd) SARS-CoV-2 (PCR) (Not Detectd) 08/22/24 08/22/24 08/22/24 Range/Units 09:55 09:55 09:55 WBC (3.8-10.6) k/uL RBC (3.80-5.40) m/uL Hgb (11.4-16.0) gm/dL Hct (34.0-46.0) % MCV (80.0-100.0) fL MCH (25.0-35.0) pg MCHC (31.0-37.0) g/dL RDW (11.5-15.5) % Plt Count (150-450) k/uL MPV Neutrophils % % Lymphocytes % % Monocytes % % Eosinophils % % Basophils % % Neutrophils # (1.3-7.7) k/uL Lymphocytes # (1.0-4.8) k/uL Monocytes # (0-1.0) k/uL Eosinophils # (0-0.7) k/uL Basophils # (0-0.2) k/uL Hypochromasia PT (10.0-12.5) sec INR (<1.2) APTT (22.0-30.0) sec Sodium (137-145) mmol/L Potassium (3.5-5.1) mmol/L Chloride (98-107) mmol/L Carbon Dioxide (22-30) mmol/L Anion Gap mmol/L BUN (7-17) mg/dL Creatinine (0.52-1.04) mg/dL Est GFR (CKD-EPI)AfAm (>60 ml/min/1.73 sqM) Est GFR (CKD-EPI)NonAf (>60 ml/min/1.73 sqM) Glucose (74-99) mg/dL Plasma Lactic Acid Travon 1.4 (0.7-2.0) mmol/L Calcium (8.4-10.2) mg/dL Magnesium (1.6-2.3) mg/dL Total Bilirubin (0.2-1.3) mg/dL AST (14-36) U/L ALT (4-34) U/L Alkaline Phosphatase (38-126) U/L Troponin I <0.012 (0.000-0.034) ng/mL NT-Pro-B Natriuret Pep pg/mL Total Protein (6.3-8.2) g/dL Albumin (3.5-5.0) g/dL Amylase (30-110) U/L Lipase (23-300) U/L Influenza Type A (PCR) Not Detected (Not Detectd) Influenza Type B (PCR) Not Detected (Not Detectd) RSV (PCR) Not Detected (Not Detectd) SARS-CoV-2 (PCR) Not Detected (Not Detectd) - Radiology Data Radiology results: report reviewed, image reviewed Disposition Clinical Impression: SVC (superior vena cava obstruction), Pneumonia, Failure to thrive Disposition: ADMITTED IP TO THIS HOSP
[2024-08-22] MEDS: SODIUM CHLORIDE 0.9% 1,000 ML IV STA (10:00)
[2024-08-22] MEDS: METOCLOPRAMIDE 5 MG/ML 2 ML VIAL IVP STA (10:01)
[2024-08-22] MEDS: PANTOPRAZOLE 40 MG/10 ML VIAL IVP STA (10:01)
[2024-08-22] MEDS: HYDROmorphone 1 MG/ML 1 ML SYRINGE IVP STA (10:01)
[2024-08-22 10:24] LABS: Basophils % (A) 0 %; Eosinophils # (A) 0.1 k/uL (0-0.7); Eosinophils % (A) 1 %; HCT 38.7 % (34.0-46.0); HGB 12.3 gm/dL (11.4-16.0); Hypochromasia Slight; Lymphocytes # (A) 0.4 k/uL (1.0-4.8); Lymphocytes % (A) 4 %; MCH 29.1 pg (25.0-35.0); MCHC 31.8 g/dL (31.0-37.0); MCV 91.4 fL (80.0-100.0); Mean Platelet Volume 8.6; Monocytes # (A) 0.6 k/uL (0-1.0); Monocytes % (A) 5 %; Neutrophils # (A) 10.1 k/uL (1.3-7.7); Neutrophils % (A) 90 %; Platelet Count 350 k/uL (150-450); RBC 4.23 m/uL (3.80-5.40); RDW 13.7 % (11.5-15.5); WBC 11.2 k/uL (3.8-10.6)
[2024-08-22 10:28] LABS: INR 1.6 (<1.2); Partial Thromboplastin Time 28.4 sec (22.0-30.0); Prothrombin Time 16.5 sec (10.0-12.5)
[2024-08-22 10:33] LABS: ALT 15 U/L (4-34); AST 21 U/L (14-36); African American GFR (CKD) 79 (>60 ml/min/1.73 sqM); Alkaline Phosphatase 131 U/L (38-126); Amylase 66 U/L (30-110); Anion Gap 13 mmol/L; Blood Urea Nitrogen 22 mg/dL (7-17); Calcium 10.2 mg/dL (8.4-10.2); Carbon Dioxide 26 mmol/L (22-30); Chloride 97 mmol/L (98-107); Glucose 121 mg/dL (74-99); Lipase 50 U/L (23-300); Magnesium 1.8 mg/dL (1.6-2.3); Non-African American GFR(CKD) 69 (>60 ml/min/1.73 sqM); Potassium 4.5 mmol/L (3.5-5.1); Sodium 136 mmol/L (137-145); Total Bilirubin 0.7 mg/dL (0.2-1.3); Total Protein 6.5 g/dL (6.3-8.2)
[2024-08-22 10:41] LABS: NT-Pro-B-Type Natriuretic Pept 216 pg/mL
--- NOTE | 2024-08-22 10:45 | CT ---
EXAMINATION TYPE: CT chest angio for PE CT DLP: 235.6 mGycm, Automated exposure control for dose reduction was used. DATE OF EXAM: 08/22/2024 10:23 AM COMPARISON: Chest radiograph 08/12/2024, CTA chest 08/02/2024, PET CT 06/14/2024, CT chest 05/21/2024, CLINICAL INDICATION:Female, 64 years old with history of Chest pain, MERA, lung cancer patient; Lung C a. MERA TECHNIQUE/CONTRAST: CTA scan of the thorax is performed with IV Contrast, patient injected with 71 mL of Isovue 370, pulm onary embolism protocol. MIP images are created and reviewed. FINDINGS: Pulmonary Artery: There is no evidence for a filling defect within the pulmonary vasculature to sugge st acute pulmonary embolism. The main pulmonary artery is of normal size. Right suprahilar mass caus es encasement and significant narrowing of the right upper lobe pulmonary arteries again. There is so me narrowing of the right main pulmonary artery again. Lungs/Pleura: No pneumothorax. Increased moderate to large size right pleural effusion. Increased siz e of masslike consolidation within the right superhilar region with encasement of the right upper and middle lobe bronchi. This mass measures now 8.6 x 6.9, previously 6.2 x 4.6 cm. Redemonstration of p atchy groundglass opacities within the remaining right lung which is somewhat similar to prior exam. Increased patchy groundglass opacities along the dependent portion of the left lower lobe. Several st able pulmonary nodules throughout the left lung. Most prominently within the left apex. These measure up to 5 mm. Mild centrilobular emphysematous changes. Airway: Large airways are patent. Heart: Heart is within normal limits for size.. Small to moderate sized pericardial effusion redemons trated. Vasculature: No evidence of aortic aneurysm. Interval placement of right chest wall. IJ Mediport with distal tip of catheter terminating in the right atrium. Multiple collateral vessels are demonstrated throughout the right chest soft tissues. Prominent contrast enhancement extending into the IVC. Mediastinum: Similar confluent mediastinal adenopathy with focal regions of hyperdensity again. Demon strated FDG activity on prior PET/CT. This encases the SVC. Musculoskeletal: No acute osseous abnormalities. No aggressive osseous lesion. Mild multilevel degene rative disc disease. Soft Tissues: Left breast is surgically absent. Left axillary surgical clips demonstrated. Lower neck: No significant findings. Upper Abdomen: Nonobstructive bilateral renal calculi redemonstrated. Right renal cysts redemonstrate d measuring up to 2.8 cm. Several hypodense lesions identified again within the liver measuring up to 2.3 cm which was not FDG active on prior PET/CT. Consistent with hemangiomas on recent MR. Focal wed ge-shaped enhancement adjacent to the gallbladder fossa again likely related to transient hepatic att enuation difference. IMPRESSION: 1. No evidence of pulmonary embolism. 2. Progression of disease with increased size of right suprahilar mass and confluent mediastinal brigid opathy related to known lung cancer. Results in narrowing of the right main pulmonary artery and righ t upper lobe pulmonary arteries. Additionally there is encasement and narrowing of the right upper an d middle lobe bronchi. Redemonstration of scattered probable metastatic pulmonary nodules. There are multiple collateral vessels identified within the right chest soft tissues concerning for SVC obstruc tion from surrounding confluent adenopathy/lung mass. 3. Increased moderate to large sized right pleural effusion. 4. Similar patchy groundglass opacities throughout the right lung with new patchy groundglass opaciti es within the left lower lobe concerning for superimposed infectious process versus pulmonary edema. 5. Similar small to moderate size pericardial effusion. 6. Nonobstructive bilateral renal calculi. [facility], , 08/22/2024 10:43 AM
[2024-08-22] MEDS ORDERED: PNEUMONIA PROTOCOL UTILIZED 1 EACH MISC PO PRN (11:11)
[2024-08-22] MEDS ORDERED: NALOXONE 0.4 MG/ML 1 ML VIAL IV PRN (11:25)
[2024-08-22] MEDS ORDERED: ACETAMINOPHEN TAB 325 MG TAB PO PRN (11:26)
[2024-08-22] MEDS ORDERED: HYDROmorphone 0.5 MG/0.5 ML SYRINGE IVP PRN (11:26)
[2024-08-22] MEDS: HYDROmorphone 1 MG/ML 1 ML SYRINGE IVP PRN (12:03)
[2024-08-22] MEDS: AZITHROMYCIN 500 MG in SODIUM CHLORIDE 0.9% 250 ML IVPB STA (12:26)
--- NOTE | 2024-08-23 00:26 | US ---
EXAMINATION TYPE: US chest DATE OF EXAM: 08/22/2024 COMPARISON: CT 08/22/24 CLINICAL INDICATION: Female, 64 years old with history of right pleural effusion; Right pleural effus ion seen on CT TECHNIQUE: Grayscale imaging of the chest. Targeted ultrasound of the posterior lower right hemithor ax FINDINGS: EXAM MEASUREMENTS: Right Pleural Effusion pocket size: 2.5 cm Right skin surface to fluid distance: 11.6 cm Right side marked for possible thoracentesis outside the dept. Pulmonologists are able to review the images in the patient?s EMR. IMPRESSIONS: Moderate to large size right pleural effusion is redemonstrated [facility], , 08/23/2024 12:24 AM
[2024-08-23] MEDS: ONDANSETRON 4 MG/2 ML VIAL IVP PRN (00:29)
--- NOTE | 2024-08-23 06:59 | P.CNPUL ---
History of Present Illness Consult date: 08/23/24 Requesting physician: Lorin Fall Reason for consult: lung mass Chief complaint: Nausea, dry heaves, shortness of breath History of present illness: Patient is a 64-year-old female with past medical history significant for previous breast cancer, hepatitis C, metastatic pulmonary adenocarcinoma, COPD, and former tobacco dependence. She has been following with Dr. Ramos in the pulmonary office up until May of this year. She had multiple right lung nodules with suspicious enlarged mediastinal lymph nodes. Per the office note, she did not want to have biopsy until after February 15, 2024. On 05/03/2024 Dr. Dubois did perform navigational bronchoscopy with biopsies of 2 right upper lobe pulmonary nodules, right upper lobe consolidation, and with EBUS biopsies of station 4R. Pathology of the right upper lobe nodules were both positive for pulmonary adenocarcinoma. The biopsy lymph node were nondiagnostic. Follow-up PET scan showing disease progression from prior PET scan done 11/17/2023 with peripheral FDG mediastinal 3.8 cm mass. Enlarging FDG avid mediastinal lymph no pascale. Mildly increase in size and FDG activity of the previously biopsied 1.9 cm right upper lobe pulmonary nodule. Additional new subcentimeter nodules within the left upper lung concerning for contralateral lung metastasis. As well as, increased patchy and groundglass opacities throughout the right lung with mild FDG uptake. It has since become established with radiation oncology, reportedly started radiation last week and has had 2 rounds. She has an appointment with an oncologist this Tuesday. She has not started chemotherapy yet. Patient presented to the ED yesterday morning complaining of chiefly reduced appetite, nausea, and dry heaves. She is also reporting some worsening shortness of breath over the last week accompanied with substernal chest pain. She was found to be hypoxic and placed on 2 L/min nasal cannula. Reportedly does not wear home O2. Chest CTA did not show any evidence of filling defects consistent with pulmonary emboli. There was progression of disease with increased size of right suprahilar mass and confluent mediastinal adenopathy related to known lung cancer. Results in narrowing of the right main pulmonary artery and right upper lobe pulmonary arteries. Additionally, there is encasement narrowing of the right upper and middle lobe bronchi. Redemonstration of scattered probable metastatic pulmonary nodules. There are multiple collateral vessels identified within the right chest and soft tissues concerning for SVC obstruction, with surrounding confluent adenopathy/mass. There was increased moderate to large size right pleural effusion. Similar groundglass patchy opacities throughout the right lung with new patchy groundglass opacities within the left lower lobe concerning for superimposed infectious process versus pulmonary edema. Similar small to moderate-sized pericardial effusion. I am evaluating this patient in room 517, she is on 2 L/min nasal cannula. In any respiratory distress at rest. Denies any infectious-like symptoms such as cough, sputum production, fevers or chills. She has prominent chest veins neck veins. Admits facial and chest flushing. No obvious facial swelling or arm swelling. No voice hoarseness. No stridor. She was placed on empiric antibiotics in the ED. She has remained afebrile. CBC: WBC count 11.2, hemoglobin 12.3, hematocrit 30.7, platelets 350. CMP: Sodium 136, potassium 4.5, chloride 97, serum bicarb 26, BUN 22, creatinine 0.9, glucose 121. LFTs fairly unremarkable. Troponin less than 0.012. NT proBNP 216. Viral screen negative for influenza, RSV, COVID. After prolonged conversation with this patient, she mentioned that she does not want to follow-up with her current renal case manager any longer. She would like to see a different renal case manager. Review of Systems Constitutional: Reports fatigue, Reports poor appetite, Reports weight loss, Denies chills, Denies fever, Denies weight gain Ears, nose, mouth and throat: Denies dysphagia, Denies hoarseness, Denies nasal congestion, Denies nasal discharge, Denies neck fullness/pressure, Denies neck lump, Denies post-nasal drip, Denies sinus pain, Denies sinus pressure, Denies swelling in mouth, Denies swelling in throat, Denies sore throat, Denies voice c hanges Cardiovascular: Reports chest pain, Reports dyspnea on exertion, Denies leg edema, Denies lightheadedness, Denies orthopnea, Denies palpitations, Denies paroxysmal nocturnal dyspnea, Denies syncope Respiratory: Reports congestion, Reports dyspnea, Reports pain on inspiration, Denies cough, Denies cough with sputum, Denies excessive sputum, Denies hemoptysis, Denies home oxygen, Denies wheezing Gastrointestinal: Reports loss of appetite, Reports nausea, Denies abdominal pain, Denies change in bowel habits, Denies constipation, Denies diarrhea, Denies hematochezia, Denies melena, Denies vomiting Genitourinary: Denies dysuria Musculoskeletal: Denies limitation of motion Integumentary: Reports color changes, Denies rash Neurological: Denies balance difficulties, Denies confusion, Denies head injury, Denies headaches, Denies seizures, Denies syncope, Denies visual changes Psychiatric: Denies anxiety, Denies depression Past Medical History Past Medical History: Cancer, Eye Disorder, Renal Disease Additional Past Medical History / Comment(s): Left breast cancer 2009, kidney stones , skin cancer, glaucoma, Hepatitis C (treated years ago), and osteoporosis 2019. Followed for a pulmonary nodule. 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 Lung Ca diagnosed in 2022-currently receiving radiation History of Any Multi-Drug Resistant Organisms: None Reported Past Surgical History: Breast Surgery Additional Past Surgical History / Comment(s): Right salpingo-oophorectomy 2009(benign), lithotripsy, stents placed and removed for kidney stones. Colonoscopy 2014. Left breast mastectomy. Right chest infusaport. Bronchoscopy Jun 07, 2024-Lung biopsy Past Anesthesia/Blood Transfusion Reactions: Postoperative Nausea & Vomiting (PONV) Past Psychological History: Anxiety Smoking Status: Former smoker Past Alcohol Use History: Rare Additional Past Alcohol Use History / Comment(s): Quit smoking in 2018. Previous heavy alcohol use as a teenager. Past Drug Use History: None Reported - Past Family History Father Family Medical History: Cancer Additional Family Medical History / Comment(s): Lung cancer. Maternal cousin Family Medical History: Cancer Additional Family Medical History / Comment(s): Breast cancer. Medications and Allergies Home Medications Medication Instructions Recorded Confirmed Type Budesonide-Formot 160-4.5 Mcg 2 puff INHALATION RT-BID PRN 10/14/23 08/22/24 History [Symbicort 160-4.5 Mcg Inhaler] HYDROcodone/APAP 10-325MG [[place] 1 tab PO Q6HR PRN 3 Days #12 tab 08/12/24 08/22/24 Rx 10-325] Albuterol Inhaler [Ventolin Hfa 2 puff INHALATION RT-QID PRN 08/22/24 08/22/24 History Inhaler] Ipratropium-Albuterol Nebulize 3 ml INHALATION RT-QID PRN 08/22/24 08/22/24 History [Duoneb 0.5 mg-3 mg/3 ml Soln] Ondansetron Odt [Zofran Odt] 8 mg PO Q8H PRN 08/22/24 08/22/24 History Pantoprazole [Protonix] 40 mg PO BID 08/22/24 08/22/24 History Allergies Allergy/AdvReac Type Severity Reaction Status Date / Time heparin (porcine) Allergy Swelling Verified 08/22/24 11:44 Physical Exam Vitals: Vital Signs Temp Pulse Pulse Resp BP BP Pulse Ox 08/22/24 19:29 98.3 F 100 16 132/87 92 L 08/22/24 16:55 97.6 F 106 H 18 130/85 92 L 08/22/24 16:20 98.1 F 99 18 120/76 94 L 08/22/24 12:00 96 16 118/84 96 08/22/24 11:49 93 L 08/22/24 09:15 98.2 F 110 H 20 112/78 90 L Intake and Output 08/22/24 08/22/24 08/23/24 14:59 22:59 06:59 Other: Voiding Method Toilet Weight 45.359 kg 45.359 kg GENERAL EXAM: Alert, 64-year-old white female, resting in bed on 2 L/min nasal cannula, comfortable in no apparent distress. HEAD: Normocephalic and atraumatic. He is facial swelling EYES: Normal reaction of pupils, equal size. NOSE: Clear with pink turbinates. THROAT: No erythema or exudates. NECK: No masses, no JVD. CHEST: No chest wall deformity. Radiation marking LUNGS: Equal air entry with diminished right posterior lung sounds and scattered rhonchi/crackles throughout the remaining right lung, left lung is clear without adventitious lung sounds. On 2 L/min nasal cannula. No conversational dyspnea or accessory muscle use while at rest CVS: S1 and S2 normal with no audible murmur, regular rhythm. No extra heart sounds ABDOMEN: No hepatosplenomegaly, active bowel sounds, no guarding or rigidity. SPINE: No scoliosis or deformity SKIN: No rashes CENTRAL NERVOUS SYSTEM: No focal deficits, tone is normal in all 4 extremities. EXTREMITIES: There is no peripheral edema, clubbing, or cyanosis. Peripheral pulses are intact. Results - Laboratory Findings CBC and BMP: 08/22/24 09:55 08/22/24 09:55 PT/INR, D-dimer PT 16.5 sec (10.0-12.5) H 08/22/24 09:55 INR 1.6 (<1.2) H 08/22/24 09:55 Abnormal lab findings: Abnormal Labs 08/22/24 08/22/24 08/22/24 09:55 09:55 09:55 WBC 11.2 H Neutrophils # 10.1 H Lymphocytes # 0.4 L PT 16.5 H INR 1.6 H Sodium 136 L Chloride 97 L BUN 22 H Glucose 121 H Alkaline Phosphatase 131 H - Diagnostic Findings CT scan - chest: image reviewed Assessment and Plan Assessment: Metastatic pulmonary adenocarcinoma with disease progression, follow-up chest CTA did not show any evidence of filling defects consistent with pulmonary emboli. There was progression of disease with increased size of right suprahilar mass and confluent mediastinal adenopathy related to known lung cancer. Results in narrowing of the right main pulmonary artery and right upper lobe pulmonary arteries. Additionally, there is encasement narrowing of the right upper and middle lobe bronchi. Redemonstration of scattered probable metastatic pulmonary nodules. There are multiple collateral vessels identified within the right chest soft tissues concerning for SVC obstruction from surrounding confluent adenopathy/mass. There was increased moderate to large size right pleural effusion. Similar groundglass patchy opacities throughout the right lung with new patchy groundglass opacities within the left lower lobe concerning for superimposed infectious process versus pulmonary edema. Similar small to moderate-sized pericardial effusion. Moderate to large right-sided pleural effusion, likely malignant Acute hypoxemic respiratory failure, currently on 2 L/min nasal cannula, likely secondary to above Suspect SVC syndrome Chronic obstructive pulmonary disease Former tobacco dependence History of breast cancer History of hepatitis C, reportedly treated previous Plan: Patient's medications, labs, imaging reviewed Continue supplemental oxygen to mean oxygen saturation of 92% or greater Patient has a moderate to large right-sided pleural effusion, will obtain chest ultrasound with markings for potential therapeutic/diagnostic thoracentesis Concern for possible SVC obstruction. No immediate threat to upper airway Both medical and radiation oncology have been consulted Started radiation treatments last week, reportedly is underwent 2 rounds States that she has initial appointment with an oncologist this Tuesday. Has not started chemotherapy yet Patient was started on antibiotics in the emergency department, could likely be discontinued if normal procalcitonin After evaluating the patient she noted that she no longer wants to follow with her current renal case manager, she wants to see a different renal case manager group. I did consult Julio Yusuf. We will sign off Time with Patient: Greater than 30
[2024-08-23] MEDS: PANTOPRAZOLE 40 MG/10 ML VIAL IV SCH (07:26)
[2024-08-23] MEDS: METOCLOPRAMIDE 5 MG/ML 2 ML VIAL IVP PRN (07:27)
[2024-08-23] MEDS: AZITHROMYCIN 500 MG TAB PO SCH (07:28)
[2024-08-23] MEDS: HYDROcodone/APAP 5-325MG 1 EACH TAB PO PRN (09:41)
--- NOTE | 2024-08-23 11:00 | CA ---
Transthoracic Echo Report Name: Yvette Small Age: 64 Gender: F : 1960 Exam Date: 08/23/2024 08:54 Exam Location: [facility] Ht (in): 63 Wt (lb): 100 Ordering Physician: Markel Pena Attending/Referring Phys: Poker Machine Attendant Sole Schmitz RDCS Procedure CPT: Indications: pericardial effusion; malignancy Cardiac Hx: Cancer, Chemo Technical Quality: Fair Contrast 1: Total Dose (mL): Contrast 2: Total Dose (mL): MEASUREMENTS (Male / Female) Normal Values 2D ECHO LV Diastolic Diameter PLAX 4.2 cm 4.2 - 5.9 / 3.9 - 5.3 cm LV Systolic Diameter PLAX 2.8 cm IVS Diastolic Thickness 0.7 cm 0.6 - 1.0 / 0.6 - 0.9 cm LVPW Diastolic Thickness 0.7 cm 0.6 - 1.0 / 0.6 - 0.9 cm LV Relative Wall Thickness 0.3 RV Internal Dim ED PLAX 1.4 cm LV Diastolic Volume MOD BP 34.8 cm??? 67 - 155 / 56 - 104 cm??? LV Systolic Volume MOD BP 12.8 cm??? 22 - 58 / 19 - 49 cm??? LV Ejection Fraction MOD BP 63.1 % >= 55 % LV Cardiac Index MOD BP 1554.9 cm???/min???m??? LV Diastolic Volume MOD 4C 39.0 cm??? LV Systolic Volume MOD 4C 12.1 cm??? LV Ejection Fraction MOD 4C 68.8 % LV Cardiac Index MOD 4C 1899.6 cm???/min???m??? LV Diastolic Length 4C 6.6 cm LV Systolic Length 4C 5.3 cm LV Diastolic Volume MOD 2C 30.9 cm??? LV Systolic Volume MOD 2C 13.5 cm??? LV Ejection Fraction MOD 2C 56.4 % LV Cardiac Index MOD 2C 1232.9 cm???/min???m??? LV Diastolic Length 2C 6.7 cm LV Systolic Length 2C 5.3 cm LA Volume 27.8 cm??? 18 - 58 / 22 - 52 cm??? LA Volume Index 19.7 cm???/m??? 16 - 28 cm???/m??? M-MODE Aortic Root Diameter MM 2.5 cm LA Systolic Diameter MM 2.8 cm LA Ao Ratio MM 1.1 AV Cusp Separation MM 1.6 cm DOPPLER TR Peak Velocity 256.6 cm/s TR Peak Gradient 26.3 mmHg FINDINGS Left Ventricle Left ventricular ejection fraction is estimated at 55-60 %. Normal left ventricular systolic function with no obvious regional wall motion abnormalities. Left ventricular cavity size normal. Left ventricular wall thickness normal. Right Ventricle Normal right ventricular size and function. Right ventricular systolic pressure within normal limits. Right Atrium Normal right atrial size. Left Atrium Normal left atrial size. Mitral Valve Structurally normal mitral valve. Trace to mild mitral regurgitation. No mitral stenosis. Aortic Valve Trileaflet aortic valve. No aortic valve stenosis or regurgitation. Tricuspid Valve Structurally normal tricuspid valve. Mild tricuspid regurgitation. No tricuspid stenosis. Pulmonic Valve Structurally normal pulmonic valve. No pulmonic stenosis. Trace pulmonic regurgitation. Pericardium Moderate pericardial effusion. Respiratory variation of tricuspid flow. Aorta Normal size aortic root and proximal ascending aorta. CONCLUSIONS Normal LV size and systolic function. Mild mitral and tricuspid regurgitation. Moderate-sized pericardial effusion no clearcut Tamponade Previewed by: Dr. Jaime Lara MD (Electronically Signed) Final Date: 23 August 2024 10:59
[2024-08-23] MEDS: DEXAMETHASONE SOD PHOSPHATE 4 MG/ML 1 ML VIAL IVP SCH (13:14)
[2024-08-23] MEDS ORDERED: NON FORMULARY DRUG (Albuterol Inhaler 90 MCG Puff) INHALATION PRN (14:11)
[2024-08-23] MEDS ORDERED: SYMBICORT 160-4.5 MCG INHALER INHALATION PRN (14:11)
[2024-08-23] MEDS ORDERED: ONDANSETRON ODT 8 MG TAB.RAPDIS PO PRN (14:11)
[2024-08-23] MEDS ORDERED: IPRATROPIUM-ALBUTEROL 3 ML NEB INHALATION PRN (14:11)
--- NOTE | 2024-08-23 14:25 | P.GSCN ---
History of Present Illness Consult date: 08/23/24 Reason for Consult: Pericardial effusion Requesting physician: Julio Morales History of present illness: This is a 64-year-old female who follows outpatient with Dr. Stroud for primary care. She has a previous medical history of recent diagnosis of pulmonary adenocarcinoma carcinoma diagnosed in 04/2024, breast cancer status post left mastectomy in 2009, previous tobacco dependence, COPD, pneumonia, hyperlipidemia, TIA, and family history of cancer on her father side. She presented to [facility] emergency room yesterday with complaints of shortness of breath, chest pain, nausea, vomiting, weakness. Apparently she underwent EBUS 05/03/24 and was diagnosed with pulmonary adenocarcinoma. Per the patient she has undergone 2 radiation treatments but has not yet started chemotherapy. She was following with an oncologist in [place], had not yet had a chance to establish with medical oncology in this area but did follow with Dr. Pablo from radiation oncology. According to the patient and her her health has been declining since lung cancer diagnosis. Chest CTA in the emergency room noted no pulmonary embolism, but there was noted progression of disease with increased size in the right suprahilar mass and mediastinal adenopathy along with encasement and narrowing of the right upper and middle lobe bronchi and redemonstration of scattered probable metastatic pulmonary nodules. There was concern for SVC obstruction from surrounding confluent adenopathy/lung mass, as well as increased moderate to large sized right pleural effusion. CTA also noted small to moderate size pericardial effusion. Lab work revealed WBC 11.2, hemoglobin 12.3, INR 1.6, creatinine 0.9, lactic acid 1.4, troponin was negative, BNP was 216, procalcitonin was 0.35, and viral PCR's were negative. The patient was started on IV antibiotics and pain medication and admitted with consultation placed to pulmonology and oncology. Transthoracic echocardiogram was completed demonstrating normal left ventricular systolic function with EF 55 to 60%, no regional wall motion abnormalities, no RV collapse, trace to mild mitral regurgitation and mild tricuspid regurgitation. Moderate pericardial effusion was seen without tamponade physiology. Due to findings of pericardial effusion consultation was placed to cardiothoracic surgery for recommendations. Review of Systems Review of systems was completed and was negative except as noted - Constitutional Reports weakness - Cardiovascular Reports chest pain, Reports shortness of breath - Gastrointestinal Reports nausea Past Medical History Past Medical History: Cancer, COPD, Eye Disorder, Hyperlipidemia, Pneumonia, Renal Disease Additional Past Medical History / Comment(s): Left breast cancer 2009, kidney stones , skin cancer, glaucoma, Hepatitis C (treated years ago), and osteoporosis 2018. Lung Ca (adenocarcinoma) diagnosed in 2023-currently receiving radiation, right pleural effusion, moderate pericardial effusion History of Any Multi-Drug Resistant Organisms: None Reported Past Surgical History: Breast Surgery Additional Past Surgical History / Comment(s): Right salpingo-oophorectomy 2010(benign), lithotripsy, stents placed and removed for kidney stones. Colonoscopy 2014. Left breast mastectomy. Right chest infusaport. Bronchoscopy 05/03/24-Lung biopsy Past Anesthesia/Blood Transfusion Reactions: Postoperative Nausea & Vomiting (PONV) Past Psychological History: Anxiety Smoking Status: Former smoker Past Alcohol Use History: Rare Additional Past Alcohol Use History / Comment(s): Previous heavy alcohol use as a teenager. Past Drug Use History: None Reported Additional History: Quit smoking in 2022. - Past Family History Father Family Medical History: Cancer Additional Family Medical History / Comment(s): Lung cancer. Maternal cousin Family Medical History: Cancer Additional Family Medical History / Comment(s): Breast cancer. Medications and Allergies Home Medications Medication Instructions Recorded Confirmed Type Budesonide-Formot 160-4.5 Mcg 2 puff INHALATION RT-BID PRN 10/14/23 08/22/24 History [Symbicort 160-4.5 Mcg Inhaler] HYDROcodone/APAP 10-325MG [[place] 1 tab PO Q6HR PRN 3 Days #12 tab 08/12/24 08/22/24 Rx 10-325] Albuterol Inhaler [Ventolin Hfa 2 puff INHALATION RT-QID PRN 08/22/24 08/22/24 H istory Inhaler] Ipratropium-Albuterol Nebulize 3 ml INHALATION RT-QID PRN 08/22/24 08/22/24 H istory [Duoneb 0.5 mg-3 mg/3 ml Soln] Ondansetron Odt [Zofran Odt] 8 mg PO Q8H PRN 08/22/24 08/22/24 History Pantoprazole [Protonix] 40 mg PO BID 08/22/24 08/22/24 History Allergies Allergy/AdvReac Type Severity Reaction Status Date / Time heparin (porcine) Allergy Swelling Verified 08/22/24 11:44 Surgical - Exam Vital Signs Temp Pulse Resp BP Pulse Ox 98.2 F 110 H 20 112/78 90 L 08/22/24 09:15 08/22/24 09:15 08/22/24 09:15 08/22/24 09:15 08/22/24 09:15 CONSTITUTIONAL: Awake and alert, appears somewhat comfortable, cooperative, no acute distress EYES: Pupils equal, round, reactive to light, normal ocular movement ENT: Moist mucous membranes without oral lesions present NECK: No masses, no bruits, trachea midline RESPIRATORY: Lungs sounds coarse bilaterally. Respirations even, nonlabored. Currently on 3 L with oxygen saturation 91%. Strong cough CARDIOVASCULAR: S1, S2 present. Regular rate and rhythm. Palpable peripheral pulses bilaterally. No edema present. No calf pain or tenderness noted GASTROINTESTINAL: Abdomen soft, nontender, nondistended without masses or organomegaly noted. There is no rebound or guarding present. Active bowel sounds present 4 quadrants. GENITOURINARY: Deferred INTEGUMENTARY: Skin is warm and dry NEUROLOGIC: Cranial nerves II through XII intact, normal coordination, no obvious motor or sensory deficits, speech is normal MUSKULOSKELETAL: Able to move all extremities, strength equal bilaterally, normal posture PSYCHIATRIC: Alert and oriented to person place and time, appropriate affect, intact judgment and insight Results - Labs 08/22/24 09:55 08/22/24 09:55 - Imaging CT scan - chest: report reviewed, image reviewed Additional studies: Echo reviewed Assessment and Plan Assessment: Pericardial effusion, chronic, without tamponade physiology Right-sided pleural effusion Shortness of breath/chest pain secondary to above History of recent diagnosis of pulmonary adenocarcinoma carcinoma diagnosed in 04/2024, status post 2 radiation treatments, no chemotherapy yet Breast cancer status post left mastectomy in 2009 Previous tobacco dependence COPD Pneumonia Hyperlipidemia TIA Family history of cancer on her father's side Plan: The patient was seen and examined sitting up in bed on the medical oncology unit in no acute distress. was present. Chart/diagnostics reviewed, the case will be discussed in detail with Dr. Trujillo. Upon reviewing CAT scans and PET scans since April the patient has continued to have a small to moderate pericardial effusion, chronic in nature, without tamponade physiology. The patient does have, however, an increasing right sided pleural effusion along with what appears to be progression of her lung cancer which is much more likely the cause of the patient's symptomatology. Will defer treatment of pleural effusion to Dr. Morales, treatment of lung cancer to Dr. Nunn/Samy. Thank you Dr. Morales for this consult. We will continue to follow along with you and make further recommendations as appropriate
[2024-08-23] MEDS: HYDROcodone/APAP 10-325MG 1 EACH TAB PO PRN (16:04)
--- NOTE | 2024-08-23 17:16 | P.CONS ---
History of Present Illness - Reason for Consult Consult date: 08/23/24 lung cancer Requesting physician: Lorin Fall - Chief Complaint SOB - History of Present Illness Ms Small is a 64 year old female who was initially seen in consult at [facility] on 10/15/23. The patient has a long-standing history of smoking, and had developed some increased shortness of breath and productive cough over the prior few days. The patient had been placed on medication, including steroids and developed epigastric pain, leading her to come to the hospital. Chest x-ray and CT scan of the lung showed a right upper lobe opacity that was consistent with pn eumonia. It also showed a right lower lobe nodule that was 8 mm in maximal size, versus 6 mm, on prior CT done in 2019. It had been 4 mm in 2018. The patient had left-sided breast cancer treated with lumpectomy and lymph node dissection in 2010. She did not receive chemotherapy or radiation. She states that a "5 year pill" was discussed with her but she decided against it. Apparently she didn't follow with oncology for a few years at the [facility] but then stopped doing so. The patient has a history of smoking 1 pack a day plus for 50 years. She had started to cut down over the past year slowly, and had quit around . Last colonoscopy was 10 years ago and she had had a negative Cologard within the last 1-2 months. Apparently she had been getting mammograms regularly and these had been negative, according to her. It was decided to treat her for pneumonia, and then follow up as an outpatient with PET scan. She had a PET scan done on 11/17/23. This revealed persistent m asslike consolation in the anterior right midlung , positive, SUV of 4.38, 1.2 right upper lobe lung nodule with SUV 5.03, 6 mm right lower lobe nodule without uptake. There was some mild hypermetabolic uptake noted in a right hilar node, subcentimeter, SUV 5.9, and enlarged right tracheobronchial 1.5 cm, with SUV of 6.03. No other areas of hypermetabolic uptake were seen. These were discussed w ith the patient on her f/u on 11/24/23. She was advised that given the findings, malignancy is definitely a concern. In case of malignancy, metastatic recurrence of breast cancer, as well as a new primary such as lung cancer, given her history of smoking, would both be major differentials. Given the borderline size of the lymph nodes, as well as some persistent lung consolidation, benign causes such as ongoing inflammatory change remains within the differential. As malignancy is a definite concern, it was strongly recommended the patient have evaluation for tissue diagnosis. She is already established with pulmonary medicine, and was referred back to them for bronchoscopic biopsy, including with endobronchial ultrasound if felt to be needed. The patient had questions about delaying further workup for a few months. She was advised that if she does have a new primary lung malignancy, with lymph node involvement, it could be eligible for potentially curative treatment based on stage evident on the PET scan. In that case delay of some months could lead to progression to an incurable state. She was therefore agreeable to the same. Patient then was lost to f/u canceling her subsequent followup. Patient unfortunately delayed f/u and workup but finally did proceed to bronchoscopy on 05/03/2024, biopsy revealing pulmonary adenocarcinoma. She has since established care with radiation oncology, Dr. Pablo and oncology at [facility]. She began radiation on 08/20/2024 and was scheduled to begin chemo today at [facility]. Patient presented to the emergency with complaints of SOB and chest pain. Also reporting over the last couple weeks she has been experiencing decreased oral intake and nausea and vomiting. CTA chest was negative for pulmonary embolism. Progression of disease with increased size of right suprahilar mass with confluent mediastinal adenopathy. Results in narrowing of the right main pulmonary artery and right upper lobe pulmonary arteries. Additionally there is encasement and narrowing of the right upper and middle lobe bronchi. Redemonstration of scattered probable metastatic pulmonary nodules. There are multiple collateral vessels identified within the right chest soft tissues concerning for SVC obstruction. Increased moderate to large size right pleural effusion. Similar patchy groundglass opacities throughout the right lung with new patchy groundglass opacities within the left left lower lobe concerning for superimposed infectious process versus pulmonary edema. Similar small to moderate-sized pericardial effusion. Chest ultrasound showing moderate to large size right pleural effusion. Pulmonology consulted. Viral panel negative. Troponin negative. BNP 216. WBC 11.2, hemoglobin 12.3, platelets 3 and 50,000. Patient is afebrile. SpO2 92% on 3 L. Review of Systems 10 point ROS is negative except as stated in the HPI Past Medical History Past Medical History: Cancer, Eye Disorder, Renal Disease Additional Past Medical History / Comment(s): Left breast cancer 2009, kidney stones , skin cancer, glaucoma, Hepatitis C (treated years ago), and osteoporosis 2018. Followed for a pulmonary nodule. 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 Lung Ca diagnosed in 2022-currently receiving radiation History of Any Multi-Drug Resistant Organisms: None Reported Past Surgical History: Breast Surgery Additional Past Surgical History / Comment(s): Right salpingo-oophorectomy 2009(benign), lithotripsy, stents placed and removed for kidney stones. Colon oscopy 2014. Left breast mastectomy. Right chest infusaport. Bronchoscopy Jun 07, 2024-Lung biopsy Past Anesthesia/Blood Transfusion Reactions: Postoperative Nausea & Vomiting (PONV) Past Psychological History: Anxiety Smoking Status: Former smoker Past Alcohol Use History: Rare Additional Past Alcohol Use History / Comment(s): Quit smoking in 2018. Previous heavy alcohol use as a teenager. Past Drug Use History: None Reported - Past Family History Father Family Medical History: Cancer Additional Family Medical History / Comment(s): Lung cancer. Maternal cousin Family Medical History: Cancer Additional Family Medical History / Comment(s): Breast cancer. Medications and Allergies Home Medications Medication Instructions Recorded Confirmed Type Budesonide-Formot 160-4.5 Mcg 2 puff INHALATION RT-BID PRN 10/14/23 08/22/24 History [Symbicort 160-4.5 Mcg Inhaler] HYDROcodone/APAP 10-325MG [[place] 1 tab PO Q6HR PRN 3 Days #12 tab 08/12/24 08/22/24 Rx 10-325] Albuterol Inhaler [Ventolin Hfa 2 puff INHALATION RT-QID PRN 08/22/24 08/22/24 History Inhaler] Ipratropium-Albuterol Nebulize 3 ml INHALATION RT-QID PRN 08/22/24 08/22/24 Hi story [Duoneb 0.5 mg-3 mg/3 ml Soln] Ondansetron Odt [Zofran Odt] 8 mg PO Q8H PRN 08/22/24 08/22/24 History Pantoprazole [Protonix] 40 mg PO BID 08/22/24 08/22/24 History Allergies Allergy/AdvReac Type Severity Reaction Status Date / Time heparin (porcine) Allergy Swelling Verified 08/22/24 11:44 Physical Exam Vitals: Vital Signs Temp Pulse Pulse Resp BP BP Pulse Ox 08/23/24 11:55 98.0 F 98 18 113/73 91 L 08/23/24 07:01 97.9 F 121 H 18 135/82 92 L 08/23/24 02:00 98.5 F 105 H 16 102/71 92 L 08/22/24 19:29 98.3 F 100 16 132/87 92 L 08/22/24 16:55 97.6 F 106 H 18 130/85 92 L 08/22/24 16:20 98.1 F 99 18 120/76 94 L Intake and Output 08/22/24 08/23/24 08/23/24 22:59 06:59 14:59 Other: Voiding Method Toilet Toilet # Voids 2 Weight 45.359 kg - Constitutional General appearance: average body habitus, no acute distress - EENT Eyes: anicteric sclerae, EOMI ENT: hearing grossly normal - Respiratory coarse throughout - Cardiovascular Rhythm: regular - Gastrointestinal General gastrointestinal: soft - Integumentary Integumentary: no cyanotic - Psychiatric Psychiatric: A&O x's 3 Results CBC & Chem 7: 08/22/24 09:55 08/22/24 09:55 CT scan - chest: report reviewed Assessment and Plan (1) Pneumonia Current Visit: Yes Status: Acute Priority: High Code(s): J18.9 - PNEUMONIA, UNSPECIFIED ORGANISM SNOMED Code(s): 548974392 (2) SVC (superior vena cava obstruction) Current Visit: Yes Status: Acute Priority: High Code(s): I87.1 - COMPRESSION OF VEIN SNOMED Code(s): 367417681 (3) Lung cancer Current Visit: Yes Status: Acute Priority: High Code(s): C34.90 - MALIGNANT NEOPLASM OF UNSP PART OF UNSP BRONCHUS OR LUNG SNOMED Code(s): 948876445 Plan: Lung adenocarcinoma, SVC syndrome: Presented with complaints of SOB and chest pain, decreased oral intake and nausea and vomiting. -Oncology history as dictated in the HPI -Patient unfortunately delayed f/u and workup but finally did proceed to bronchoscopy on 05/03/2024, biopsy revealing pulmonary adenocarcinoma. She has since established care with radiation oncology, Dr. Pablo and oncology at [facility]. She began radiation on 08/20/2024 receiving 2 fractions and was scheduled to begin chemo today at [facility]. Pt stating she no longer wants to follow with [facility] due to distance from home, and had plans to reestablish care with Dr. Nunn. F/u was scheduled for 08/24 -Upon admit CTA chest was negative for pulmonary embolism. Progression of disease with increased size of right suprahilar mass with confluent mediastinal adenopathy. Results in narrowing of the right main pulmonary artery and right upper lobe pulmonary arteries. Additionally there is encasement and narrowing of the right upper and middle lobe bronchi. Redemonstration of scattered probable metastatic pulmonary nodules. There are multiple collateral vessels identified within the right chest soft tissues concerning for SVC obstruction. Increased moderate to large size right pleural effusion. Similar patchy groundglass opacities throughout the right lung with new patchy groundglass opacities within the left left lower lobe concerning for superimposed infectious process versus pulmonary edema. Similar small to moderate-sized pericardial effusion. -IV abx started for possible pneumonia -Chest ultrasound showing moderate to large size right pleural effusion. Pulmonology consulted, however, pt requested consult to different estate tax examiner, Dr. Morales -Rad onc following. Briefly discussed case. Will consult IR for evaluation for right sided thoracentesis -Dexamethsone 4mg q8 started -Will need to obtain restaging scans. Clinic f/u will be rescheduled to reestablish care with Dr. Nunn upon discharge Discussed above plan with pt, and she was agreeable to the same Doctor attests: I performed a history and physical examination of this patient, developed impression and plan of care. Discussed with dictator. I agree with dictators note, documented as a scribe.
[2024-08-23] MEDS ORDERED: PANTOPRAZOLE 40 MG TABLET PO SCH (21:00)
--- NOTE | 2024-08-24 09:57 | P.PN ---
Subjective Progress Note Date: 08/24/24 Principal diagnosis: Pericardial effusion. Past medical history significant for recent diagnosis of pulmonary adenocarcinoma carcinoma diagnosed in 04/2024, breast cancer status po st left mastectomy in 2009, previous tobacco dependence, COPD, pneumonia, hyperlipidemia, TIA, and family history of cancer on her father side. The patient was seen and examined in follow-up today August 24, 2024 at her bedside on the fifth floor medical oncology unit. She is currently up ambu lating in her room, is awake, alert, oriented x 3 and is in no acute apparent distress. She denies any complaints of pain or shortness of breath at this time. She denies any nausea this a.m., although states her appetite has diminished. States that she is getting some fluid drained off her right chest today. Oxygen saturations are 99% on 2 L nasal cannula. She underwent an ultrasound of her right chest yesterday which showed a 11.6 cm fluid pocket, her chest was marked. The patient has been afebrile in the last 24 hours. She remains on Rocephin for IV antibiotic coverage. Objective - Vital Signs Vital signs: Vital Signs Temp 97.6 F 08/24/24 07:10 Pulse 108 H 08/24/24 07:10 Resp 17 08/24/24 07:10 BP 113/76 08/24/24 07:10 Pulse Ox 99 08/24/24 09:02 FiO2 Intake & Output 08/23/24 08/24/24 08/24/24 18:59 06:59 18:59 Other: Voiding Method Toilet Toilet # Voids 3 2 - Exam CONSTITUTIONAL: Appears comfortable, cooperative, no acute distress RESPIRATORY: Lungs sounds essentially clear to her left lobes, diminished to her right lobes. Respirations symmetrical, nonlabored. Currently on 2 L nasal cannula with oxygen saturation 99%. Strong cough. CARDIOVASCULAR: S1, S2 present. Regular rate and rhythm. Palpable peripheral pulses bilaterally. No edema present. No calf pain or tenderness noted. GENITOURINARY: Continues to void. INTEGUMENTARY: Skin is warm and dry with evidence of good perfusion. NEUROLOGIC: Cranial nerves II through XII intact. MUSKULOSKELETAL: Able to move all extremities, strength equal bilaterally, gait normal. PSYCHIATRIC: Alert and oriented to person place and time, appropriate affect, intact judgment and insight - Allied health notes Allied health notes reviewed: nursing - Labs CBC & Chem 7: 08/22/24 09:55 08/22/24 09:55 Labs: Microbiology - Last 24 Hours (Table) 08/22/24 11:44 Blood Culture - Preliminary Blood - Imaging and Cardiology Ultrasound of the chest results reviewed. Assessment and Plan Assessment: Pericardial effusion, chronic, without tamponade physiology Right-sided pleural effusion Shortness of breath/chest pain secondary to above History of recent diagnosis of pulmonary adenocarcinoma carcinoma diagnosed in 04/2024, status post 2 radiation treatments, no chemotherapy yet Breast cancer status post left mastectomy in 2009 Previous tobacco dependence COPD Pneumonia Hyperlipidemia TIA Family history of cancer on her father's side Plan: Right pleural effusion management per Dr. Morales and interventional radiology. The patient is scheduled for a right thoracentesis today by interventional radiology. Wean oxygen as tolerated. Increase activity as tolerated. Medical management of other comorbidities per internal medicine, Dr. Morales, and oncology service. More recommendations to follow based on patient's clinical course. Time with Patient: Less than 30
--- NOTE | 2024-08-24 10:27 | P.CNPUL ---
History of Present Illness Consult date: 08/24/24 Reason for consult: dyspnea, cough, hypoxemia, pneumonia Chief complaint: Shortness of breath History of present illness: Patient is a 64-year-old female who follows outpatient with Dr. Stroud for primary care. She has a previous medical history of recent diagnosis of pulmonary adenocarcinoma carcinoma diagnosed in 04/2024, breast cancer status post left mastectomy in 2009, previous tobacco dependence, COPD, pneumonia, hyperlipidemia, TIA, and family history of cancer on her father side. She presented to [facility] emergency room August 22, 2024 with complaints of shortness of breath, chest pain, nausea, vomiting, weakness. Patient follows Dr. 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 Review of the data revealed that daya ent underwent EBUS 05/03/24 and was diagnosed with pulmonary adenocarcinoma. Per the patient she has undergone 2 radiation treatments but has not yet started chemotherapy. She was following with an oncologist in [place], had not yet had a chance to establish with medical oncology in this area but did follow with Dr. Pablo from radiation oncology, apparently genomic testing was done as per patient results are not available. Review of the data including chest CTA in the emergency room noted no pulmonary embolism, but there was noted progression of disease with increased size in the right suprahilar mass and mediastinal adenopathy along with encasement and narrowing of the right upper and middle lobe bronchi and redemonstration of scattered probable metastatic pulmonary nodules. There was concern for SVC obstruction from surrounding confluent adenopathy/lung mass, as well as increased moderate to large sized right pleural effusion. CTA also noted small to moderate size pericardial effusion. Lab work revealed WBC 11.2, hemoglobin 12.3, INR 1.6, creatinine 0.9, lactic acid 1.4, t roponin was negative, BNP was 216, procalcitonin was 0.35, and viral PCR's were negative. The patient was started on IV antibiotics and pain medication and admitted with consultation placed to pulmonology and oncology. Transthoracic echocardiogram was completed demonstrating normal left ventricular systolic function with EF 55 to 60%, no regional wall motion abnormalities, no RV collapse, trace to mild mitral regurgitation and mild tricuspid regurgitation. Moderate pericardial effusion was seen without tamponade physiology. Cardiothoracic services have evaluated the patient and considered not to be a candidate for pericardial window, patient however is scheduled for right thoracentesis by interventional radiology. Patient has ongoing complaints of mild shortness of breath and heaviness in the feeling however on specific questioning denies any fever chills denies any sputum production no hemoptysis present. Patient is being planned for chemo and radiotherapy with Dr. Pablo in the area Review of Systems All systems: negative Past Medical History Past Medical History: Cancer, Eye Disorder, Renal Disease Additional Past Medical History / Comment(s): Left breast cancer 2009, kidney stones , skin cancer, glaucoma, Hepatitis C (treated years ago), and osteoporosis 2018. Followed for a pulmonary nodule. 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 Lung Ca diagnosed in 2022-currently receiving radiation History of Any Multi-Drug Resistant Organisms: None Reported Past Surgical History: Breast Surgery Additional Past Surgical History / Comment(s): Right salpingo-oophorectomy 2009(benign), lithotripsy, stents placed and removed for kidney stones. Colonoscopy 2014. Left breast mastectomy. Right chest infusaport. Bronchoscopy Jun 07, 2024-Lung biopsy Past Anesthesia/Blood Transfusion Reactions: Postoperative Nausea & Vomiting (PONV) Past Psychological History: Anxiety Smoking Status: Former smoker Past Alcohol Use History: Rare Additional Past Alcohol Use History / Comment(s): Quit smoking in 2019. Previous heavy alcohol use as a teenager. Past Drug Use History: None Reported - Past Family History Father Family Medical History: Cancer Additional Family Medical History / Comment(s): Lung cancer. Maternal cousin Family Medical History: Cancer Additional Family Medical History / Comment(s): Breast cancer. Medications and Allergies Home Medications Medication Instructions Recorded Confirmed Type Budesonide-Formot 160-4.5 Mcg 2 puff INHALATION RT-BID PRN 10/14/23 08/22/24 History [Symbicort 160-4.5 Mcg Inhaler] HYDROcodone/APAP 10-325MG [[place] 1 tab PO Q6HR PRN 3 Days #12 tab 08/12/24 08/22/24 Rx 10-325] Albuterol Inhaler [Ventolin Hfa 2 puff INHALATION RT-QID PRN 08/22/24 08/22/24 History Inhaler] Ipratropium-Albuterol Nebulize 3 ml INHALATION RT-QID PRN 08/22/24 08/22/24 History [Duoneb 0.5 mg-3 mg/3 ml Soln] Ondansetron Odt [Zofran Odt] 8 mg PO Q8H PRN 08/22/24 08/22/24 History Pantoprazole [Protonix] 40 mg PO BID 08/22/24 08/22/24 History Allergies Allergy/AdvReac Type Severity Reaction Status Date / Time heparin (porcine) Allergy Swelling Verified 08/22/24 11:44 Physical Exam Vitals: Vital Signs Temp Pulse Resp BP Pulse Ox 08/24/24 09:02 99 08/24/24 07:10 97.6 F 108 H 17 113/76 93 L 08/24/24 01:45 98.1 F 89 16 119/79 91 L 08/23/24 20:00 98.3 F 105 H 16 96/64 92 L 08/23/24 11:55 98.0 F 98 18 113/73 91 L 08/23/24 11:11 92 L Intake and Output 08/23/24 08/24/24 08/24/24 22:59 06:59 14:59 Intake Total 240 Balance 240 Intake: Oral 240 Other: Voiding Method Toilet # Voids 3 2 - Constitutional General appearance: average body habitus, cooperative, disheveled, mild distress - EENT Eyes: EOMI, PERRLA Ears: bilateral: normal - Neck Carotids: bilateral: upstroke normal Thyroid: bilateral: normal size - Respiratory Respiratory: right: diminished, dullness, rales - Cardiovascular Rhythm: regular Heart sounds: normal: S1, S2 - Gastrointestinal General gastrointestinal: normal bowel sounds - Integumentary Integumentary: normal turgor - Neurologic Neurologic: CNII-XII intact - Musculoskeletal Musculoskeletal: gait normal, generalized weakness, strength equal bilaterally - Psychiatric Psychiatric: A&O x's 3, intact judgment & insight Results - Laboratory Findings CBC and BMP: 08/22/24 09:55 08/22/24 09:55 PT/INR, D-dimer PT 16.5 sec (10.0-12.5) H 08/22/24 09:55 INR 1.6 (<1.2) H 08/22/24 09:55 Abnormal lab findings: Abnormal Labs 08/22/24 08/22/24 08/22/24 09:55 09:55 09:55 WBC 11.2 H Neutrophils # 10.1 H Lymphocytes # 0.4 L PT 16.5 H INR 1.6 H Sodium 136 L Chloride 97 L BUN 22 H Glucose 121 H Alkaline Phosphatase 131 H - Diagnostic Findings Chest x-ray: report reviewed, image reviewed CT scan - chest: report reviewed, image reviewed Assessment and Plan Assessment: Shortness of breath related to COPD, lung cancer, pleural effusion, supportive care as needed bronchodilator and supplemental oxygen liters nasal cannula Metastatic stage IV adenocarcinoma, patient has received 2 cycles of radiation therapy being planned for chemotherapy SVC syndrome impending, oncology on consult following Sided pleural effusion, IR on consult for drainage Moderate pericardial effusion without any tamponade physiology, cardiothoracic surgery has evaluated patient no need for pericardial drainage currently Plan: Overall patient pulmonary standpoint fairly stable, postthoracentesis if remains stable can be discharged from pulmonary standpoint would recommend to follow her up on outpatient basis, radiation therapy and chemotherapy as per oncology recommendation Time with Patient: Greater than 30
[2024-08-24 11:45] LABS: Total Protein 6.1 g/dL (6.2-8.2)
[2024-08-24 11:51] VITALS: BMI 17.6
--- NOTE | 2024-08-24 13:53 | P.PN ---
Subjective Progress Note Date: 08/24/24 Reporting some improvement in SOB. Scheduled today for right sided thoracentesis. Afebrile, SPO2 93% on 2L. Objective - Vital Signs Vital signs: Vital Signs Temp 97.6 F 08/24/24 07:10 Pulse 108 H 08/24/24 07:10 Resp 17 08/24/24 07:10 BP 113/76 08/24/24 07:10 Pulse Ox 99 08/24/24 09:02 FiO2 Intake & Output 08/23/24 08/24/24 08/24/24 18:59 06:59 18:59 Intake Total 240 Balance 240 Weight 45.359 kg Intake: Oral 240 Other: Voiding Method Toilet Toilet Toilet # Voids 3 2 - Constitutional General appearance: Present: average body habitus, no acute distress - EENT Eyes: Present: anicteric sclerae, EOMI ENT: Present: hearing grossly normal - Respiratory Details: breathing is even and unlabored - Cardiovascular Details: skin warm and dry - Integumentary Integumentary: Absent: cyanotic - Psychiatric Psychiatric: Present: A&O x's 3 - Labs CBC & Chem 7: 08/22/24 09:55 08/22/24 09:55 Labs: Abnormal Lab Results - Last 24 Hours (Table) 08/23/24 Range/Units 00:13 Total Protein 6.1 L (6.2-8.2) g/dL Microbiology - Last 24 Hours (Table) 08/22/24 11:44 Blood Culture - Preliminary Blood Assessment and Plan (1) Pneumonia Current Visit: Yes Status: Acute Priority: High Code(s): J18.9 - PNEUMONIA, UNSPECIFIED ORGANISM SNOMED Code(s): 537183555 (2) SVC (superior vena cava obstruction) Current Visit: Yes Status: Acute Priority: High Code(s): I87.1 - COMPRESSION OF VEIN SNOMED Code(s): 513528093 (3) Lung cancer Current Visit: Yes Status: Acute Priority: High Code(s): C34.90 - MALIGNANT NEOPLASM OF UNSP PART OF UNSP BRONCHUS OR LUNG SNOMED Code(s): 657432681 Plan: Lung adenocarcinoma, SVC syndrome: Presented with complaints of SOB and chest pain, decreased oral intake and n ausea and vomiting. -Oncology history as dictated in the HPI -Patient unfortunately delayed f/u and workup but finally did proceed to bronchoscopy on 05/03/2024, biopsy revealing pulmonary adenocarcinoma. She has since established care with radiation oncology, Dr. Pablo and oncology at [facility]. She began radiation on 08/20/2024 receiving 2 fractions and was scheduled to begin chemo today at [facility]. Pt stating she no longer wants to follow with [facility] due to distance from home, and had plans to reestablish care with Dr. Nunn. F/u was scheduled for 08/24 -Upon admit CTA chest was negative for pulmonary embolism. Progression of disease with increased size of right suprahilar mass with confluent mediastinal adenopathy. Results in narrowing of the right main pulmonary artery and right upper lobe pulmonary arteries. Additionally there is encasement and narrowing of the right upper and middle lobe bronchi. Redemonstration of scattered probable metastatic pulmonary nodules. There are multiple collateral vessels identified within the right chest soft tissues concerning for SVC obstruction. Increased moderate to large size right pleural effusion. Similar patchy groundg lass opacities throughout the right lung with new patchy groundglass opacities within the left left lower lobe concerning for superimposed infectious process versus pulmonary edema. Similar small to moderate-sized pericardial effusion. -IV abx started for possible pneumonia -Dexamethsone 4mg q8 started -Chest ultrasound showing moderate to large size right pleural effusion. -Pulmonology and rad onc following -Scheduled for right sided thoracentesis today with IR. Cytology ordered -Will f/u on cytology results, if found to be positive this would confirm stage IV malignancy. Clinic f/u will be rescheduled upon discharge to further discuss treatment options and goals of care Discussed above plan with pt and family. All questions and concerns were addressed
--- NOTE | 2024-08-24 14:38 | XR ---
EXAMINATION TYPE: XR chest 1V portable DATE OF EXAM: 08/24/2024 1:45 PM COMPARISON: None. CLINICAL INDICATION: Female, 64 years old with history of post rt thoracentesis, TECHNIQUE: XR chest 1V portable view(s) obtained. FINDINGS: The heart size is normal. The pulmonary vasculature is normal. The lungs are clear. No p neumothorax is evident. Large right upper lobe infiltrate is present. Port is present on the right wi th the tip in superior vena cava region. IMPRESSION: 1. No pneumothorax post thoracentesis 2. Large right upper lung field infiltrate [facility], , 08/24/2024 2:35 PM
--- NOTE | 2024-08-24 15:39 | US ---
EXAMINATION TYPE: US thoracentesis DATE OF EXAM: 08/24/2024 2:16 PM COMPARISON: , chest radiograph CLINICAL INDICATION:Female, 64 years old with history of see IR consult for ordering information; PROCEDURE: Informed consent was obtained. The risks of the procedure were extensively explained incl uding risk of pneumothorax and need for chest tube placement. Procedure was performed in the Ultraso und procedure suite. Ultrasound imaging of the chest demonstrates right pleural effusion. An approp riate access site was localized to the right pleural space. Timeout was taken per protocol. The skin was prepped and draped in the usual sterile fashion and then locally anesthetized with 1% lidocaine. The pleural cavity was then accessed via a 5-Malagasy one-step needle/catheter. Approximately 1200 m L of clear straw-colored fluid was obtained. Samples were sent to the lab for analysis. Postprocedur al imaging of the chest demonstrate a decreased amount of pleural fluid. Patient tolerated procedure well without immediate complication. Hemostasis at the procedural site w as obtained with a sterile bandage placed. Immediate following the procedure, an inspiratory and expi ratory chest x-ray was reviewed. No post procedure pneumothorax was identified. The patient was monit ored in the holding area for approximately one hour following the procedure and was subsequently disc harged in stable condition. IMPRESSION: Ultrasound guided thoracentesis, with approximately 1200 mL of clear straw-colored fluid drained. Pathology results pending. No immediate complications were evident. [facility], , 08/24/2024 3:36 PM
[2024-08-24 19:22] LABS: Glucose, BF Source Pleural Fluid; Glucose, Body Fluid 181 mg/dL; LDH, Body Fluid Source Pleural Fluid; T. Protein, Body Fluid Source Pleural Fluid; Total Protein, Body Fluid 3500 mg/dL
[2024-08-24 20:28] LABS: Appearance,BF Slightly Cloudy (Clear)
--- NOTE | 2024-08-24 21:07 | US ---
"EXAMINATION TYPE: US venous doppler duplex UE RT DATE OF EXAM: 08/24/2024 COMPARISON: NONE CLINICAL INDICATION: Female, 64 years old with history of swelling/rule out DVT; Swelling, SVT port p laced 1 month ago TECHNIQUE: Grayscale, color Doppler and spectral Doppler imaging of the upper extremity. SIDE PERFORMED: Right FINDINGS: Right Arm: Positive for DVT There is occlusive DVT at the mid/distal subclavian vein Grayscale, color doppler, spectral doppler imaging performed of the deep veins of the upper extremiti es. IMPRESSION: Positive deep vein thrombosis of the right subclavian vein. A Jackson level critical message alert has been initiated for Edison Stroud MD via the [facility] | Critical Results System on 08/24/2024 9:05 PM. This message alert has been sent to Mariel Stroud MD via the preferences provided by the clinician for the receipt of Radiology Critical Findings. Message ID [id number]. [facility], , 08/24/2024 9:05 PM"
[2024-08-24] MEDS: APIXABAN 5 MG TAB PO SCH (22:34)
--- NOTE | 2024-08-25 01:11 | HP ---
HISTORY AND PHYSICAL CHIEF COMPLAINT: Chest pain, pneumonitis, facial edema, and carcinoma of the lung. HISTORY OF PRESENT ILLNESS: This is another admission for this 64-year-old white female with carcinoma of the right lung. She presented to the emergency room with quite a bit of chest discomfort actually on the left than the right. She is very short of breath. She does have advanced lung cancer in the right lung probably involving the superior vena cava. REVIEW OF SYSTEMS: She has had no hemoptysis. She has had chills. She has had no vomiting, diarrhea, etc. She does have loss of appetite. Past medical history, family history, personal and social histories reveal that she is allergic to Repatha, Ultram, and statins. She is on numerous medications including Lyrica, Vicodin, ibuprofen, Symbicort, and updrafts. Past medical history, family history, personal and social histories are all otherwise unremarkable. PHYSICAL EXAMINATION: VITAL SIGNS: Normal. HEAD, EARS, EYES, NOSE, MOUTH AND THROAT: Suggest that she has some facial edema and she appears to be slightly dusky. CHEST: Demonstrates decreased breath sounds throughout and more so on the right. CARDIAC: Demonstrates sinus rhythm with a tachycardia. ABDOMEN: Soft and nontender. EXTREMITIES: Normal. NEUROLOGICAL: She is intact. ASSESSMENT: She is admitted to the hospital with diagnoses of, 1. Carcinoma of the right lung. 2. Superior vena cava syndrome. PLAN: 1. Bed rest. 2. IV fluids. 3. Analgesics. 4. Consult with radiation and chemotherapies. MMJESSICAL / AMBROSEN: [id number] /
--- NOTE | 2024-08-25 04:29 | PN ---
PROGRESS NOTE DATE OF SERVICE: 08/23/2024 CHIEF COMPLAINT: Chest pain and carcinoma of the lung. HISTORY OF PRESENT ILLNESS: This lady is still having quite a bit of chest discomfort. She is not coughing up any blood. She is still short of breath. PHYSICAL EXAMINATION: CHEST: Poor breath sounds bilaterally. CARDIAC: Normal. ABDOMEN: Soft and nontender. IMPRESSION: Advanced carcinoma of the lung. PLAN: 1. Continue with IV fluids and analgesics. 2. Await recommendations from Pulmonology and Oncology. MMODL / IJN: [id number] /
--- NOTE | 2024-08-25 05:14 | PN ---
PROGRESS NOTE DATE OF SERVICE: 08/24/2024 CHIEF COMPLAINT: Carcinoma of the lung. HISTORY OF PRESENT ILLNESS: This lady is feeling much better. Her pain is under much better control. PHYSICAL EXAMINATION: LUNGS: Breath sounds are diminished on the right side. CARDIAC: Normal. ABDOMEN: Soft and nontender. IMPRESSION: Advanced carcinoma of the right lung with metastases. PLAN: Continue to keep her as comfortable as possible while Oncology and Radiation therapy set up a discharge plan as well as treatment plan. MMODL / IJN: [id number] /
[2024-08-25 13:20] VITALS: BP 107/69; PULSE 85; RESP 18; TEMP 98.5
--- NOTE | 2024-08-26 20:37 | P.DS ---
Providers Date of admission: 08/22/24 11:20 Attending physician: Edison Stroud Consults: 08/22/24 11:25 Consult Physician Urgent Consulting Provider: Justin Ramos Consult Reason/Comments: Possible pneumonia, lung cancer patient Do you want consulting provider notified?: Yes Consult Physician Urgent Consulting Provider: Candelario Nunn Consult Reason/Comments: Lung cancer patient Do you want consulting provider notified?: Yes 08/22/24 23:43 Consult Physician Urgent Consulting Provider: Long Pablo Consult Reason/Comments: established patient; lung cancer; SVC syndrome Do you want consulting provider notified?: Yes 08/22/24 23:54 Consult Physician Urgent Consulting Provider: Julio Morales Consult Reason/Comments: 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; known history lung cancer Do you want consulting provider notified?: Yes 08/23/24 12:07 Consult Physician Urgent Consulting Provider: Elías Trujillo Consult Reason/Comments: Moderate size Pericardial effusion/Pericardial Window Do you want consulting provider notified?: Yes Primary care physician: Edison Stroud Hospital Course: Final Diagnosis Lung adenocarcinoma with SVC syndrome Acute DVT of the right subclavian vein started on Eliquis Acute hypoxic respiratory failure secondary to large right-sided pleural effusion History of breast cancer with left mastectomy History of COPD with acute exacerbation Previous nicotine dependence Hyperlipidemia TIA history Discharge Disposition For discharge home. She is status post thoracentesis with 1200 mL lung. She was started on Eliquis for the acute DVT and will continue 10 mg twice a day for the next 6 days and transition to 5 mg twice daily. Patient requires close follow-up with her primary care provider Dr. Stroud as well as Dr. Nunn and Dr Pablo. Hospital Course This is a pleasant 64-year-old female who follows with Dr. Stroud in the office. Patient has a medical history of pulmonary adenocarcinoma diagnosed back in April 2024 as well as a history of breast cancer with left mastectomy in 2009, TIA, COPD, prior smoking history. Patient comes into the hospital with complaints of shortness of breath as well as chest pain nausea vomiting and weakness. Patient was initially following up with Dr. Ramos and underwent EBUS back in April 2020 for diagnosis of pulmonary adenocarcinoma and has undergone 2 rounds of radiation has not currently undergoing chemotherapy. 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 Pablo for 2 rounds of radiation. Patient had a CT angiography completed in November no pulmonary embolism she has noted disease progression of the right suprahilar mass and medial as well as redemonstration of scattered probable medical loss. There is also concern for SVC obstruction with surrounding confluent adenopathy and lung mass there is an increased moderate to large sized right pleural effusion. There is also note of moderate pericardial effusion. her initial blood work reveals a white blood, creatinine of 0.9, lactic acid 1.4. Procalcitonin level was and her proBNP is not elevated patient's viral panel is negative. She was started on IV antibiotics consult placed to pulmonary oncology and cardiothoracic surgery. Patient then had a transit thoracic echocardiogram completed showing EF of 55 to 60% trace to mild mitral regurgitation mild she does not know of moderate without tamponade physiology. Cardiothoracic did not feel patient was a candidate for pericardial window. She underwent thoracentesis with interventional radiology patient had 1200 mL of straw-colored fluid removed. This was sent for pathology and cytology. Patient had a venous Doppler completed of her right upper extremity due to swelling which does reveal a positive DVT in the right subclavian vein. She was started on Eliquis for anticoagulation by oncology. Has been weaned down to 2 L of tested for home oxygen the was 93% oxygen saturation on room air while up ambulating. She does not need to discharge she is not complaining of any shortness of breath or chest discomfort. She has been tolerating diet. Patient was cleared by all consultations for discharge home. Please see medication reconciliation for a list of current medications. Thank you for allowing us to participate in the care of this patient. The impression and plan of care has been dictated by Solange Skelton, Nurse Practitioner as directed. Dr. Hector MD I have performed a history and physical examination and medical decision making of this patient, discussed the same with the dictator, and agree with the dictators assessment and plan as written, documented as a scribe. Based on total visit time, I have performed more than 50% of this visit. Patient Condition at Discharge: Fair Plan - Discharge Summary Discharge Rx Participant: Yes New Discharge Prescriptions: New Apixaban [Eliquis] 5 mg PO BID #66 tab Continue Ipratropium-Albuterol Nebulize [Duoneb 0.5 mg-3 mg/3 ml Soln] 3 ml INHALATION RT-QID PRN PRN Reason: shortness of breath Albuterol Inhaler [Ventolin Hfa Inhaler] 2 puff INHALATION RT-QID PRN PRN Reason: Shortness Of Breath Budesonide-Formot 160-4.5 Mcg [Symbicort 160-4.5 Mcg Inhaler] 2 puff INHALATION RT-BID PRN PRN Reason: Shortness Of Breath HYDROcodone/APAP 10-325MG [[place] 10-325] 1 tab PO Q6HR PRN 3 Days #12 tab PRN Reason: Nausea Pantoprazole [Protonix] 40 mg PO BID Ondansetron Odt [Zofran ODT] 8 mg PO Q8H PRN PRN Reason: Nausea Discharge Medication List Budesonide-Formot 160-4.5 Mcg [Symbicort 160-4.5 Mcg Inhaler] 2 puff INHALATION RT-BID PRN 10/14/23 [History] HYDROcodone/APAP 10-325MG [[place] 10-325] 1 tab PO Q6HR PRN 3 Days #12 tab 08/12/24 [Rx] Albuterol Inhaler [Ventolin Hfa Inhaler] 2 puff INHALATION RT-QID PRN 08/22/24 [History] Ipratropium-Albuterol Nebulize [Duoneb 0.5 mg-3 mg/3 ml Soln] 3 ml INHALATION RT-QID PRN 08/22/24 [History] Ondansetron Odt [Zofran ODT] 8 mg PO Q8H PRN 08/22/24 [History] Pantoprazole [Protonix] 40 mg PO BID 08/22/24 [History] Apixaban [Eliquis] 5 mg PO BID #66 tab 08/25/24 [Rx] Follow up Appointment(s)/Referral(s): Candelario Nunn [STAFF PHYSICIAN] - 1 Week Edison Stroud MD [Primary Care Provider] - 1-2 days Julio Morales [STAFF PHYSICIAN] - 1 Week Ambulatory/Diagnostic Orders: Basic Metabolic Panel [LAB.AMB] Time Frame: 3 Days, Location: None Selected Complete Blood Count w/diff [LAB.AMB] Location: None Selected Patient Instructions/Handouts: Apixaban (By mouth), Deep Vein Thrombosis (DC), Deep Vein Thrombosis Prevention (DC) Activity/Diet/Wound Care/Special Instructions: Continue eliquis 10 mg twice daily for the next 6 days then transition to 5 mg twice daily. Need to follow up with oncology in the office. Discharge Disposition: HOME SELF-CARE
[2024-09-01] MEDS ORDERED: APIXABAN 5 MG TAB PO SCH (09:00)
== END 2024-08-25 14:56 | disposition home or self-care (01) | DRG 136 ==
LOC: EC 08:49 → 5NMEDONC 11:20
PROVIDERS: ADMIT Family Medicine; ATTEND Family Medicine
PROC: 0W993ZX Drainage of Right Pleural Cavity, Percutaneous Approach, Diagnostic (ICD-10-PCS; principal; 2024-08-24)
DX: C34.11 Malignant neoplasm of upper lobe, right bronchus or lung (principal); Z87.891 Personal history of nicotine dependence; C50.912 Malignant neoplasm of unspecified site of left female breast; C78.01 Secondary malignant neoplasm of right lung; J91.0 Malignant pleural effusion; J18.9 Pneumonia, unspecified organism; I87.1 Compression of vein; J96.01 Acute respiratory failure with hypoxia; E78.5 Hyperlipidemia, unspecified; I31.39 Other pericardial effusion (noninflammatory); I82.B11 Acute embolism and thrombosis of right subclavian vein; J44.0 Chronic obstructive pulmonary disease with (acute) lower respiratory infection; J44.1 Chronic obstructive pulmonary disease with (acute) exacerbation; R59.0 Localized enlarged lymph nodes; N28.9 Disorder of kidney and ureter, unspecified; F41.9 Anxiety disorder, unspecified; H40.9 Unspecified glaucoma; M81.0 Age-related osteoporosis without current pathological fracture; R62.7 Adult failure to thrive; Z79.51 Long term (current) use of inhaled steroids; Z28.311 Partially vaccinated for COVID-19; Z20.822 Contact with and (suspected) exposure to COVID-19; Z28.21 Immunization not carried out because of patient refusal; Z79.899 Other long term (current) drug therapy; Z85.828 Personal history of other malignant neoplasm of skin; Z86.73 Personal history of transient ischemic attack (TIA), and cerebral infarction without residual deficits; Z87.442 Personal history of urinary calculi; Z90.12 Acquired absence of left breast and nipple; Z86.19 Personal history of other infectious and parasitic diseases; Z88.8 Allergy status to other drugs, medicaments and biological substances; Z90.79 Acquired absence of other genital organ(s); Z90.721 Acquired absence of ovaries, unilateral; Z71.3 Dietary counseling and surveillance
CPT/HCPCS: 32555; 36415; 71045; 71275; 76604; 80053; 82150; 82945; 83605; 83615; 83690; 83735; 83880; 84145; 84155; 84157; 84484; 85025; 85610; 85730; 87040; 87070; 87075; 87205; 87449; 87636; 88108; 88305; 88341; 88342; 89050; 93005; 93306; 94760; 96361; 96365; 96367; 96375; 99285